=== PATIENT | female | born 1990 | race Caucasian/White ===

== ENCOUNTER → 2019-11-28 11:40 | Outpatient (CLI) | payer OTHER, SELFPAY | PROVIDERS: Visit Provider Obstetrics & Gynecology | DX: Z34.83 Encounter for supervision of other normal pregnancy, third trimester (principal); Z12.4 Encounter for screening for malignant neoplasm of cervix; Z11.3 Encounter for screening for infections with a predominantly sexual mode of transmission ==

== ENCOUNTER → 2019-12-11 13:11 | Outpatient (CLI) | payer OTHER, SELFPAY ==
[2019-12-11 14:05] LABS: Absolute Lymphocyte Count 1.49 X10^3/uL (0.83-4.51); Basophil# 0.02 X10^3/uL; Basophil% 0.3 % (0-1); Eosinophil# 0.03 X10^3/uL; Eosinophils% 0.5 % (0-5); Hematocrit 39.7 % (37-47); Lymphocyte # 1.49 X10^3/ul (4.0); Mean Corp Hgb Conc 32.7 g/dL (32-36); Mean Corpuscular Hgb 29.9 pg (27.0-32.0); Mean Corpuscular Volume 91.3 fL (81-99); Mean Platelet Vol. 10.2 fl (6.2-12.0); Monocyte# 0.41 X10^3/uL; Monocyte% 6.9 % (0-10); NRBC Flagged by Analyzer 0 % (0-5); Platelet Count 277 K/mm3 (150-450); RBC Distribution Width SD 43.6 fl (35.1-43.9); Red Blood Count 4.35 M/mm3 (4.2-5.4)
[2019-12-11 14:06] LABS: Color, Urine Yellow (Yellow); Glucose, Dipstick Normal (Normal); Ketone-Dipstick Negative (Negative); Leukocyte Esterase-Dipstick Negative /ul (Negative); Nitrite-Dipstick Negative (Negative); Occult Blood-Urine Negative /ul (Negative); Protein-Dipstick Negative (Negative); Specific Gravity, Urine 1.015 (1.002-1.030); Urine Bilirubin Dipstick Negative (Negative); Urine Clarity Sl. Cloudy (Clear); Urine Urobilinogen Normal (Normal)
[2019-12-11 14:24] LABS: Amphetamine Urine VISTA NEGATIVE (<1000 ng/mL); Barbiturate Urine VISTA NEGATIVE (< 200 ng/mL); Benzodiazepine Urine VISTA NEGATIVE (< 200 ng/mL); Cocaine Urine VISTA NEGATIVE (< 300 ng/mL); Ecstacy Urine VISTA NEGATIVE (< 500 ng/mL); Methadone Urine VISTA NEGATIVE (< 300 ng/mL); PCP Urine VISTA NEGATIVE (< 25 ng/mL); THC Urine VISTA NEGATIVE (< 50 ng/mL); Vista UDS pH Range 8
[2019-12-11 14:38] LABS: Ferritin 105 ng/mL (8-252); Iron 99 ug/dL (50-170); Iron Binding Capacity,Total 279 ug/dL (250-450); PERCENT IRON SATURATION 35.5 % (15.0-55.0); Thyroid Stim Hormone (TSH) 0.86 uIU/mL (0.358-3.74)
[2019-12-11 15:08] LABS: HIV - WCH Non-Reactive (Nonreactive); Hepatitis B Surface Antigen Non-Reactive (Nonreactive); Hepatitis C Antibody Non-Reactive (Nonreactive); Rubella IgG 73.4 IU/mL; Vitamin B12 370 pg/mL (211-911)
[2019-12-13 00:55] LABS: Prenatal RPR NONREACTIVE (NONREACTIVE)
== END ==
PROVIDERS: Visit Provider Obstetrics & Gynecology
DX: O99.841 Bariatric surgery status complicating pregnancy, first trimester (principal); Z3A.00 Weeks of gestation of pregnancy not specified
CPT/HCPCS: 36415; 80307; 81002; 82607; 82728; 83540; 83550; 83921; 84443; 85025; 86703; 86762; 86803; 87340

== ENCOUNTER → 2020-03-18 15:20 | Outpatient (CLI) | payer OTHER, SELFPAY ==
[2020-03-18 15:30] LABS: Mucous, Urine 0 SEEN /hpf (<or=2+); Red Blood Cells-Urine 0 SEEN /hpf (0-5)
[2020-03-18 16:12] LABS: Color, Urine Yellow (Yellow); Glucose, Dipstick Normal (Normal); Ketone-Dipstick Negative (Negative); Leukocyte Esterase-Dipstick 500 /ul (Negative); Nitrite-Dipstick Negative (Negative); Occult Blood-Urine Negative /ul (Negative); Protein-Dipstick Negative (Negative); Urine Bilirubin Dipstick Negative (Negative); Urine Clarity Sl. Cloudy (Clear); Urine Urobilinogen Normal (Normal)
[2020-03-18 16:55] LABS: Bacteria 1+ /hpf (None Seen); Squamous Epithelial Cells - UA 0-5 SEEN /hpf (5-10); White Blood Cells 10-25 SEEN /hpf (0-5)
== END ==
PROVIDERS: Visit Provider Obstetrics & Gynecology
DX: O23.41 Unspecified infection of urinary tract in pregnancy, first trimester (principal); Z3A.00 Weeks of gestation of pregnancy not specified
CPT/HCPCS: 81001; 87077; 87086; 87088; 87186

== ENCOUNTER → 2020-04-15 14:22 | Outpatient (CLI) | payer OTHER, SELFPAY ==
[2020-04-15 15:56] LABS: Hematocrit 37.4 % (37-47); Mean Corp Hgb Conc 32.1 g/dL (32-36); Mean Corpuscular Hgb 30.5 pg (27.0-32.0); Mean Corpuscular Volume 94.9 fL (81-99); Platelet Count 271 K/mm3 (150-450); RBC Distribution Width CV 12.7 % (11.6-14.6); RBC Distribution Width SD 44.4 fl (35.1-43.9); Red Blood Count 3.94 M/mm3 (4.2-5.4); White Blood Count 8.8 K/mm3 (4.4-11.0)
== END ==
PROVIDERS: Visit Provider Obstetrics & Gynecology
DX: Z34.83 Encounter for supervision of other normal pregnancy, third trimester (principal); Z87.440 Personal history of urinary (tract) infections
CPT/HCPCS: 36415; 85027; 87086; 87088

== ENCOUNTER → 2020-06-18 11:47 | Outpatient (CLI) | payer OTHER, SELFPAY | PROVIDERS: Visit Provider Obstetrics & Gynecology | DX: Z36.85 Encounter for antenatal screening for Streptococcus B (principal) | CPT/HCPCS: 87081 ==

== ENCOUNTER 2020-07-14 18:55 | Inpatient (IN) | payer OTHER, SELFPAY ==
[2020-07-14 19:46] VITALS: BP 116/63; PULSE 100; PULSE 85; TEMP 37.1; O2SAT 97
[2020-07-14] MEDS: Lactated Ringers 1,000 ML 50 ML IV (20:00)
[2020-07-14 20:15] VITALS: BMI 47.5
[2020-07-14 20:23] LABS: Absolute Neutrophil Count 6.3 X10^3/uL (2.0-7.7); Basophil# 0.02 X10^3/uL; Basophil% 0.2 % (0-1); Eosinophil# 0.09 X10^3/uL; Hematocrit 35.8 % (37-47); Hemoglobin 11.8 g/dL (12.0-15.0); Lymphocyte % 22.7 % (19-41); Mean Corpuscular Hgb 28.6 pg (27.0-32.0); Mean Corpuscular Volume 86.9 fL (81-99); Mean Platelet Vol. 10.3 fl (6.2-12.0); Monocyte# 0.72 X10^3/uL; Monocyte% 7.8 % (0-10); NRBC Flagged by Analyzer 0 % (0-5); Platelet Count 320 K/mm3 (150-450); RBC Distribution Width CV 12.6 % (11.6-14.6); RBC Distribution Width SD 39.6 fl (35.1-43.9); Red Blood Count 4.12 M/mm3 (4.2-5.4); White Blood Count 9.3 K/mm3 (4.4-11.0)
[2020-07-14] MEDS: miSOPROStol 25 MCG TABLET PO (20:46)
[2020-07-14 23:16] VITALS: BP 107/56; PULSE 71
[2020-07-15] VITALS (10 sets, daily range): BP systolic 94–131; BP diastolic 55–80; PULSE 67–87; TEMP 36.2–37; O2SAT 96–99
[2020-07-15] MEDS: miSOPROStol 50 MCG TABLET PO ×4 (00:40→18:23)
--- NOTE | 2020-07-15 08:29 | PCM.HPOB.BLA ---
History and Physical Date of Admission: 07/14/20 H&P HPI: 29 yo at 40/1w, BECCA 07/14/20 by 11w US, admitted for induction of labor at term. Denies contractions, VB, LOF. Denies Walker, vision changes, chest pain, dyspnea, nausea/emesis. 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 Medications PNV, vitamin D Past Surgical History Gastric sleepve, hip surgery 1995 Social History Tobacco use: denies Alcohol use: denies Illicit drug use: denies Labs Blood type: B+ Rubella: immune Hep B/C: neg/neg HIV: neg RPR: nonreactive GBS: neg 06/18 Allergies cefdinir Review of Systems General: alert and oriented HEENT: _denies change of vision Heart/lungs: _denies CP, SOB GI: _denies nausea, vomiting, dysuria, diarrhea MSK: _denies calf pain, tenderness Physical Exam Vital Signs Temp Pulse BP Pulse Ox 07/15/20 07:19 97.9 F 82 131/80 H 07/15/20 06:07 97.8 F 67 113/63 99 07/15/20 02:09 78 104/55 L 07/15/20 02:08 97.4 F L 98 07/15/20 02:07 87 96 07/15/20 00:36 97.7 F L 98 07/14/20 23:16 71 107/56 L General: a&o x3, NAD HEENT: normocephalic, atraumatic Cardio: no JVD Resp: no increased work in breathing Abdomen: soft, gravid, nontender Extremities: _minimal-moderate edema CE: cl/th/high per RN FHT: 125/mod robyn/+accel/no decel Socastee: not tracing Labs Laboratory Results - last 24 hr 07/14/20 07/14/20 20:00 20:00 WBC 9.3 RBC 4.12 L Hgb 11.8 L Hct 35.8 L MCV 86.9 MCH 28.6 MCHC 33.0 RDW Std Deviation 39.6 RDW Coeff of Robyn 12.6 Plt Count 320 MPV 10.3 Immature Gran % (Auto) 0.300 Neut % (Auto) 68.0 Lymph % (Auto) 22.7 Blackford % (Auto) 7.8 Eos % (Auto) 1.0 Baso % (Auto) 0.2 Absolute Neuts (auto) 6.3 Absolute Lymphs (auto) 2.10 Nucleated RBC % 0 Blood Type B POSITIVE Antibody Screen NEGATIVE COVID neg Assessment & Plan 29 yo at 40/1w, BECCA 07/14/20 by 11w US, admitted for induction of labor at term. 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
[2020-07-15] MEDS: 0.9% Saline Lock 10 ML Syringe IV ×3 (15:20→23:13)
[2020-07-15 18:49] LABS: ROM Internal Control Test YES-OK TO RESULT pt. (Internal QC)
[2020-07-15 18:50] LABS: ROM Patient Test POSITIVE (Negative)
--- NOTE | 2020-07-15 19:16 | PN_ITS ---
Progress Note LABOR PROGRESS NOTE Reports contractions are intensifying. Will plan for epidural later, but does not desire any pain medication at this time. AVSS GEN - NAD< AAO x 3 FHR 135, moderate variability, + accelerations, no decelerations TOCO 2/10 min SVE deferred Laboratory Tests 07/15/20 07/14/20 07/14/20 Range/Units 18:07 20:00 20:00 WBC 9.3 (4.4-11.0) K/mm3 RBC 4.12 L (4.2-5.4) M/mm3 Hgb 11.8 L (12.0-15.0) g/dL Hct 35.8 L (37-47) % MCV 86.9 (81-99) fL MCH 28.6 (27.0-32.0) pg MCHC 33.0 (32-36) g/dL RDW Std Deviation 39.6 (35.1-43.9) fl RDW Coeff of Robyn 12.6 (11.6-14.6) % Plt Count 320 (150-450) K/mm3 MPV 10.3 (6.2-12.0) fl Immature Gran % (Auto) 0.300 (0.0-0.9) % Neut % (Auto) 68.0 (47-70) % Lymph % (Auto) 22.7 (19-41) % Morrill % (Auto) 7.8 (0-10) % Eos % (Auto) 1.0 (0-5) % Baso % (Auto) 0.2 (0-1) % Absolute Neuts (auto) 6.3 (2.0-7.7) X10^3/uL Absolute Lymphs (auto) 2.10 (0.83-4.51) X10^3/uL Nucleated RBC % 0 (0-5) % Vag Amniotic Fld Detect POSITIVE H (Negative) Blood Type B POSITIVE Antibody Screen NEGATIVE A/P: 29yo G1 @ 40 1/7wga, hx gastric sleeve, BMI >40 with SROM, Cat I FHR -misoprostol dose # 4 administered -Reviewed ROM -Will reassess at 6 hours post 50mcg cytotec STROKE Vital Signs/Narrative: Vital Signs Temp Pulse BP 07/15/20 15:22 97.9 F 67 103/62
[2020-07-15] MEDS: Acetaminophen 500 MG Tablet PO (20:12)
[2020-07-15] MEDS: fentaNYL 100 MCG/2 ML Ampul IV (23:13)
[2020-07-16] VITALS (62 sets, daily range): BP systolic 88–123; BP diastolic 48–84; PULSE 63–104; RESP 16–18; TEMP 36.4–37.5; O2SAT 91–100
[2020-07-16] MEDS: Lactated Ringers 500 ML 999 ML IV ×4 (00:59→07:19)
--- NOTE | 2020-07-16 02:06 | PCM.PN.BLA ---
Progress Note LABOR PROGRESS NOTE Reports contractions intensifying. She would like an epidural. AVSS GEN - NAD< AAO x 3 FHR 130, moderate variability, + accelerations, no decelerations TOCO 2-3/10 min SVE 0/60/-3 per RN exam A/P: 29yo G1 @ 40 2/7wga, IOL s/p cytotec with ROM, CAt I FHR -Pt inquired about proceeding with section and safety at this time. Reviewed with patient related risks, benefits, however benefits of vaginal delivery far outweight benefits of section at this time and I advised proceeding in labor. Following discussion, pt agreeable to proceed in labor. -Will plan for pitocin following epidural placement, consider attempt at espinoza bulb placement when comfortable. STROKE Vital Signs/Narrative: Vital Signs Temp Pulse BP Pulse Ox 07/16/20 02:03 84 98 07/16/20 00:53 68 118/70 07/15/20 23:04 98.6 F 85 94/55 L 97
[2020-07-16] MEDS: fentaNYL-bupivacaine (epidural) 100 ML BAG EPIDURAL ×4 (02:20→16:59)
[2020-07-16] MEDS: Oxytocin 30 units/NS 500 ml 30 UNITS/500 ML IV.SOLN IV (03:01)
[2020-07-16] MEDS: Mag Hydrox/Al Hydrox/Simeth 30 ML UDC PO (03:14)
--- NOTE | 2020-07-16 04:07 | PCM.PN.BLA ---
Progress Note LABOR PROGRESS NOTE Comfortable with epidural. No complaints. AVSS GEN - NAD, AAO x 3 FHR 120, moderatev variability, + acceleration, + variable deceleration TOCO 3-4 /10 min, irregular SVE / 75/-3, bulging bag, soft and posterior A/P: 29yo G1 @ 40 2/7wga, IOL, Cat II FHR -Maternal and statuses reassuring -Transcervical espinoza catheter placed, 30cc NS -Continue pitocin as tolerated by mother and fetus STROKE Vital Signs/Narrative: Vital Signs Temp Pulse BP Pulse Ox 07/16/20 03:59 71 104/69 07/16/20 03:43 71 89/55 L 07/16/20 03:14 73 99 07/16/20 03:11 74 100/60 07/16/20 03:09 70 98 07/16/20 03:08 68 96/55 L 07/16/20 03:04 65 99 07/16/20 03:01 66 88/52 L 07/16/20 02:59 70 99 07/16/20 02:57 68 90/50 L 07/16/20 02:56 68 89/51 L 07/16/20 02:54 72 98 07/16/20 02:52 68 95/48 L 07/16/20 02:49 71 100 07/16/20 02:46 63 96/53 L 07/16/20 02:44 69 97 07/16/20 02:41 76 105/58 L 07/16/20 02:39 72 99 07/16/20 02:38 77 109/65 07/16/20 02:34 80 98 07/16/20 02:32 90 92/63 07/16/20 02:29 97.9 F 86 98 07/16/20 02:27 80 102/58 L 07/16/20 02:24 77 98 07/16/20 02:22 84 104/57 L 07/16/20 02:19 72 99 07/16/20 02:17 92 112/73 07/16/20 02:13 95 97 07/16/20 02:11 104 H 123/84 H 07/16/20 02:08 86 98 07/16/20 02:06 90 114/79 07/16/20 02:03 84 98 07/16/20 00:53 68 118/70
[2020-07-16] MEDS: 0.9% Normal Saline Single 100 ML IV.SOLN. INTRA-UTER (04:13)
[2020-07-16] MEDS: Lactated Ringers 1,000 ML 200 ML IV ×3 (04:18→16:08)
[2020-07-16] MEDS: Ondansetron 4 MG/2 ML Vial IV (10:49)
[2020-07-16] MEDS: 0.9% Saline Lock 10 ML Syringe IV (15:26)
--- NOTE | 2020-07-16 18:32 | PN.OBGYN_ITS ---
Subjective: Patient has progressed to approximately 5 cm 70% effaced but high station. She has now been ruptured more than 30 hours and has been at 5 cm for about 4 hours after being 4 cm for about 8 hours. Multiple labor positions have been tried but despite this and adequate contractions noted by an intrauterine pressure catheter the head has failed to descend past a high station. Further, effacement has remained at 70% since about 6 AM this morning. Patient is not on any antibiotics and has not had a fever to this point. heart tones have remained reactive. We have discussed the lack of descent of the head and lack of labor progress with the patient and her who desire that we proceed with section. We have discussed the risks, benefits, and alternatives and all questions were answered. - Physical Exam Vitals/I&O's: Vital Signs Temp Pulse BP Pulse Ox 98.2 F 75 104/55 L 98 07/16/20 17:38 07/16/20 17:38 07/16/20 17:38 07/16/20 17:38 Weight: 268 lb Body Mass Index (BMI) 47.5 Intake and Output for Last 24 Hours 07/14/20 07/15/20 07/16/20 23:59 23:59 23:59 Intake Total 51.67 / 51.67 0 / 0 6210.77 / 6210.77 Output Total 2100 / 2100 Balance 51.67 / 51.67 0 / 0 4110.77 / 4110.77 Microbiology Past 72 Hours 07/14/20 21:50 Mucosa - Nose SARS-CoV-2 Antigen (Rapid) - Final Laboratory Results 07/15/20 18:07: Vag Amniotic Fld Detect POSITIVE H Current Medications Acetaminophen (Acetaminophen 500 Mg Tablet) 500 - 1,000 mg PO Q6H PRN PRN PRN Reason: Pain Score 1-3 Last Admin: 07/15/20 20:12 Dose: 1,000 mg Documented by: Al Hydroxide/Mg Hydroxide (Mag Hydrox/Al Hydrox/Simeth 30 Ml Udc) 15 - 30 ml PO Q4H PRN PRN PRN Reason: INDIGESTION Last Admin: 07/16/20 03:14 Dose: 30 ml Documented by: Citric Acid/Sodium Citrate (Sodium Citrate/Citric Acid 30 Ml Udc) 30 ml PO X1 PRN PRN Reason: Section Ephedrine Sulfate (Ephedrine Sulfate 50 Mg/Ml Ampul) 10 mg IV Q10M PRN PRN Reason: hypotension Ephedrine Sulfate (Ephedrine Sulfate 50 Mg/Ml Ampul) 10 mg IM Q30M PRN PRN Reason: hypotension Fentanyl Citrate (Fentanyl 100 Mcg/2 Ml Ampul) 25 - 50 mcg IV Q2H PRN PRN PRN Reason: Pain Score 4-10 Last Admin: 07/15/20 23:13 Dose: 50 mcg Documented by: Fentanyl/Bupivacaine/Sodium Chlor (Fentanyl-Bupivacaine (Epidural) 100 Ml Bag) 0 ml EPIDURAL UD [facility]; Protocol Last Admin: 07/16/20 16:59 Dose: 100 ml Documented by: Lactated Ringer's () 500 mls @ 999 mls/hr IV .Q31M PRN PRN Reason: Epidural Last Infusion: 07/16/20 02:24 Dose: Infused Documented by: Lactated Ringer's () 500 mls @ 999 mls/hr IV .Q31M PRN PRN Reason: Corrective Measures Last Infusion: 07/16/20 07:50 Dose: Infused Documented by: Lactated Ringer's () 1,000 mls @ 50 mls/hr IV .Q20H [facility] Last Admin: 07/16/20 16:08 Dose: 200 mls/hr Documented by: Oxytocin/Sodium Chloride () 30 units in 500 mls @ 2 mls/hr IV .Q250H [facility] Last Infusion: 07/16/20 16:11 Dose: 16 mls/hr Documented by: Nalbuphine HCl (Nalbuphine 10 Mg/Ml Ampul) 5 mg IV Q3H PRN PRN PRN Reason: ITCHING Naloxone HCl (Naloxone 0.4 Mg/Ml Syringe) 0.02 mg IV Q1M PRN PRN Reason: RR <10 and pt unresponsive Ondansetron HCl (Ondansetron 4 Mg/2 Ml Vial) 4 mg IV Q4H PRN PRN PRN Reason: NAUSEA Last Admin: 07/16/20 10:49 Dose: 4 mg Documented by: Prochlorperazine Edisylate (Prochlorperazine 10 Mg/2 Ml Vial) 10 mg IV Q6H PRN PRN PRN Reason: NAUSEA Sodium Chloride (0.9% Saline Lock 10 Ml Syringe) 10 - 40 ml IV X1 PRN PRN Reason: SALINE FLUSH Last Admin: 07/16/20 15:26 Dose: 20 ml Documented by: Medical Necessity - Tobacco Use Smoking Status: Never smoker
[2020-07-16] MEDS: Sodium Citrate/Citric Acid 30 ML UDC PO (18:47)
--- NOTE | 2020-07-16 18:55 | OP.PCM_ITS ---
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 Indication: This is a 29-year-old who presents for her first at 40+ weeks gestation for arrest of descent. Patient initially presented the day before yesterday and has been ruptured for 30+ hours. She has remained at 5 cm for greater than 4 hours and at greater than 4 cm for more than 12 hours. station remains high. care has otherwise been uneventful except for gastric sleeve surgery in the past. Her BMI is approximately 48. The patient has been counseled regarding the risk and indications of this procedure including the possibility of bleeding infection and injury to surrounding structures such as bowel bladder. All questions were answered. Procedure: Patient was taken to the operating room where after spinal anesthesia was placed, the patient was prepped and draped in usual sterile fashion and a Valenzuela catheter was placed. The abdomen was entered through a Pfannenstiel incision and peritoneum was entered bluntly. After developing a bladder flap on the lower uterine segment a low transverse incision was made on the uterus and head was easily delivered onto the operative field the nose mouth and oropharynx were bulb suctioned. Subsequently a viable male infant was born with Apgars of 9/9. The infant was noted to cry move all extremities vigorously on the operative field. The umbilical cord was doubly clamped and ligated and handed to the nursery personnel who were present for the delivery. Placenta was delivered and noted to be 3 vessels and normal. Uterus was exteriorized and remaining placental tissue was removed. The uterus was then closed in 2 layers first with running locked 0 Vicryl suture followed by a second imbricating layer with 0 Vicryl suture. 0 Vicryl suture was then used in a horizontal mattress interrupted fashion to affect final hemostasis of the uterine incision line. Normal fallopian tubes and ovaries were visualized and the uterus was returned to the pelvis. Hemostasis was noted and rectus abdominis muscles were reapproximated in the midline with interrupted Number 0 Vicryl suture in a horizontal mattress fashion. Fascia was closed with running Number 1 PDS Strata fix suture. Subcutaneous tissue was irrigated with copious amounts of saline solution and then closed with running 3-0 Vicryl suture. Skin was closed with 4-0 monocryl suture in a running subcuticular fashion. Steri strips and a Mepilex dressing were placed across the incision. The patient tolerated the procedure well and was taken to the recovery room in satisfactory condition. Sponge, needle, and instrument counts were all reportedly correct. EBL was 500 cc. Ancef 2 gms IV was given prior to the procedure. Spicemen to Pathology: None Complications: None Amniotic Fluid Description: Clear Placenta Disposition: [facility] Specimen(s) sent to pathology: None Fluids Replaced: Crystalloid Cord Entanglement: None Cord Vessel Description: 3 Vessels Esitmated Blood Loss (ml): 500 cc Infant Gender: Male (1 minute): 9 (5 minute): 9 Antibiotic Given: Ancef 2 grams IV x1 Pt instructed on risks of surgery: Bleeding, Infection, Injury to surrounding structure(s) including bowel and bladder Complications: None - Admit VTE Documentation VTE Present on Admission: Yes VTE Mechan Device Prophylaxis: SCD's VTE Pharm Prophylaxis ordered?: Yes
--- NOTE | 2020-07-16 19:00 | DCINST_ITS ---
<Matt Gaytan - Last Filed: 07/16/20 19:00> Discharge Diet: No Restrictions Discharge Activity: May not drive while taking narcotic pain medications., May Shower, May Take a Tub Bath May resume sexual activity in: 4-6 weeks Lifting Restrictions: 20 pounds Additional Activity Instructions:: Nothing in the vagina for 4-6 weeks. You may return to work/school in 6 weeks. Call your doctor if your incision/area has: Continuous Slow Oozing, Sudden Increased Bleeding, Increased Pain/ Swelling, Increased Redness, Foul Smelling Discharge Call your doctor if you observe: Fever of 101 or Higher, Inability to urinate, Inability to have a bowel movement, Using more than one pad per hour Additional Instructions: If you experience any of the following, contact your healthcare provider. * Bleeding that soaks a pad every hour for 2 hours * Fever 100.4 or higher * Unrelieved incision or abdominal pain * Swelling, redness, discharge or bleeding from your incision or episiotomy site * Your incision begins to separate * Problems urinating (including inability to urinate or burning while urinating). * Visual changes * Severe headache * Flu-like symptoms * Pain or redness in one of both of your breasts * Pain, warmth, tenderness or swelling in your legs, especially the calf area * Frequent nausea and vomiting * Symptoms of depression or anxiety If you experience any of the following, call 911 or go to the nearest Emergency Room. * Chest pain * Problems breathing * Seizure activity * Partial or complete paralysis of a body part, slurred speech, weakness or drooping of the face, or a sudden inability to walk or hold your balance Allergies/Adverse Reactions: Allergies cefdinir Allergy (Verified 07/14/20 19:49) Hives Medications to take at Discharge Calcium Carbonate/Vitamin D3 [Calcium 250+D Tablet] 1 ea PO 07/14/20 Docosahexanoic Acid [ Dha] 200 mg PO 07/14/20 Omeprazole [Prilosec] 20 mg PO BID 07/14/20 Docusate Sodium [Colace] 100 mg PO BID PRN PRN #60 cap 07/16/20 Oxycodone [Oxyir] 5 mg PO Q6H PRN PRN 7 Days #20 tab 07/16/20 The following prescriptions were given: Docusate Sodium [Colace] 100 mg PO BID PRN PRN #60 cap PRN Reason: Constipation Transmission Status: Received by [id number] Oxycodone [Oxyir] 5 mg PO Q6H PRN PRN 7 Days #20 tab PRN Reason: Pain Score 6-10 Transmission Status: Received by [facility] Follow-Up: Call to make an appointment with your doctor for an incision check in 1-2 weeks. You will also need a 6 week post- follow up appointment. Test results from this visit will be discussed in further detail at your follow- up appointment, if applicable. Please Follow Up With: Matt Gaytan MD - [phone] When: Call to make an appointment for an incision check in 2 weeks. Primary Care Physician: Yann Dexter MD [Primary Care Provider] - <Jose Velásquez - Last Filed: 07/18/20 07:33> Additional Instructions: If you experience any of the following, contact your healthcare provider. * Bleeding that soaks a pad every hour for 2 hours * Fever 100.4 or higher * Unrelieved incision or abdominal pain * Swelling, redness, discharge or bleeding from your incision or episiotomy site * Your incision begins to separate * Problems urinating (including inability to urinate or burning while urinating). * Visual changes * Severe headache * Flu-like symptoms * Pain or redness in one of both of your breasts * Pain, warmth, tenderness or swelling in your legs, especially the calf area * Frequent nausea and vomiting * Symptoms of depression or anxiety If you experience any of the following, call 911 or go to the nearest Emergency Room. * Chest pain * Problems breathing * Seizure activity * Partial or complete paralysis of a body part, slurred speech, weakness or drooping of the face, or a sudden inability to walk or hold your balance Follow-Up: Call to make an appointment with your doctor for an incision check in 1-2 weeks. You will also need a 6 week post- follow up appointment. Test results from this visit will be discussed in further detail at your follow- up appointment, if applicable.
[2020-07-16] MEDS: Cefazolin 2 GM in 0.9% Normal Saline 100 ML IV (19:06)
[2020-07-16] MEDS: Oxytocin 30 units/NS 500 ml 30 UNITS/500 ML IV.SOLN 167 UNITS IV (20:43)
[2020-07-16] MEDS: Acetaminophen 500 MG Tablet 1000 MG PO (21:48)
[2020-07-16] MEDS: Pantoprazole Sodium 20 MG Tablet PO (21:48)
[2020-07-17] VITALS (19 sets, daily range): BP systolic 89–113; BP diastolic 46–67; PULSE 77–95; RESP 12–18; TEMP 35.6–36.9; O2SAT 94–99
[2020-07-17] MEDS: Lactated Ringers 1,000 ML 100 ML IV (00:10)
[2020-07-17] MEDS: Cefazolin 1 GM/50 ML BAG IV ×2 (02:42→11:17)
[2020-07-17] MEDS: Acetaminophen 500 MG Tablet 1000 MG PO ×4 (03:32→22:00)
[2020-07-17] MEDS: Ketorolac 30 MG/ML Syringe IV ×3 (05:39→17:45)
[2020-07-17 05:41] LABS: Hematocrit 33.1 % (37-47); Hemoglobin 10.5 g/dL (12.0-15.0); Mean Corp Hgb Conc 31.7 g/dL (32-36); Mean Corpuscular Hgb 28.5 pg (27.0-32.0); Mean Corpuscular Volume 89.7 fL (81-99); Mean Platelet Vol. 10.2 fl (6.2-12.0); Platelet Count 243 K/mm3 (150-450); RBC Distribution Width CV 12.5 % (11.6-14.6); RBC Distribution Width SD 40.6 fl (35.1-43.9); Red Blood Count 3.69 M/mm3 (4.2-5.4); White Blood Count 20.1 K/mm3 (4.4-11.0)
--- NOTE | 2020-07-17 08:25 | PCM.PN.OB ---
Subjective: No issues overnight. No flatus yet. Had emesis x 1 in OR, but none since then and denies nausea. Tolerates clears PO. Stood up and denies dizziness, but not yet to chair. Is changing pad every 2-3 hours. Objective: AVSS - Physical Exam Vitals/I&O's: Vital Signs Temp Pulse Resp BP Pulse Ox 97.8 F 82 12 102/54 L 96 07/17/20 05:07 07/17/20 07:15 07/17/20 07:15 07/17/20 05:07 07/17/20 07:15 Oxygen Delivery Method Room Air Weight: 121.563 kg Body Mass Index (BMI) 47.5 Intake and Output for Last 24 Hours 07/15/20 07/16/20 07/17/20 23:59 23:59 23:59 Intake Total 0 / 0 8145.43 / 8145.43 2550 / 2550 Output Total 2700 / 2700 325 / 325 Balance 0 / 0 5445.43 / 5445.43 2225 / 2225 General: Alert, Oriented x3, Cooperative, No apparent distress HEENT: Atraumatic, Normocephalic Lungs: Clear to auscultation, Normal air movement Cardiovascular: Regular rate, Regular Rhythm, Normal S1, Normal S2 Abdomen: Soft, Non Tender, Non-Distended, Hypoactive Bowel Sounds, - - Fundus firm and nontender at 2 fw below umbilicus, lochia moderate Neurological: Neuro grossly intact Psych/Mental Status: Normal Affect, Appropriate, Alert and oriented to time, place, person, mood and affect Microbiology Past 72 Hours 07/14/20 21:50 Mucosa - Nose SARS-CoV-2 Antigen (Rapid) - Final Laboratory Results 07/17/20 05:30: WBC 20.1 H, RBC 3.69 L, Hgb 10.5 L, Hct 33.1 L, MCV 89.7, MCH 28.5, MCHC 31.7 L, RDW Std Deviation 40.6, RDW Coeff of Robyn 12.5, Plt Count 243, MPV 10.2 Current Medications Acetaminophen (Acetaminophen 500 Mg Tablet) 1,000 mg PO Q6H [facility] Last Admin: 07/17/20 03:32 Dose: 1,000 mg Documented by: Bisacodyl (Bisacodyl 10 Mg Suppository) 10 mg RECTAL UD PRN PRN Reason: If no BM Diphenhydramine HCl (Diphenhydramine 25 Mg Capsule) 25 mg PO Q6H PRN PRN PRN Reason: ITCHING Stop: 07/17/20 21:14 Enoxaparin Sodium (Enoxaparin 40 Mg/0.4 Ml Syringe) 40 mg SC DAILY [facility] Hydrocortisone (Hydrocortisone 2.5% Crm) 1 applic TOPICAL TID PRN PRN; Protocol PRN Reason: Discomfort Lactated Ringer's () 1,000 mls @ 100 mls/hr IV .Q10H [facility] Last Admin: 07/17/20 00:10 Dose: 100 mls/hr Documented by: Cefazolin Sodium () 1 gm in 50 mls @ 150 mls/hr IV Q8H [facility] Stop: 07/17/20 11:19 Last Infusion: 07/17/20 03:27 Dose: Infused Documented by: Ibuprofen (Ibuprofen 600 Mg Tablet) 600 mg PO Q6H [facility] Ketorolac Tromethamine (Ketorolac 30 Mg/Ml Syringe) 30 mg IV Q6H [facility] Stop: 07/17/20 19:31 Last Admin: 07/17/20 05:39 Dose: 30 mg Documented by: Measles/Mumps/Rubella Vaccine Live (Measles,Mumps&Rubella Vaccine 0.5 Ml Vial) 0.5 ml SC .ONCE ONE Stop: 07/17/20 10:01 Methylergonovine Maleate (Methylergonovine 0.2 Mg/Ml Ampul) 0.2 mg IM X1 PRN PRN Reason: Uterine Atony Nalbuphine HCl (Nalbuphine 10 Mg/Ml Ampul) 5 mg IV Q3H PRN PRN PRN Reason: ITCHING Stop: 07/17/20 21:14 Naloxone HCl (Naloxone 0.4 Mg/Ml Syringe) 0.02 mg IV Q1M PRN PRN Reason: RR <10 and pt unresponsive Ondansetron HCl (Ondansetron 4 Mg/2 Ml Vial) 4 mg IV Q4H PRN PRN PRN Reason: Nausea Oxycodone HCl (Oxycodone 5 Mg Tablet) 5 - 10 mg PO Q4H PRN PRN PRN Reason: Pain Score 4-10 Pantoprazole Sodium (Pantoprazole Sodium 20 Mg Tablet) 20 mg PO BID [facility] Last Admin: 07/16/20 21:48 Dose: 20 mg Documented by: Prochlorperazine Edisylate (Prochlorperazine 10 Mg/2 Ml Vial) 10 mg IV Q6H PRN PRN PRN Reason: NAUSEA Senna/Docusate Sodium (Senna/Docusate Sodium 1 Tablet) 1 - 2 tablet PO DAILY [facility] Simethicone (Simethicone 80 Mg Tablet) 80 mg PO [facility] PRN PRN Reason: Indigestion/stomach pain Sodium Chloride (0.9% Saline Lock 10 Ml Syringe) 5 - 15 ml IV UD PRN PRN Reason: SALINE FLUSH Medical Necessity - Tobacco Use Smoking Status: Never smoker Assessment/Plan 29yo POD#1 s/p PLTCS doing well. -Rh positive -Routine postop care
[2020-07-17] MEDS: Enoxaparin 40 MG/0.4 ML Syringe SC (08:30)
[2020-07-17] MEDS: 0.9% Saline Lock 10 ML Syringe IV ×2 (11:17→17:45)
[2020-07-17] MEDS: Senna/Docusate Sodium 1 Tablet PO (11:18)
[2020-07-17] MEDS: Pantoprazole Sodium 20 MG Tablet PO ×2 (11:18→22:00)
--- NOTE | 2020-07-17 19:35 | NURSING ---
Pt up for first void, 100ml output. Urine output low with espinoza catheter in per previous RN, espinoza removed on previous shift. Will continue to monitor urine output. Pt states she feels that bladder is empty after void.
[2020-07-17] MEDS: Ibuprofen 600 MG Tablet PO (23:42)
[2020-07-18] MEDS: oxyCODONE 5 MG Tablet PO (01:37)
[2020-07-18 02:30] VITALS: BP 109/62; PULSE 82; RESP 18; TEMP 36.1; O2SAT 97
[2020-07-18] MEDS: Acetaminophen 500 MG Tablet 1000 MG PO (04:06)
[2020-07-18] MEDS: Ibuprofen 600 MG Tablet PO (05:47)
--- NOTE | 2020-07-18 07:33 | PN.OBGYN_ITS ---
Subjective: no Overnight complaints pain well controlled. - Physical Exam Vitals/I&O's: Vital Signs Temp Pulse Resp BP Pulse Ox 96.9 F L 82 18 109/62 97 07/18/20 02:30 07/18/20 02:30 07/18/20 02:30 07/18/20 02:30 07/18/20 02:30 Oxygen Delivery Method Room Air Weight: 268 lb Body Mass Index (BMI) 47.5 Intake and Output for Last 24 Hours 07/16/20 07/17/20 07/18/20 23:59 23:59 23:59 Intake Total 8145.43 / 8145.43 4338.33 / 4338.33 Output Total 2700 / 2700 750 / 750 800 / 800 Balance 5445.43 / 5445.43 3588.33 / 3588.33 -800 / -800 General: Alert, Oriented x3, Cooperative HEENT: Atraumatic, PERRLA, Normocephalic Oral: Moist Mucosa Neck: Supple, No JVD Abdomen: Soft, Non Tender Extremities: No clubbing, No cyanosis, No edema Neurological: Neuro grossly intact Psych/Mental Status: Normal Affect, Appropriate, Alert and oriented to time, place, person, mood and affect Current Medications Acetaminophen (Acetaminophen 500 Mg Tablet) 1,000 mg PO Q6H [facility] Last Admin: 07/18/20 04:06 Dose: 1,000 mg Documented by: Bisacodyl (Bisacodyl 10 Mg Suppository) 10 mg RECTAL UD PRN PRN Reason: If no BM Enoxaparin Sodium (Enoxaparin 40 Mg/0.4 Ml Syringe) 40 mg SC DAILY [facility] Last Admin: 07/17/20 08:30 Dose: 40 mg Documented by: Hydrocortisone (Hydrocortisone 2.5% Crm) 1 applic TOPICAL TID PRN PRN; Protocol PRN Reason: Discomfort Ibuprofen (Ibuprofen 600 Mg Tablet) 600 mg PO Q6H [facility] Last Admin: 07/18/20 05:47 Dose: 600 mg Documented by: Methylergonovine Maleate (Methylergonovine 0.2 Mg/Ml Ampul) 0.2 mg IM X1 PRN PRN Reason: Uterine Atony Naloxone HCl (Naloxone 0.4 Mg/Ml Syringe) 0.02 mg IV Q1M PRN PRN Reason: RR <10 and pt unresponsive Ondansetron HCl (Ondansetron 4 Mg/2 Ml Vial) 4 mg IV Q4H PRN PRN PRN Reason: Nausea Oxycodone HCl (Oxycodone 5 Mg Tablet) 5 - 10 mg PO Q4H PRN PRN PRN Reason: Pain Score 4-10 Last Admin: 07/18/20 01:37 Dose: 5 mg Documented by: Pantoprazole Sodium (Pantoprazole Sodium 20 Mg Tablet) 20 mg PO BID [facility] Last Admin: 07/17/20 22:00 Dose: 20 mg Documented by: Prochlorperazine Edisylate (Prochlorperazine 10 Mg/2 Ml Vial) 10 mg IV Q6H PRN PRN PRN Reason: NAUSEA Senna/Docusate Sodium (Senna/Docusate Sodium 1 Tablet) 1 - 2 tablet PO DAILY [facility] Last Admin: 07/17/20 11:18 Dose: 2 tablet Documented by: Simethicone (Simethicone 80 Mg Tablet) 80 mg PO HS PRN PRN Reason: Indigestion/stomach pain Sodium Chloride (0.9% Saline Lock 10 Ml Syringe) 5 - 15 ml IV UD PRN PRN Reason: SALINE FLUSH Last Admin: 07/17/20 17:45 Dose: 10 ml Documented by: Medical Necessity - Tobacco Use Smoking Status: Never smoker Assessment/Plan Postop day 2. Pain well controlled. Okay to discharge home.
[2020-07-18 09:00] VITALS: BP 104/76; PULSE 88; RESP 15; TEMP 36.1
[2020-07-18] MEDS: Pantoprazole Sodium 20 MG Tablet PO (09:38)
[2020-07-18] MEDS: Senna/Docusate Sodium 1 Tablet PO (09:38)
[2020-07-18] MEDS: Enoxaparin 40 MG/0.4 ML Syringe SC (09:38)
--- NOTE | 2020-07-18 10:18 | NURSING ---
huddle completed with mother, nursery and ped notified
--- NOTE | 2020-07-25 08:51 | PCM.DC.SUM ---
Discharge Date and Diagnosis Date of Admission: 07/14/20 Date of Discharge: 07/18/20 Hospital Course and Treatment Imaging Results: none none Operations: - - section Procedures: None Summary of Care Provided: The patient is a 29 year old F arrives for induction of labor at term. Failure to progress, primary c/s. [] - Physical Exam Vitals/I&O's: Vital Signs Temp Pulse Resp BP Pulse Ox 97.0 F L 88 15 104/76 97 07/18/20 09:00 07/18/20 09:00 07/18/20 09:00 07/18/20 09:00 07/18/20 02:30 Oxygen Delivery Method Room Air Weight: 268 lb Body Mass Index (BMI) 47.5 General: Alert, Oriented x3, Cooperative, No apparent distress HEENT: Atraumatic, PERRLA Oral: Moist Mucosa Neck: Supple Abdomen: Soft, Non Tender, Non-Distended, - - bandage clean dry and intact Neurological: Neuro grossly intact Psych/Mental Status: Normal Affect, Appropriate, Alert and oriented to time, place, person, mood and affect Discharge Diet: No Restrictions Discharge Activity: May not drive while taking narcotic pain medications., May Shower, May Take a Tub Bath May resume sexual activity in: 4-6 weeks Additional Activity Instructions:: Nothing in the vagina for 4-6 weeks. You may return to work/school in 6 weeks. Call your doctor if your incision/area has: Continuous Slow Oozing, Sudden Increased Bleeding, Increased Pain/ Swelling, Increased Redness, Foul Smelling Discharge Call your doctor if you observe: Fever of 101 or Higher, Inability to urinate, Inability to have a bowel movement, Using more than one pad per hour Home Medications: Medications to take at Discharge Calcium Carbonate/Vitamin D3 [Calcium 250+D Tablet] 1 ea PO 07/14/20 Docosahexanoic Acid [ Dha] 200 mg PO 07/14/20 Omeprazole [Prilosec] 20 mg PO BID 07/14/20 Docusate Sodium [Colace] 100 mg PO BID PRN PRN #60 cap 07/16/20 Following Prescriptions Were Given to Patient: Docusate Sodium [Colace] 100 mg PO BID PRN PRN #60 cap PRN Reason: Constipation Transmission Status: Received by MARIA ELENA GUERRA Primary Care Physician: Yann Dexter MD [Primary Care Provider] - Please Follow Up With: Matt Gaytan MD - [phone] When: Call to make an appointment for an incision check in 2 weeks. Medical Necessity - Tobacco Use Smoking Status: Never smoker Meaningful Use Info Meaningful Use Diagnoses (Choose all that apply): None applicable
== END 2020-07-18 10:05 | disposition home or self-care (01) | DRG 788 ==
PROVIDERS: Obstetrics & Gynecology; Admitting Provider Obstetrics & Gynecology; PCP Family Medicine; Visit Provider Obstetrics & Gynecology
DX: O62.1 Secondary uterine inertia (principal); O76 Abnormality in fetal heart rate and rhythm complicating labor and delivery; O32.4XX0 Maternal care for high head at term, not applicable or unspecified; O99.214 Obesity complicating childbirth; O99.844 Bariatric surgery status complicating childbirth; E66.01 Morbid (severe) obesity due to excess calories; Z3A.40 40 weeks gestation of pregnancy; Z37.0 Single live birth
CPT/HCPCS: 59025; 59050; 84112; 85025; 85027; 86850; 86900; 86901; 87426; 99218; J7120; A4216; G0378; J2405

== ENCOUNTER → 2020-08-06 16:34 | Outpatient (CLI) | payer OTHER, SELFPAY ==
[2020-07-14 20:15] VITALS: BMI 47.5
== END ==
PROVIDERS: PCP Family Medicine; Visit Provider Obstetrics & Gynecology
DX: O90.0 Disruption of cesarean delivery wound (principal); O86.02 Infection of obstetric surgical wound, deep incisional site
CPT/HCPCS: 87070; 87077; 87186; 87205

== ENCOUNTER → 2020-08-07 13:11 | Outpatient (CLI) | payer OTHER, SELFPAY ==
[2020-07-14 20:15] VITALS: BMI 47.5
--- NOTE | 2020-08-07 13:13 | CT_ITS ---
STUDY: CT ABDOMEN AND PELVIS WITHOUT CONTRAST REASON FOR EXAM: Female, 30 years old. LUMP ON RIGHT LOWER ABDOMEN. FLUID DRAINED YESTERDAY, GASTRIC SLEEVE ONE YR AGO, 3 WKS AGO RADIATION DOSAGE (If Supplied By Facility): CTDIvol = ( 22.31 ) mGy, DLP = ( 1397.30 ) mGycm TECHNIQUE: Transaxial images were obtained from the dome of the diaphragm to the symphysis pubis without oral contrast, and without intravenous contrast. Sagittal and coronal images were reconstructed. Individualized dose optimization techniques were used for this CT. COMPARISON: None. FINDINGS: The visualized lung bases are unremarkable. The visualized portions of the heart are within normal limits. Normal liver. Findings suggestive of sludge in the gallbladder lumen. Normal spleen. Normal pancreas. Normal bilateral adrenal glands. Normal right kidney. Normal left kidney. There is a small hiatal hernia. Status post partial subtotal gastrectomy. Normal small intestine. Normal colon. The appendix is visualized and appears normal. Normal abdominal aorta. Normal inferior vena cava. Normal retroperitoneum. Normal urinary bladder. Increased markings with areas of confluence are seen in the deep subcutaneous tissue overlying the lower right anterior abdominal wall. This may represent postoperative changes following a recent section. Normal osseous structures. CT/Abdomen/Pelvis without Cont IMPRESSION: Increased markings with areas of confluence in the right anterior lower abdominal pelvic wall suggestive of a postoperative changes. Electronically Signed: Jonnathan Blair MD at 14:10 EST , Service support ,
== END ==
PROVIDERS: PCP Family Medicine; Visit Provider Obstetrics & Gynecology
DX: O86.02 Infection of obstetric surgical wound, deep incisional site (principal)
CPT/HCPCS: 74176

== ENCOUNTER → 2021-12-16 | Outpatient (CLI) | payer BC, SELFPAY ==
[2021-12-16 16:33] LABS: hCG Titer Quant., Serum 54697 mIU/mL (1-3)
[2021-12-21 11:26] LABS: Chlamydia By Nucleic Acid AMP Negative (Negative)
[2021-12-21 19:29] LABS: Gonococcus By Nucleic Acid AMP Negative (Negative)
== END | disposition home or self-care (01) ==
PROVIDERS: PCP Family Medicine; Referring Provider Obstetrics & Gynecology; Visit Provider Obstetrics & Gynecology
DX: O09.90 Supervision of high risk pregnancy, unspecified, unspecified trimester (principal)
CPT/HCPCS: 36415; 84702; 87491; 87591

== ENCOUNTER → 2021-12-17 | Outpatient (CLI) | payer BC, SELFPAY ==
--- NOTE | 2021-12-17 12:38 | US_ITS ---
STUDY: FIRST TRIMESTER OBSTETRICAL ULTRASOUND REASON FOR EXAM: Female, 31 years old missed -- STAT read LMP: Unknown. TECHNIQUE: Transabdominal and Transvaginal TECHNICAL QUALITY: Adequate. PRIOR ULTRASOUND: None. FINDINGS: There is visualization of a single gestational sac in a normal intrauterine position. The mean sac diameter (MSD) measures 4.3 cm, indicating an estimated gestational age (EGA) of 9 weeks, 6 days. The gestational sac shape is within normal limits. There is no demonstrated yolk sac. The placenta is non-visualized. There is visualization of a live embryo. The crown-rump length (CRL) measures 3.2 cm, indicating an estimated gestational age (EGA) of weeks, 5 days. There is demonstrated cardiac activity with a heart rate of 167 bpm. The estimated gestation age (EGA) by LMP is 9 weeks, 4 days. The estimated date of delivery (BECCA) by LMP is 07/18/2022. The estimated gestation age (EGA) by US is 9 weeks, 3 days. The estimated date of delivery (BECCA) by US is 2022. The uterus measures 11 cm x 9.3 cm x 7.3 centimeters. There is no demonstrated uterine fibroid. The cervix is closed. The ovaries were not visualized. There is no fluid in the cul de sac. US/Transvaginal w/Preg US IMPRESSION: Single live intrauterine gestation with a mean gestational age of 9 weeks and 3 days. Electronically Signed: Jonnathan Blair MD at 13:38 EDT ,
== END | disposition home or self-care (01) ==
LOC: OPUS 12:25
PROVIDERS: PCP Family Medicine; Referring Provider Obstetrics & Gynecology; Visit Provider Obstetrics & Gynecology
DX: O20.0 Threatened abortion (principal)
CPT/HCPCS: 76817

== ENCOUNTER → 2022-01-07 | Outpatient (CLI) | payer BC, SELFPAY ==
[2022-01-07 10:58] LABS: Hemoglobin A1c 5.5 % (3.8-5.6)
[2022-01-07 11:30] LABS: NATERA MAILED SPECIMEN
== END | disposition home or self-care (01) ==
LOC: PAVLAB 10:24
PROVIDERS: PCP Family Medicine; Referring Provider Obstetrics & Gynecology; Visit Provider Obstetrics & Gynecology
DX: O99.210 Obesity complicating pregnancy, unspecified trimester (principal)
CPT/HCPCS: 36415; 83036

== ENCOUNTER → 2022-02-02 | Outpatient (CLI) | payer BC, SELFPAY ==
[2022-02-02 10:45] LABS: Vitamin B12 294 pg/mL (211-911); Vitamin D,25 Hydroxy 32.8 ng/mL
[2022-02-02 11:07] LABS: Calcium,Total 8.8 mg/dL (8.5-10.1); Ferritin 7 ng/mL (8-252); Iron 79 ug/dL (50-170); Iron Binding Capacity,Total 434 ug/dL (250-450)
== END | disposition home or self-care (01) ==
LOC: PAVLAB 09:33
PROVIDERS: PCP Family Medicine; Referring Provider Nurse Practitioner Women's Health; Visit Provider Nurse Practitioner Women's Health
DX: Z34.90 Encounter for supervision of normal pregnancy, unspecified, unspecified trimester (principal); Z98.84 Bariatric surgery status
CPT/HCPCS: 36415; 82306; 82310; 82607; 82728; 82746; 83540; 83550; 84425

== ENCOUNTER → 2022-03-02 | Outpatient (CLI) | payer BC, SELFPAY ==
[2022-03-02 09:43] LABS: Basophil# 0.02 X10^3/uL; Basophil% 0.3 % (0-1); Eosinophil# 0.07 X10^3/uL; Hematocrit 32.6 % (37-47); Hemoglobin 10.5 g/dL (12.0-15.0); Lymphocyte % 22.4 % (19-41); Mean Corp Hgb Conc 32.2 g/dL (32-36); Mean Corpuscular Hgb 27.6 pg (27.0-32.0); Mean Corpuscular Volume 85.6 fL (81-99); Mean Platelet Vol. 9.6 fl (6.2-12.0); Monocyte# 0.44 X10^3/uL; Monocyte% 6.2 % (0-10); NRBC Flagged by Analyzer 0 % (0-5); Neutrophil # 4.98 X10^3/uL (2.7-7.7); Neutrophil % 69.8 % (47-70); Platelet Count 265 K/mm3 (150-450); RBC Distribution Width CV 13.8 % (11.6-14.6); RBC Distribution Width SD 43.3 fl (35.1-43.9); Red Blood Count 3.81 M/mm3 (4.2-5.4); White Blood Count 7.1 K/mm3 (4.4-11.0)
[2022-03-02 10:06] LABS: Hemoglobin A1c 5.3 % (3.8-5.6)
[2022-03-02 10:36] LABS: HIV - WCH Non-Reactive (Nonreactive); Hepatitis B Surface Antigen Non-Reactive (Nonreactive); Hepatitis C Antibody Non-Reactive (Nonreactive); Rubella IgG Reactive (Nonreactive); Syphilis Antibodies Non-reactive
== END | disposition home or self-care (01) ==
LOC: PAVLAB 09:23
PROVIDERS: PCP Family Medicine; Referring Provider Obstetrics & Gynecology; Visit Provider Obstetrics & Gynecology
DX: Z34.90 Encounter for supervision of normal pregnancy, unspecified, unspecified trimester (principal)
CPT/HCPCS: 36415; 83036; 85025; 86703; 86762; 86780; 86803; 86850; 86900; 86901; 87340

== ENCOUNTER 2022-04-27 09:32 | Outpatient (CLI) | payer BC, SELFPAY ==
[2022-04-27 10:12] LABS: Absolute Lymphocyte Count 1.87 X10^3/uL (0.83-4.51); Absolute Neutrophil Count 5.9 X10^3/uL (2.0-7.7); Basophil# 0.02 X10^3/uL; Basophil% 0.2 % (0-1); Eosinophil# 0.05 X10^3/uL; Eosinophils% 0.6 % (0-5); Hematocrit 30.1 % (37-47); Hemoglobin 9.8 g/dL (12.0-15.0); Lymphocyte # 1.87 X10^3/ul (0.83-4.51); Lymphocyte % 22.6 % (19-41); Mean Corp Hgb Conc 32.6 g/dL (32-36); Mean Corpuscular Hgb 26.5 pg (27.0-32.0); Mean Corpuscular Volume 81.4 fL (81-99); Monocyte% 4.8 % (0-10); NRBC Flagged by Analyzer 0 % (0-5); Neutrophil # 5.91 X10^3/uL (2.7-7.7); Neutrophil % 71.4 % (47-70); Platelet Count 327 K/mm3 (150-450); RBC Distribution Width CV 13.7 % (11.6-14.6); RBC Distribution Width SD 40.9 fl (35.1-43.9); White Blood Count 8.3 K/mm3 (4.4-11.0)
[2022-04-27 10:50] LABS: Vitamin B12 209 pg/mL (211-911)
[2022-04-27 11:12] LABS: Iron 28 ug/dL (50-170); Iron Binding Capacity,Total 533 ug/dL (250-450)
[2022-04-28 09:06] LABS: Transferrin 439 mg/dL (192-364)
== END 2022-04-27 23:59 | disposition home or self-care (01) ==
LOC: PAVLAB 09:33
PROVIDERS: PCP Family Medicine; Referring Provider Obstetrics & Gynecology; Visit Provider Obstetrics & Gynecology
DX: Z98.84 Bariatric surgery status (principal)
CPT/HCPCS: 36415; 82607; 82746; 83540; 83550; 84466; 85025

== ENCOUNTER → 2022-05-24 | Outpatient (CLI) | payer BC, MEDICAID, SELFPAY ==
--- NOTE | 2022-05-24 07:41 | US_ITS ---
STUDY: SECOND AND THIRD TRIMESTER OBSTETRICAL ULTRASOUND - LIMITED REASON FOR EXAM: Female, 31 years old growth -- 32 weeks LMP: 10/11/2021. PRIOR ULTRASOUND: Comparison is made with prior study dated 12/17/2021. TECHNIQUE: Transabdominal TECHNICAL QUALITY: Adequate. FINDINGS: There is a single intrauterine fetus. The fetus is in a cephalic presentation. There is demonstrated cardiac activity with a heart rate of 145 bpm. There is a normal amniotic fluid volume. The largest amniotic fluid pocket measures 4.87 cm. The amniotic fluid index (ELISA) is 15.8 cm. The placenta is posterior in location and is not low lying. There are Grade 1 placental changes. The cervix measures 4 cm in length. BIOMETRY: BPD: 8.03 cm: 32 weeks, 2 days HC: 30.13 cm: 33 weeks, 3 days AC: 29.26 on the: 33 weeks, 2 days FL: 6.07 cm: 31 weeks, 4 days Age by LMP: 32 weeks, 1 days. BECCA by LMP: 07/18/2022. age by current US: 32 weeks, 4 days. BECCA by current US: 07/15/2022. Estimated weight: 8 grams, +/- 304 grams, 57 percentile. US/OB Limited With Biometrics IMPRESSION: Single live uterine gestation with mean gestational age of 32 weeks and 4 days. Electronically Signed: Jonnathan Blair MD at 13:07 EST ,
[2022-05-24 09:54] LABS: Absolute Lymphocyte Count 1.68 X10^3/uL (0.83-4.51); Absolute Neutrophil Count 4.6 X10^3/uL (2.0-7.7); Basophil# 0.01 X10^3/uL; Basophil% 0.1 % (0-1); Eosinophil# 0.06 X10^3/uL; Eosinophils% 0.9 % (0-5); Hematocrit 29.5 % (37-47); Hemoglobin 8.9 g/dL (12.0-15.0); Lymphocyte # 1.68 X10^3/ul (0.83-4.51); Lymphocyte % 24.8 % (19-41); Mean Corp Hgb Conc 30.2 g/dL (32-36); Mean Corpuscular Hgb 23.7 pg (27.0-32.0); Mean Corpuscular Volume 78.5 fL (81-99); Mean Platelet Vol. 10.1 fl (6.2-12.0); Monocyte# 0.35 X10^3/uL; Monocyte% 5.2 % (0-10); NRBC Flagged by Analyzer 0 % (0-5); Neutrophil # 4.64 X10^3/uL (2.7-7.7); Neutrophil % 68.6 % (47-70); Platelet Count 349 K/mm3 (150-450); RBC Distribution Width CV 14.9 % (11.6-14.6); RBC Distribution Width SD 42.5 fl (35.1-43.9); Red Blood Count 3.76 M/mm3 (4.2-5.4); White Blood Count 6.8 K/mm3 (4.4-11.0)
[2022-05-24 10:19] LABS: ALB/GLOB Ratio 0.6 RATIO (0.9-2.4); AST(SGOT) 32 U/L (15-37); Alanine Aminotransfer ALT/SGPT 36 U/L (13-56); Albumin, Serum 2.2 g/dL (3.2-5.0); Alkaline Phosphatase 106 U/L (45-117); Anion Gap 10 (5-15); BUN 6 mg/dL (7-18); BUN/Creat Ratio 13.7 RATIO (10-20); Calcium,Total 8.3 mg/dL (8.5-10.1); Chloride 109 mmol/L (98-107); Creatinine, Serum 0.44 mg/dL (0.55-1.02); EST Glomerular Filtration Rate 176 mL/min (>60); Est Glom Filt Rate - Afr Amer 213 mL/min (>60); Glucose 87 mg/dL (74-106); Potassium 3.9 mmol/L (3.5-5.1); Protein, Total 6.2 g/dL (6.4-8.2); Sodium Level 140 mmol/L (136-145)
== END | disposition home or self-care (01) ==
PROVIDERS: PCP Family Medicine; Referring Provider Obstetrics & Gynecology; Visit Provider Obstetrics & Gynecology
DX: O99.210 Obesity complicating pregnancy, unspecified trimester (principal); Z3A.32 32 weeks gestation of pregnancy
CPT/HCPCS: 36415; 76816; 80053; 85025

== ENCOUNTER → 2022-06-07 | Outpatient (CLI) | payer BC, MEDICAID, SELFPAY ==
--- NOTE | 2022-06-07 08:10 | US_ITS ---
STUDY: OBSTETRICAL ULTRASOUND - BIOPHYSICAL PROFILE REASON FOR EXAM: Female, 31 years old well being -- 34 weeks LMP: 10/11/2021. PRIOR ULTRASOUND: Comparison is made with prior study dated 05/24/2022. TECHNIQUE: Transabdominal TECHNICAL QUALITY: Adequate. FINDINGS: There is a single intrauterine fetus. The fetus is in a cephalic presentation. There is demonstrated cardiac activity with a heart rate of 131 bpm. There is a normal amniotic fluid volume. The largest amniotic fluid pocket measures 6.8 cm x 4.3 cm. The amniotic fluid index (ELISA) is 19.1 cm. The placenta is posterior in location and is not low lying. There are Grade 1 placental changes. Age by LMP: 34 weeks, 1 days. BECCA by LMP: 07/18/2022. age by prior US: 34 weeks, 4 days. BECCA by prior US: 07/15/2022. BIOPHYSICAL PROFILE: Breathing Movements (FBM): 2 Gross Body Movements (GBM): 2 Tone (FT): 2 Amniotic Fluid Volume (AFV): 2 TOTAL SCORE: 8 / 8 US/Biophysical Prof W/O Non Stres IMPRESSION: Normal biophysical profile of 8. Electronically Signed: Jonnathan Blair MD at 15:17 EST ,
== END | disposition home or self-care (01) ==
LOC: OPUS 08:04
PROVIDERS: PCP Family Medicine; Visit Provider Obstetrics & Gynecology
DX: O99.210 Obesity complicating pregnancy, unspecified trimester (principal); Z3A.34 34 weeks gestation of pregnancy
CPT/HCPCS: 76819

== ENCOUNTER → 2022-06-14 | Outpatient (CLI) | payer BC, MEDICAID, SELFPAY ==
--- NOTE | 2022-06-14 08:05 | US_ITS ---
EXAM: US BIOPHYSICAL PROFILE WITHOUT NON-STRESS TESTING CLINICAL INDICATION: well being -- 35 weeks TECHNIQUE: Real-time ultrasound of the maternal pelvis for biophysical profile evaluation with image documentation. This report was created using [employer] report generation technology. COMPARISON: None. FINDINGS: BREATHING MOVEMENTS: Present. Score 2/2. GROSS BODY MOVEMENTS: Present. Score 2/2. TONE: Present. Score 2/2. QUALITATIVE AMNIOTIC FLUID VOLUME: ELISA is 21 cm. HEART RATE: heart rate is 127 bpm. PRESENTATION: There is a single intrauterine fetus in a cephalic position. PLACENTA: Placenta is posterior. OTHER FINDINGS: Biophysical profile score is 8/8. US/Biophysical Prof W/O Non Stres IMPRESSION: Intrauterine gestation with heart rate of 127 bpm biophysical profile score of 8/8. ELISA is 21 cm. Electronically Signed: Curtis France MD at 23:16 EST ,
== END | disposition home or self-care (01) ==
LOC: OPUS 08:02
PROVIDERS: PCP Family Medicine; Visit Provider Obstetrics & Gynecology
DX: O99.210 Obesity complicating pregnancy, unspecified trimester (principal); Z3A.00 Weeks of gestation of pregnancy not specified
CPT/HCPCS: 76819

== ENCOUNTER → 2022-06-15 | Outpatient (CLI) | payer BC, MEDICAID, SELFPAY ==
[2022-06-15 09:17] VITALS: BP 110/67; PULSE 100; TEMP 36.3; O2SAT 97
[2022-06-15] MEDS: 0.9% NaCl IVPB Med Flush (250 mL) 15 ML IV (09:26)
[2022-06-15] MEDS: 0.9% NaCl Peripheral Flush Adult/Peds IV (09:27)
[2022-06-15 09:57] LABS: Ferritin 6 ng/mL (8-252); Iron 24 ug/dL (50-170); Iron Binding Capacity,Total 626 ug/dL (250-450); PERCENT IRON SATURATION 3.8 % (15.0-55.0)
[2022-06-15 09:58] LABS: Vitamin B12 294 pg/mL (211-911)
[2022-06-15 11:14] VITALS: BP 102/63; PULSE 99; RESP 12; TEMP 36.4; O2SAT 100
== END | disposition home or self-care (01) ==
LOC: MEDOUTP 08:57
PROVIDERS: Nurse Practitioner Women's Health; PCP Family Medicine; Referring Provider Obstetrics & Gynecology; Visit Provider Obstetrics & Gynecology
DX: O99.019 Anemia complicating pregnancy, unspecified trimester (principal)
CPT/HCPCS: 96365; 96366; 82607; 82728; 83540; 83550; J1756; J7050; A4216

== ENCOUNTER → 2022-06-21 | Outpatient (CLI) | payer BC, MEDICAID, SELFPAY ==
--- NOTE | 2022-06-21 08:21 | US_ITS ---
STUDY: OBSTETRICAL ULTRASOUND - BIOPHYSICAL PROFILE REASON FOR EXAM: Female, 31 years old wellbeing -- week 36 LMP: 10/11/2021. PRIOR ULTRASOUND: Comparison is made with prior study dated 06/14/2022. TECHNIQUE: Transabdominal TECHNICAL QUALITY: Adequate. FINDINGS: There is a single intrauterine fetus. The fetus is in a cephalic presentation. There is demonstrated cardiac activity with a heart rate of 136 bpm. There is a normal amniotic fluid volume. The largest amniotic fluid pocket measures 5.9 cm. The amniotic fluid index (ELISA) is 22 cm. The placenta is posterior in location and is not low lying. There are Grade 1 placental changes. Age by LMP: 36 weeks, 1 days. BECCA by LMP: 07/18/2022. age by prior US: 36 weeks, 4 days. BECCA by prior US: 07/15/2022.. BIOPHYSICAL PROFILE: Breathing Movements (FBM): 2 Gross Body Movements (GBM): 2 Tone (FT): 2 Amniotic Fluid Volume (AFV): 2 TOTAL SCORE: 8 / 8 US/Biophysical Prof W/O Non Stres IMPRESSION: Normal biophysical profile of 8/8. Electronically Signed: Jonnathan Blair MD at 15:37 EST ,
== END | disposition home or self-care (01) ==
LOC: US 08:00
PROVIDERS: PCP Family Medicine; Referring Provider Obstetrics & Gynecology; Visit Provider Obstetrics & Gynecology
DX: O99.213 Obesity complicating pregnancy, third trimester (principal); Z3A.36 36 weeks gestation of pregnancy
CPT/HCPCS: 76819

== ENCOUNTER → 2022-06-22 | Outpatient (CLI) | payer BC, MEDICAID, SELFPAY ==
[2022-06-22 10:10] VITALS: BP 128/65; PULSE 116
[2022-06-22] MEDS: 0.9% NaCl IVPB Med Flush (250 mL) 15 ML IV (10:32)
[2022-06-22 12:16] VITALS: BP 119/64; PULSE 95; RESP 16; O2SAT 99
== END | disposition home or self-care (01) ==
LOC: MEDOUTP 09:56
PROVIDERS: PCP Family Medicine; Referring Provider Obstetrics & Gynecology; Visit Provider Obstetrics & Gynecology
DX: O99.013 Anemia complicating pregnancy, third trimester (principal); Z3A.00 Weeks of gestation of pregnancy not specified
CPT/HCPCS: 96365; 96366; J1756; J7050

== ENCOUNTER → 2022-06-22 | Outpatient (CLI) | payer BC, MEDICAID, SELFPAY ==
--- NOTE | 2022-06-22 12:39 | US_ITS ---
EXAM: US , LIMITED CLINICAL INDICATION: growth -- 36 week TECHNIQUE: Real-time limited ultrasound of the maternal uterus with image documentation. This report was created using [employer] report generation technology. COMPARISON: None. FINDINGS: Single live intrauterine fetus, cephalic. heart rate 127 bpm. Cervix: Not visualized. Placenta: Grade 1, fundal. Biometrics: BPD 9.3 cm, 37 weeks 6 days. HC 34.3 cm, 38 weeks 2 days. AC 35.2 cm, 39 weeks 1 day. FL 7.0 cm, 36 weeks 0 days. Sonographic age: 38 weeks 1 day. Sonographic BECCA: July 05, 2022. Estimated weight: 3439 g, 93rd percentile. US/OB Limited With Biometrics IMPRESSION: Single live intrauterine fetus, cephalic. Please see measurements. Electronically Signed: Amy Naranjo MD at 4:28 EST ,
== END | disposition home or self-care (01) ==
LOC: US 12:36
PROVIDERS: PCP Family Medicine; Visit Provider Obstetrics & Gynecology
DX: O99.210 Obesity complicating pregnancy, unspecified trimester (principal); Z3A.38 38 weeks gestation of pregnancy
CPT/HCPCS: 76816

== ENCOUNTER → 2022-06-25 | Outpatient (CLI) | payer BC, SELFPAY | END | disposition home or self-care (01) | PROVIDERS: PCP Family Medicine; Visit Provider Obstetrics & Gynecology | DX: Z3A.36 36 weeks gestation of pregnancy (principal) | CPT/HCPCS: 87081 ==

== ENCOUNTER → 2022-06-28 | Outpatient (CLI) | payer BC, MEDICAID, SELFPAY ==
--- NOTE | 2022-06-28 08:01 | US_ITS ---
STUDY: OBSTETRICAL ULTRASOUND - BIOPHYSICAL PROFILE REASON FOR EXAM: Female, 31 years old well being LMP: 10/11/2021. PRIOR ULTRASOUND: Comparison is made with prior study dated 06/22/2022. TECHNIQUE: Transabdominal TECHNICAL QUALITY: Adequate. FINDINGS: There is a single intrauterine fetus. The fetus is in a cephalic presentation. There is demonstrated cardiac activity with a heart rate of 137 bpm. There is a normal amniotic fluid volume. The largest amniotic fluid pocket measures 6.5 cm. The amniotic fluid index (ELISA) is 22 cm. The placenta is fundal and posterior in location. There are Grade 1 placental changes. Age by LMP: 37 weeks, 1 days. BECCA by LMP: 07/18/2022. BIOPHYSICAL PROFILE: Breathing Movements (FBM): 2 Gross Body Movements (GBM): 2 Tone (FT): 2 Amniotic Fluid Volume (AFV): 2 TOTAL SCORE: 8 / 8 US/Biophysical Prof W/O Non Stres IMPRESSION: Normal biophysical profile of 02/15. Electronically Signed: Jonnathan Blair MD at 9:50 EST ,
== END | disposition home or self-care (01) ==
LOC: OPUS 07:59
PROVIDERS: PCP Family Medicine; Referring Provider Obstetrics & Gynecology; Visit Provider Obstetrics & Gynecology
DX: O99.210 Obesity complicating pregnancy, unspecified trimester (principal); Z3A.00 Weeks of gestation of pregnancy not specified
CPT/HCPCS: 76819

== ENCOUNTER → 2022-06-29 | Outpatient (CLI) | payer BC, MEDICAID, SELFPAY ==
[2022-06-29 10:02] VITALS: BP 119/68; PULSE 114; RESP 16; TEMP 36.4; O2SAT 99; BMI 50.3
[2022-06-29] MEDS: 0.9% NaCl Peripheral Flush Adult/Peds IV ×2 (10:13→10:15)
[2022-06-29 12:19] VITALS: BP 105/59; PULSE 94; RESP 16
== END | disposition home or self-care (01) ==
LOC: MEDOUTP 09:54
PROVIDERS: PCP Family Medicine; Referring Provider Obstetrics & Gynecology; Visit Provider Obstetrics & Gynecology
DX: O99.013 Anemia complicating pregnancy, third trimester (principal); Z3A.00 Weeks of gestation of pregnancy not specified
CPT/HCPCS: 96365; 96366; J1756; J7050; A4216

== ENCOUNTER → 2022-07-06 | Outpatient (CLI) | payer BC, MEDICAID, SELFPAY ==
--- NOTE | 2022-07-06 08:04 | US_ITS ---
EXAM: US Biophysical Profile W/O Nonst 07/06/2022 8:07 AM INDICATION: Assessment for well-being. PROCEDURE: Ultrasound Biophysical Profile W/ Non-Stress Biophysical profile was performed by the computer engineering technologist. breathing movement 2 tone 2 Amniotic fluid volume 2 Gross body movement 2 Total 8 out of 8. Single live intrauterine is identified. Amniotic fluid index is 19.85cm, largest pocket is 6.1 cm. Placenta is posterior, not low-lying. Grade 1 heart rate is 127 beats per minute. Cervix was not measured. The cervix is closed. There is no placenta previa. US/Biophysical Prof W/O Non Stres IMPRESSION: 8 out of 8 biophysical profile, no suspicious sonographic findings Electronically Signed: Dallin Pompa MD at 9:54 EST ,
== END | disposition home or self-care (01) ==
LOC: OPUS 07:59
PROVIDERS: PCP Family Medicine; Referring Provider Obstetrics & Gynecology; Visit Provider Obstetrics & Gynecology
DX: O99.210 Obesity complicating pregnancy, unspecified trimester (principal); Z3A.00 Weeks of gestation of pregnancy not specified
CPT/HCPCS: 76819

== ENCOUNTER 2022-07-12 21:59 | Inpatient (IN) | payer BC, MEDICAID, SELFPAY ==
[2022-07-12 21:07] VITALS: BP 113/57; PULSE 103
[2022-07-12 21:08] VITALS: PULSE 103; TEMP 37.1; O2SAT 97
[2022-07-12 21:09] VITALS: PULSE 96; O2SAT 97
[2022-07-12] MEDS: Lactated Ringers 1,000 ML 999 ML IV (21:25)
[2022-07-12 21:36] VITALS: BMI 53.8
[2022-07-12 21:44] VITALS: BP 113/57; PULSE 103; RESP 16; TEMP 37.1; O2SAT 97
[2022-07-12 21:47] LABS: Absolute Lymphocyte Count 2.42 X10^3/uL (0.83-4.51); Basophil# 0.03 X10^3/uL; Basophil% 0.4 % (0-1); Eosinophil# 0.06 X10^3/uL; Eosinophils% 0.7 % (0-5); Hematocrit 33.5 % (37-47); Hemoglobin 10.4 g/dL (12.0-15.0); Lymphocyte # 2.42 X10^3/ul (0.83-4.51); Lymphocyte % 29.8 % (19-41); Mean Corpuscular Hgb 24.7 pg (27.0-32.0); Mean Corpuscular Volume 79.6 fL (81-99); Mean Platelet Vol. 9.8 fl (6.2-12.0); Monocyte# 0.59 X10^3/uL; Monocyte% 7.3 % (0-10); NRBC Flagged by Analyzer 0 % (0-5); Neutrophil % 61.4 % (47-70); POSITIVE MORPHOLOGY YES; Platelet Count 388 K/mm3 (150-450); RBC Distribution Width CV 23.9 % (11.6-14.6); RBC Distribution Width SD 68.4 fl (35.1-43.9); Red Blood Count 4.21 M/mm3 (4.2-5.4); White Blood Count 8.1 K/mm3 (4.4-11.0)
[2022-07-12 21:50] LABS: Differential Indicated SCAN CRITERIA MET
[2022-07-12 21:51] LABS: ROM Internal Control Test YES-OK TO RESULT pt. (Internal QC)
[2022-07-12 21:52] LABS: ROM Patient Test POSITIVE (Negative)
--- NOTE | 2022-07-12 22:16 | HP.PCM.OB_ITS ---
HPI - General General Date of Admission: 07/12/22 HPI Narrative TALIB MG, is a 31 F who presents IAL with SROM and regualr ctx no vb admits good fm declines tolac Maternal Data Information BECCA Calculator Estimated Delivery Date Method Current WG Current Estimate 07/18/22 LMP (Uncertain) 39w 1d PFSH PFSH Medical History Anemia Gastric polyp GERD (gastroesophageal reflux disease) Home Medications omeprazole 20 mg capsule,delayed release 20 mg PO BID Check with primary doctor 07/14/20 [History Last Taken 07/12/22] prenat.vits,mirian,ksh-bujm-lbhiz 1 tab PO DAILY Check with primary doctor 12/08/21 [History Last Taken 07/12/22] mecobalamin (vitamin B12) 1,000 mcg chewable tablet 1,000 mcg PO DAILY Check with primary doctor 06/22/22 [History Last Taken 07/12/22] Allergy/AdvReac Type Severity Reaction Status Date / Time amoxicillin [From Amoxil] Allergy Intermediate hives Verified 07/12/22 22:04 cefdinir Allergy Hives Verified 07/12/22 22:04 Family History Father Hypertension Cancer prostate Aortic aneurysm DVT (deep venous thrombosis) Mother Hypertension Grandmother Cancer cervical Surgical History S/P gastric surgery Status post hip surgery Social History adopted: No household members: significant other number of children: 1 current occupational status: employed current occupation: [employer] pets and animals: No Smoking Status: Never smoker alcohol intake: never substance use type: does not use caffeine: No do you feel safe at home: Yes additional social history: Shweta Sethi History 2 Elective abortions Hx Para 1 Spontaneous abortions Hx # Term Pregnancies Ectopic pregnancies Hx # Pregnancies Multiple births # of living children 1 Past Pregnancies Del. Date Name GA/Weeks Outcome Route Bth Weight Gen Labor Lgth Anesthesia Del Locatn Provider FOB Unknown 07/16/20 Vigil 40 live - full term 7# 5oz Male 48 hr epidural Jey Lucila Mcclendon Delivery Date: Last Updated by: Mulu Olmos SIGNAL SYSTEM TESTING MAINTAINER, SIGNAL SYSTEM TESTING MAINTAINERFlacoC IOL, FTP 4cm. Visit Details Expected Delivery Route/Plan RLTCS with SM 1/3 Plans Covid status: no vaccines. Flu vaccine: declines Tdap vaccine: given Rhogam: NA LARC form signed: yes Problem list reviewed and updated with the most current plan of care details and appropriate orders placed. Relevant counseling for the gestational age provided. Continue routine care and follow up unless otherwise noted in visit notes/problem list details OB Flowsheet Initial Weight: Not Recorded Date -?-?-?-?-?-?-?-?-?-?-?-?- EGA Weight BP Urine Prot -?-?-?-?-?-?-?-?-?-?-?-?- Glucose FHR FuHt Pres Dilation -?-?-?-?-?-?-?-?-?-?-?-?- Effaced St Visit Note 01/07/22 -?-?-?-?-?-?-?-?-?-?-?-?- 12w 4d 126.552 kg 114/82 -?-?-?-?-?-?-?-?-?-?-?-?- 170 -?-?-?-?-?-?-?-?-?-?-?-?- SM- no vb crampi ng 02/02/22 -?-?-?-?-?-?-?-?-?-?-?-?- 16w 2d 128.026 kg 110/68 Negat emmett -?-?-?-?-?-?-?-?-?-?-?-?- Negative 145 -?-?-?-?-?-?-?-?-?-?-?-?- MH-no VB, crampi ng. Nausea resolved. Will get labs today due to hx gastric bypass 03/02/22 -?-?-?-?-?-?-?-?-?-?-?-?- 20w 2d 130.351 kg 118/68 Negat emmett -?-?-?-?-?-?-?-?-?-?-?-?- Negative 150 -?-?-?-?-?-?-?-?-?-?-?-?- SM- no vb kayla huertas needs rest of new ob labs 04/06/22 -?-?-?-?-?-?-?-?-?-?-?-?- 25w 2d 134.717 kg 115/73 -?-?-?-?-?-?-?-?-?-?-?-?- 130 -?-?-?-?-?-?-?-?-?-?-?-?- SM- no vb lof ronny limon discussed diabetes screening 04/27/22 -?-?-?-?-?-?-?-?-?-?-?-?- 28w 2d 134.263 kg 130/76 Trace -?-?-?-?-?-?-?-?-?-?-?-?- Negative 132 -?-?-?-?-?-?-?-?-?-?-?-?- MH-No vB, LOF. G ood FM. Larc, tdap, CBC. Will check glucose X 1 week at 34 wk. Will do one day now. 05/11/22 -?-?-?-?-?-?-?-?-?-?-?-?- 30w 2d 134.887 kg 118/70 Negat emmett -?-?-?-?-?-?-?-?-?-?-?-?- Negative 138 -?-?-?-?-?-?-?-?-?-?-?-?- MH-No VB, LOF. G ood FM. Had episode of feeling lightheaded, resolved quickly. Reviewed small meals, high protein, force fluids. Start new Fe daily and B12. 05/24/22 -?-?-?-?-?-?-?-?-?-?-?-?- 32w 1d 135.624 kg 112/70 -?-?-?-?-?-?-?-?-?-?-?-?- 140 34 -?-?-?-?-?-?-?-?-?-?-?-?- SM- no vb lof go od fm no regualr ctx co itching on hands and feet ordered cbc cmp bile acids reviewed movement precautions 06/11/22 -?-?-?-?-?-?-?-?-?-?-?-?- 34w 5d 134.49 kg 130/82 Negati ve -?-?-?-?-?-?-?-?-?-?-?-?- Negative 145 -?-?-?-?-?--?-?-?-?-?-?-?- JV- still has so me itching. bile acids normal. Vistaril ordered. no other complaints. urine very dark. encouraged to push fluids. 06/25/22 -?-?-?-?-?-?-?-?-?-?-?-?- 36w 5d 133.356 kg 122/68 -?-?-?-?-?-?-?-?-?-?-?-?- 140 -?-?-?-?-?-?-?-?-?-?-?-?- SM- no vb lof go od fm no rgular ctx gbs done 06/30/22 -?-?-?-?-?-?-?-?-?-?-?-?- 37w 3d 136.078 kg 124/81 Negat emmett -?-?-?-?-?-?-?-?-?-?-?-?- Negative 140 42 0 -?-?-?-?-?-?-?-?-?-?-?-?- JV- no lof, vagi nal bleeding, or dec fm. rpt section set for 07/1307/08/22 -?-?-?-?-?-?-?-?-?-?-?-?- 38w 4d 137.609 kg 131/85 Negat emmett -?-?-?-?-?-?-?-?-?-?-?-?- Negative 120 42 -?-?-?-?-?-?-?-?-?-?-?-?- SM- preop done lorrie crockett for cs 07/12/22 -?-?-?-?-?-?-?-?-?-?-?-?- 39w 1d 137.801 kg 113/57 113/57 -?-?-?-?-?-?-?-?-?-?-?-?- -?-?-?-?-?-?-?-?-?-?-?-?- NST FHR Rate Baby A Baseline: 130 Variability:: Moderate Accelerations:: 15 x 15 Decelerations:: None NST Reactive:: Yes FHR Category:: Category I Uterine Activity:: q3-5 ROS Constitutional Constitutional: Reports systems reviewed and no addt'l complaints, except as documented ENT HEENT: Reports systems reviewed and no addt'l complaints, except as documented Cardiovascular Cardiovascular: Reports systems reviewed and no addt'l complaints, except as documented Respiratory/Chest Respiratory/Chest: Reports systems reviewed and no addt'l complaints, except as documented Gastrointestinal Gastrointestinal: Reports systems reviewed and no addt'l complaints, except as documented and nausea; Denies abdominal pain Genitourinary Genitourinary: Reports systems reviewed and no addt'l complaints, except as documented, contractions Details: present and frequency (regular ) and movement Details: present Musculoskeletal Musculoskeletal: Reports systems reviewed and no addt'l complaints, except as documented Integumentary Integumentary: Reports as per HPI Neurologic Neurologic: Reports systems reviewed and no addt'l complaints, except as documented Endocrine Endocrinology: Reports systems reviewed and no addt'l complaints, except as documented Vital Signs Vital Signs Vital Signs: 07/12/22 21:07 07/12/22 21:07 07/12/22 21:09 Temperature Temperature Source Pulse Rate 103 H 96 Respiratory Rate Blood Pressure 113/57 L Blood Pressure Mean BP Systolic 113 BP Diastolic 57 Blood Pressure Source Blood Pressure Position Blood Pressure Location Pulse Ox Oxygen Delivery Method 07/12/22 21:09 07/12/22 21:08 07/12/22 21:08 Temperature Temperature Source Temporal Pulse Rate 103 H Respiratory Rate Blood Pressure Blood Pressure Mean BP Systolic BP Diastolic Blood Pressure Source Blood Pressure Position Blood Pressure Location Pulse Ox 97 Oxygen Delivery Method 07/12/22 21:08 07/12/22 21:08 07/12/22 21:44 Temperature 98.7 F 98.7 F Temperature Source Temporal Pulse Rate 103 H Respiratory Rate 16 Blood Pressure 113/57 L Blood Pressure Mean 75 BP Systolic BP Diastolic Blood Pressure Source Monitor Blood Pressure Position Semi-Fowlers Blood Pressure Location Left Arm Pulse Ox 97 97 Oxygen Delivery Method Room Air Weight Weight: 137.801 kg Body Mass Index (BMI) 53.8 Physical Exam Const alert, oriented x3 and healthy appearing Constitutional Narrative: uncomfortable with contractions HEENT normocephalic and moist oral mucous membranes Head and Scalp: atraumatic Neck full ROM, no lymphadenopathy, supple and thyroid normal General: trachea midline Thyroid: thyroid normal Lymph Lymphatic: no lymphadenopathy noted Chest inspection of chest normal Resp normal respiratory effort Cardio regular rate GI normal to inspection, nondistended, normoactive bowel sounds, soft to palpation and non-tender Inspection: gravid external exam normal Bimanual Exam - Vag & Uterus: uterus non-tender Manual OB Exam: estimated gestational size appropriate, presentation cephalic, dilated, effaced and station Extremity normal to inspection General Extremity: Negative for edema Skin no rashes or lesions noted Neuro deep tendon reflexes 2+ bilaterally Motor Exam: strength 5/5 throughout and clonus absent Psych mental status grossly normal Labs Labs Labs: Blood Type B POSITIVE Antibody Screen NEGATIVE Hct 33.5 % (37-47) L Hgb 10.4 g/dL (12.0-15.0) L Obstetrics US Syphilis Total Ab Non-reactive Rubella IgG Antibody Reactive (Nonreactive) Hep Bs Antigen Non-Reactive (Nonreactive) Chlamydia DNA (KASANDRA) Negative (Negative) Neisseria gonorrhoeae DNA (KASANDRA) Negative (Negative) HIV 1&2 Antibody Non-Reactive (Nonreactive) Rhogam given: No Miscellaneous Test Assessment & Plan (1) SROM (spontaneous rupture of membranes): (2) Anemia affecting : COMMENT: iron and B12- failed oral iron plan IV therapy. Repeat labs at 1st infusion. (3) History of gastric bypass: COMMENT: recommend one week of glucose 4x daily. Will do this week. (4) Obesity affecting : COMMENT: BMI 52 plan weekly BPP after 34 and growth US at 32 and 36 growth US. 32 wk nl growth EFW 2028gms +/- 304gms, 57%, 06/28 BPP nl (5) Supervision of high risk , antepartum: COMMENT: PRR BECCA 07/18/22 [place] PC:[facility]. Fiance:Hakan (6) : QUALIFIERS: Weeks of gestation: 38 weeks Qualified Code(s): Z3A.38 - 38 weeks gestation of COMMENT: GBs neg, NIPT low risk. Anatomy US normal (7) History of : COMMENT: IOL and failed to progress past 4cm. RLTCS scheduled 07/13 @ 7:30am with , anesthesia consult 06/22 (8) Sterilization: COMMENT: bs planned at cs PLAN: Plan procees with RLTCS and BS
[2022-07-12 22:18] LABS: Anisocytosis 2+; Differential Comment SCANNED
--- NOTE | 2022-07-12 22:18 | EX.PCM.OBRPT ---
Assessment & Plan (1) delivery delivered: COMMENT: SROM 38 SM LTCS BS [place] (2) SROM (spontaneous rupture of membranes): (3) Sterilization: COMMENT: bs planned at cs (4) History of : COMMENT: IOL and failed to progress past 4cm. RLTCS scheduled 07/13 @ 7:30am with SM, anesthesia consult 06/22 (5) : QUALIFIERS: Weeks of gestation: 38 weeks Qualified Code(s): Z3A.38 - 38 weeks gestation of COMMENT: GBs neg, NIPT low risk. Anatomy US normal (6) Supervision of high risk , antepartum: COMMENT: PRR BECCA 07/18/22 [place] PC:[facility]. Fiance:Hakan (7) Obesity affecting : COMMENT: BMI 52 plan weekly BPP after 34 and growth US at 32 and 36 growth US. 32 wk nl growth EFW 2028gms +/- 304gms, 57%, 06/28 BPP nl (8) History of gastric bypass: COMMENT: recommend one week of glucose 4x daily. Will do this week. (9) Anemia affecting : COMMENT: iron and B12- failed oral iron plan IV therapy. Repeat labs at 1st infusion. Maternal Data Information BECCA Calculator Estimated Delivery Date Method Current WG Current Estimate 07/18/22 LMP (Uncertain) 39w 2d Final BECCA Source: LMP Gestational age: 39 Details Operative Information Date of Procedure: 07/12/22 Pre-Operative Diagnosis: srom declined tolac desired sterilization Post-Operative Diagnosis: same Classification: LUIS ENRIQUE Procedure Type: low transverse (and bs) brakes inspector #2: Letitia Byrne Type of Anesthesia: Epidural Special Medications: none Drain: Valenzuela to straight drain Fluids Replaced: crystalloid Findings Description of Procedure: The patient was placed in the dorsal supine position with leftward tilt. Patient was prepped and draped in the normal sterile fashion. Pfannenstiel skin incision was made with the scalpel and carried through to the underlying layer of fascia with the scalpel. Fascia was nicked in the midline and the incision extended laterally. The rectus bellies were dissected off superiorly and inferiorly with out complication both sharply and bluntly. The peritoneum was entered digitally. The incision was stretched and scar tissue encountered, taken down with the ligasure device, and then a low transverse uterine incision was made with the scalpel. The 's head was delivered atraumatically followed by the anterior and posterior shoulders without complication the rest of the infant delivered. The cord was clamped and cut and the was handed off to awaiting nurse. The placenta was delivered spontaneously immediately following and was noted to be intact and have a three-vessel cord. The uterus was exteriorized cleared of all clots and debris, and the incision was closed in a single layer closure using #1 Monocryl. The ovaries and fallopian tubes were noted to be within normal limits. Patient had desired sterilization and was counseled preoperatively regarding irreversibility and permanency. Therefore bilateral fallopian tubes were elevated and transected across using a LigaSure device starting proximally to distally without complication the entire fallopian tubes were removed. jd was used for hemostasis over the incision. The uterus was returned to the maternal abdomen and gutters were cleared of all clots and debris. The peritoneum was closed with 3-0 Monocryl in a running fashion. Gloves were changed prior to fascial closure. Fascia was closed with 0 PDS in a running fashion. Subcutaneous tissue was copiously irrigated and the skin was closed with 3-0 Monocryl in a subcuticular fashion. Mepilex dressing was applied without complication. Patient was taken to recovery in stable condition. Amniotic Membrane Rupture Type: Spontaneous Amniotic Fluid Description: Clear Placental Delivery Description: Spontaneous Placenta Disposition: [facility] Cord Vessel Description: 3 Vessels Cord Entanglement: None Delayed Cord Clamping: Yes Complications Risks of Surgery Discussed w/Patient: Bleeding, Infection, Need for Future C-Sections and Injury to surrounding structure(s) including bowel and bladder Complications: none Admit VTE Documentation VTE Present on Admission: No VTE Mechan Device Prophylaxis: SCD's Procedures Urinary/Genital [id number]: [id number] Delivery [facility]
[2022-07-12] MEDS: Sodium Citrate/Citric Acid 30 ML UDC PO (22:19)
[2022-07-12] MEDS: Acetaminophen 500 MG Tablet 1000 MG PO (22:19)
--- NOTE | 2022-07-12 22:20 | DCINST_ITS ---
Discharge Instructions Diet Discharge Diet: No restrictions Activity Discharge Activity: Return to Normal Activity, May Drive (when pain free and off narcotic pain meds), May Shower and May Take a Tub Bath (in 4 weeks) May resume sexual activity in: 6 weeks Weight Bearing Status: Full weight bearing Lifting Restrictions: under 30 lbs for 6 weeks Dressing / Incision Call your doctor if your incision/area has: Continuous Slow Oozing, Sudden Increased Bleeding, Increased Pain/ Swelling, Increased Redness, Foul Smelling Discharge and - Call your doctor if you observe: Fever of 101 or Higher, Using more than 1 pad per hour, Shortness of breath, Chest pain and Uncontrolled pain Suture Line Care: Avoid Pulling/Pushing and Avoid Pinching/Bending Change Dressing in: 1 week (leave open to air after removed) Remove Dressing in: 1 week (if present) Cleanse incision/area with: Soap & Water and Keep Dressing Clean & Dry Follow Up Care Please Follow Up With: Lise Grimes MD When: Call to make an appointment with your doctor for a postop visit in 2 and 6 weeks. Test Results: Test results from this visit will be discussed in further detail at your follow- up appointment, if applicable. Discharge Plan Admission Admit Date/Time: 07/12/22 21:59 Attending Provider: Lise Grimes Primary Care Provider: Yann Dexter Discharge Orders/Prescriptions Prescriptions: New oxycodone-acetaminophen [Percocet] 5-325 mg tablet 1 tab PO Q6H PRN (Reason: pain) 7 Days Qty: 20 0RF naproxen [naproxen] 500 mg tablet 500 mg PO BID PRN PRN (Reason: Pain) Qty: 30 1RF Continued prenat.vits,mirian,[id number] Tablet 1 tab PO DAILY omeprazole 20 MG capsule 20 mg PO BID mecobalamin (vitamin B12) 1,000 mcg tablet,chewable 1,000 mcg PO DAILY Referrals / Follow Up: Yann Dexter MD [Primary Care Provider] - Disposition Disposition (needs filled in before D/C Order can be placed): Home, Self Care
[2022-07-12] MEDS: Clindamycin 900 MG/50 ML BAG 75 MG IV (23:00)
--- NOTE | 2022-07-12 23:05 | FALS_PTH ---
PATIENT: TALIB MG LOC: [facility] U#:[id number] AGE/SX: 31/F ROOM: WP004 RE07/12/[address]: Dr. Lise Grimes MD : 1990 BED: 1 DIS: 07/14/2022 SPEC #: [id number] RECD: 07/13/22 09:34 STATUS: BRANDAN ZURITA #: [id number] SURENDRA: 07/12/22 23:[address]: Lise Grimes DEPT: SURGICAL PATHOLOGY RECD BY: Dorothea Garsia ENTERED: 07/13/22 09:34 SP TYPE: FALL TUBES OTHR DR: Dr. Yann Dexter MD Tissues: Fallopian tube Procedures: Surgery Specimen Level II HEADER OPERATION: Tubal ligation PRE-OP DIAGNOSIS: Sterilization TISSUE SUBMITTED: Fallopian tubes, suture in right tube MICROSCOPIC DIAGNOSIS Bilateral fallopian tubes, salpingectomy: Bilateral fallopian tubes, no pathologic diagnosis. SJ:jurgen 07/14/2022 MICROSCOPIC DESCRIPTION Slides are reviewed. GROSS DESCRIPTION Received in fixative is one container labeled with the patient's name and designated fallopian tubes, right with suture. The specimen consists of two fallopian tubes with an average length of 8 cm and has an average diameter of 0.5 cm. Both fallopian tubes have normal fimbriated ends. No mass lesions are identified. Station Operator sections are submitted in two cassettes as follows: 1 - right fallopian tube, 2??left fallopian tube. / AM:jurgen 07/13/2022 TC:4 CPT: 71083 x2
[2022-07-13] VITALS (16 sets, daily range): BP systolic 95–132; BP diastolic 53–77; PULSE 73–97; RESP 13–22; TEMP 35.7–36.6; O2SAT 92–99
[2022-07-13] MEDS: Oxytocin 15 Units/NS 250ml 15 UNITS/250 ML IV.SOLN 83 UNITS IV
[2022-07-13] MEDS: Methylergonovine 0.2 MG/ML Ampul IM (00:47)
[2022-07-13] MEDS: 0.9% Saline Lock 10 ML Syringe IV ×5 (00:48→19:02)
[2022-07-13] MEDS: Ketorolac 30 MG/ML Syringe IV ×4 (00:48→19:02)
[2022-07-13] MEDS: BENZOCAINE/MENTHOL 1 LOZENGE MUCOUS MEM ×6 (00:49→22:34)
[2022-07-13] MEDS: Lactated Ringers 1,000 ML 100 ML IV (00:52)
[2022-07-13] MEDS: HYDROmorphone 1 MG/ML Syringe IV ×2 (01:00→04:27)
[2022-07-13 02:47] LABS: Pathology Specimen OB SEE PATHOLOGY REPORT
[2022-07-13] MEDS: Acetaminophen 500 MG Tablet 1000 MG PO ×4 (04:09→23:01)
[2022-07-13] MEDS: guaiFENesin Dm 10 ML UDC PO ×3 (04:09→23:01)
[2022-07-13 05:55] LABS: Hematocrit 34.7 % (37-47); Hemoglobin 10.4 g/dL (12.0-15.0); Mean Corpuscular Volume 80.1 fL (81-99); Mean Platelet Vol. 9.6 fl (6.2-12.0); POSITIVE MORPHOLOGY YES; Platelet Count 326 K/mm3 (150-450); RBC Distribution Width CV 23.7 % (11.6-14.6); RBC Distribution Width SD 67.7 fl (35.1-43.9); Red Blood Count 4.33 M/mm3 (4.2-5.4); White Blood Count 11.4 K/mm3 (4.4-11.0)
[2022-07-13 05:56] LABS: Scan Indicated on CBC? Y/N YES- FLAGS NOTED
[2022-07-13 07:04] LABS: Differential Comment SCANNED
--- NOTE | 2022-07-13 08:29 | PCM.PN.OB ---
Subjective Subjective Patient doing well without complaints. Tolerating PO. Ambulating and voiding without difficulty. feeding well. Denies chest pain, shortness of breath, calf pain/swelling, fevers, chills, lightheadedness. Objective Data Objective Data Vital Signs: Vital Signs Temp Pulse Resp BP Pulse Ox O2 Del Method 96.3 F L 78 16 102/67 95 Room Air 07/13/22 07:55 07/13/22 07:55 07/13/22 07:55 07/13/22 07:55 07/13/22 07:55 07/13/22 07:55 Oxygen Delivery Method Room Air Weight: 137.801 kg Body Mass Index (BMI) 53.8 Intake & Output: Intake and Output for Last 24 Hours 07/11/22 07/12/22 07/13/22 23:59 23:59 23:59 Intake Total 1661.5 / 1661.5 Output Total 475 / 475 Balance 1186.5 / 1186.5 Lab / Micro Data Result Diagrams: 07/13/22 05:40 Labs: Laboratory Results - last 24 hr 07/12/22 21:15: Vag Amniotic Fld Detect POSITIVE H 07/12/22 21:23: WBC 8.1, RBC 4.21, Hgb 10.4 L, Hct 33.5 L, MCV 79.6 L, MCH 24.7 L, MCHC 31.0 L, RDW Std Deviation 68.4 H, RDW Coeff of Robyn 23.9 H, Plt Count 388, MPV 9.8, Immature Gran % (Auto) 0.400, Neut % (Auto) 61.4, Lymph % (Auto) 29.8, [place] % (Auto) 7.3, Eos % (Auto) 0.7, Baso % (Auto) 0.4, Absolute Neuts (auto) 5.0, Absolute Lymphs (auto) 2.42, Nucleated RBC % 0, Differential Comment SCANNED, Anisocytosis 2+ 07/12/22 21:23: Blood Type B POSITIVE, Antibody Screen NEGATIVE 07/13/22 05:40: WBC 11.4 H, RBC 4.33, Hgb 10.4 L, Hct 34.7 L, MCV 80.1 L, MCH 24.0 L, MCHC 30.0 L, RDW Std Deviation 67.7 H, RDW Coeff of Robyn 23.7 H, Plt Count 326, MPV 9.6, Differential Comment SCANNED ROS Constitutional Constitutional: Reports systems reviewed and no addt'l complaints, except as documented Cardiovascular Cardiovascular: Reports systems reviewed and no addt'l complaints, except as documented Respiratory/Chest Respiratory/Chest: Reports systems reviewed and no addt'l complaints, except as documented Gastrointestinal Gastrointestinal: Reports systems reviewed and no addt'l complaints, except as documented Physical Exam Const alert, oriented x3 and no apparent distress HEENT Head and Scalp: atraumatic Resp normal respiratory effort GI soft to palpation and non-tender Inspection: incision intact, healing well and drainage (none) Bimanual Exam - Vag & Uterus: uterus non-tender Uterus Palpation: uterus fundus firm (below Umbilicus) Assessment & Plan (1) delivery delivered: COMMENT: SROM 38 SM LTCS BS [place] PLAN: Plan s/p LTCS PPD # 1 1. routine post care 2. bottle feeding- support given 3. rh positive 4. rubella immune
[2022-07-13] MEDS: Enoxaparin 40 MG/0.4 ML Syringe SC ×2 (10:36→21:31)
[2022-07-13] MEDS: Benzonatate 100 MG Capsule PO ×2 (10:37→21:36)
[2022-07-13] MEDS: Senna/Docusate Sodium 1 Tablet PO (10:37)
[2022-07-13] MEDS: Pantoprazole Sodium 20 MG Tablet PO ×2 (10:37→21:33)
[2022-07-13] MEDS: oxyCODONE 5 MG Tablet PO (22:33)
[2022-07-14 00:05] VITALS: BP 102/53; PULSE 89; RESP 16; TEMP 35.9; O2SAT 97
[2022-07-14] MEDS: Ketorolac 30 MG/ML Syringe IV ×3 (01:59→14:07)
[2022-07-14] MEDS: 0.9% Saline Lock 10 ML Syringe IV ×3 (01:59→14:07)
[2022-07-14] MEDS: guaiFENesin Dm 10 ML UDC PO ×2 (04:13→08:14)
[2022-07-14 04:14] VITALS: BP 114/65; PULSE 85; RESP 16; TEMP 36.1; O2SAT 97
[2022-07-14] MEDS: Acetaminophen 500 MG Tablet 1000 MG PO ×2 (05:33→11:34)
[2022-07-14 08:06] VITALS: BP 113/72; PULSE 88; RESP 18; TEMP 36.2; O2SAT 97
--- NOTE | 2022-07-14 08:29 | PCM.PN.OB ---
Subjective Subjective Patient doing well without complaints. Tolerating PO. Ambulating and voiding without difficulty. Feeding well. Denies chest pain, shortness of breath, calf pain/swelling, fevers, chills, lightheadedness. Objective Data Objective Data Vital Signs: Vital Signs Temp Pulse Resp BP Pulse Ox O2 Del Method 97.1 F L 88 18 113/72 97 Room Air 07/14/22 08:06 07/14/22 08:06 07/14/22 08:06 07/14/22 08:06 07/14/22 08:06 07/14/22 08:06 Oxygen Delivery Method Room Air Weight: 303 lb 12.8 oz Body Mass Index (BMI) 53.8 Intake & Output: Intake and Output for Last 24 Hours 07/12/22 07/13/22 07/14/22 23:59 23:59 23:59 Intake Total 2661.5 / 2661.5 Output Total 1725 / 1725 Balance 936.5 / 936.5 Lab / Micro Data Result Diagrams: 07/13/22 05:40 Physical Exam Const alert, oriented x3 and no apparent distress Resp normal respiratory effort, normal air movement and no retractions Resp Narrative: +cough GI soft to palpation GI Narrative: fundus firm 1 below U Extremity normal to inspection and full ROM Skin Skin Narrative: dressing clean dry and intact Assessment & Plan (1) delivery delivered: COMMENT: SROM 38 SM LTCS BS [place] (2) History of gastric bypass: COMMENT: recommend one week of glucose 4x daily. Will do this week. PLAN: motrin/nsaids contraindicated PLAN: Plan s/p LTCS PPD # 2 1. routine post care 2. bottle- support given 3. rh positive 4. rubella immune 5. d/c home today
[2022-07-14] MEDS: Pantoprazole Sodium 20 MG Tablet PO (09:52)
[2022-07-14] MEDS: Senna/Docusate Sodium 1 Tablet PO (09:52)
[2022-07-14] MEDS: Enoxaparin 40 MG/0.4 ML Syringe SC (09:52)
[2022-07-14 13:18] VITALS: BP 94/57; PULSE 91; RESP 17; TEMP 36.3
--- NOTE | 2022-07-14 15:08 | PCM.CONS.B ---
Consult Date of Consult: 07/14/22 Reason for Consult incision check. redness around adhesion of dressing. dressing taken down, no redness, draining or warmth to incision steristrips placed on incision for reinforcement Assessment & Plan Assessment/Plan (1) delivery delivered: PLAN: Plan stable for d/c home incision check in 1-2 weeks in office
--- NOTE | 2022-07-14 15:37 | NURSING ---
after second assessment of reddened skin around mepilex dressing this RN requested second RN, Tony, to assess. second assessment appears to be unchanged from prior assessment noted by this RN. discussed with pt concern for redness and wanting to consult LCollinsCNM to assess area of skin above dressing prior to discharge. @ 1954 [facility] office called and message left for TaylorM to come to unit for evaluation of reddened skin above mepilex dressing prior to pt being discharged to home; pt denies itching, or feeling irritation around area.
== END 2022-07-14 15:10 | disposition home or self-care (01) | DRG 785 ==
LOC: WPOUT 22:00 → WP 22:00
PROVIDERS: Admitting Provider Obstetrics & Gynecology; PCP Family Medicine; Visit Provider Obstetrics & Gynecology
DX: O34.219 Maternal care for unspecified type scar from previous cesarean delivery (principal); O99.02 Anemia complicating childbirth; Z37.0 Single live birth; Z30.2 Encounter for sterilization; Z3A.39 39 weeks gestation of pregnancy; Z98.84 Bariatric surgery status; O99.214 Obesity complicating childbirth
CPT/HCPCS: 59025; 59050; 84112; 85025; 85027; 86850; 86900; 86901; 88302; 99221; 99252; J7120; A4216; G0378; G0463; J2405

== ENCOUNTER → 2022-07-27 | Outpatient (CLI) | payer BC, MEDICAID, SELFPAY ==
[2022-07-27 14:46] LABS: Hemoglobin 10.9 g/dL (12.0-15.0); Mean Corp Hgb Conc 30.3 g/dL (32-36); Mean Corpuscular Hgb 23.7 pg (27.0-32.0); Mean Corpuscular Volume 78.3 fL (81-99); Mean Platelet Vol. 10.1 fl (6.2-12.0); POSITIVE MORPHOLOGY YES; Platelet Count 460 K/mm3 (150-450); RBC Distribution Width CV 23.7 % (11.6-14.6); RBC Distribution Width SD 66.4 fl (35.1-43.9)
[2022-07-27 15:09] LABS: Differential Indicated MANUAL DIFF
[2022-07-27 15:16] LABS: Neutrophil-Band 18 % (0-5); Neutrophil-Segmented 59 % (47-70); Total Cells Counted 100 (MANUAL DIFF)
[2022-07-27 15:18] LABS: Anisocytosis 1+; Basophil 1 % (0-1); Lymphocyte 10 % (19-41); Metamyelocyte 3 % (0-1); Monocyte 1 % (0-10); Myelocyte 3 % (0-0); Other WBC Type 5 %
[2022-07-27 15:19] LABS: Toxic Granulation 1+
[2022-07-27 15:20] LABS: Absolute Neutrophil Count 8.3 X10^3/uL (2.0-7.7)
[2022-07-27 15:21] LABS: Absolute Lymphocyte Count 0.99 X10^3/uL (0.83-4.51); Lymphocyte # 0.99 X10^3/ul (0.83-4.51)
[2022-07-27 15:22] LABS: Platelet Estimate ADEQUATE (ADEQ); Red Cell Morphology N CHROM NORMAL (NORM C&C)
[2022-07-28 10:05] LABS: Pathologist Review Reviewed
== END | disposition home or self-care (01) ==
LOC: PAVLAB 14:28
PROVIDERS: PCP Family Medicine; Referring Provider Obstetrics & Gynecology; Visit Provider Obstetrics & Gynecology
DX: R42 Dizziness and giddiness (principal)
CPT/HCPCS: 36415; 85025

== ENCOUNTER 2022-07-28 20:29 | Inpatient (IN) | payer BC, MEDICAID, SELFPAY ==
--- NOTE | 2022-07-28 20:09 | HP.PCM.OB_ITS ---
HPI - General General Date of Admission: 07/28/22 HPI Narrative TALIB MG, is a 32 Fy/o who presents to [facility] from [facility] due to acute renal failure and possible wound infection. She is status post section with BTL on 07/13/[address] Grimes. Yesterday she presented to the office with abdominal pain and was found to be afebrile and without signs of infection. This am she woke up with redness and bruising around her umbilicus. She presented to [facility] ER and was found to have an elevated Cr level and in acute renal failure. CT was ordered and shows some subcutaneous air. She did not have a white count or fever but there was a suspicion for wound infection based on the patient's history of night sweats per the provider at [facility]. The patient is currently admitted to PCU and laying in bed complaining of pain. She ate only a bag of crackers today but does not have an appetite. She denies current fever, chills, nausea, vomiting or diarrhea and reports that she was given 1 dose of vancomycin and one dose of another antibiotic around 12:30 today. She complains of pain on her left side being the worse and radiating to her lower abdomen. She denies flank pain., PFSH PFS Medical History Anemia Gastric polyp GERD (gastroesophageal reflux disease) Home Medications prenat.vits,mirian,kbp-[id number] 1 tab PO DAILY Check with primary doctor 12/08/21 [History Last Taken 07/12/22] Allergy/AdvReac Type Severity Reaction Status Date / Time amoxicillin [From Amoxil] Allergy Intermediate hives Verified 07/27/22 14:06 cefdinir Allergy Hives Verified 07/27/22 14:06 adhesive tape AdvReac Mild Rash Verified 07/27/22 14:06 Family History Father Hypertension Cancer prostate Aortic aneurysm DVT (deep venous thrombosis) Mother Hypertension Grandmother Cancer cervical Surgical History S/P gastric surgery Status post hip surgery Social History (Updated 07/27/22 @ 14:13 by Harriet Hobbs) adopted: No household members: significant other number of children: 2 current occupational status: employed current occupation: [employer] pets and animals: No Smoking Status: Never smoker alcohol intake: never substance use type: does not use caffeine: No do you feel safe at home: Yes additional social history: Shweta Sethi History 2 2 Elective abortions Hx Para 2 Spontaneous abortions Hx # Term Pregnancies Ectopic pregnancies Hx # Pregnancies Multiple births # of living children 2 Past Pregnancies Del. Date Name GA/Weeks Outcome Route Bth Weight Infant Gen Labor Lgth Anesthesia Del Locatn Provider FOB Unknown 07/16/20 Vigil 40 live - full term 7# 5oz Male 48 hr epidural Jey Weeman [place] 07/12/22 Candelario 38 live - full term 9lbs 2oz Male spinal [facility] [place] Delivery Date: Last Updated by: Mulu Olmos SCHOOL VOCATIONAL EDUCATOR, SCHOOL VOCATIONAL EDUCATOR-C IOL, FTP 4cm. Delivery Date: 07/12/22 Last Updated by: Harriet Hobbs RLTCS ROS Constitutional Constitutional: Reports as per HPI, night sweats and poor appetite; Denies body ache(s), change in weight or chills ENT HEENT: Denies dizziness Cardiovascular Cardiovascular: Denies chest pain, dizziness, edema, lightheadedness or nausea Respiratory/Chest Respiratory/Chest: Denies change in mental status, chest tightness or cough Gastrointestinal Gastrointestinal: Reports constipation; Denies cramping, diarrhea or vomiting Genitourinary Genitourinary: Denies dysuria, flank pain or genital pain Musculoskeletal Musculoskeletal: Denies muscle weakness Psychiatric Psychiatric: Denies confusion, depression, hopelessness, irritability or memory loss Physical Exam Const alert, oriented x3 and no apparent distress General Appearance: cooperative and comfortable Orientation / Consciousness: awake, oriented to person, oriented to place and oriented to time HEENT normocephalic Face and Sinus: normal facial exam Lymph Lymphatic: no lymphadenopathy noted Resp normal respiratory effort and normal air movement Effort and Inspection: symmetric chest movement Cardio regular rate and regular rhythm GI GI Narrative: pannus with ecchymosis and large area or erythema extending from her right/mid abdomen and extending to her left side. marker used to outline the area. There is a 5 mm opening in the incision that is draining a foul smelling purulent brown material. This area was cultured Extremity normal to inspection Skin Skin Narrative: see GI narrative Neuro oriented x3 and CN's II-XII intact bilaterally Psych Appearance: grossly normal and appropriate Activity / Motor Behavior: appropriate eye contact Labs Labs Labs: Blood Type B POSITIVE Antibody Screen NEGATIVE Hct 36.0 % (37-47) L Hgb 10.9 g/dL (12.0-15.0) L Obstetrics US Syphilis Total Ab Non-reactive Rubella IgG Antibody Reactive (Nonreactive) Hep Bs Antigen Non-Reactive (Nonreactive) Chlamydia DNA (KASANDRA) Negative (Negative) Neisseria gonorrhoeae DNA (KASANDRA) Negative (Negative) HIV 1&2 Antibody Non-Reactive (Nonreactive) Rhogam given: No Miscellaneous Test Assessment & Plan (1) Wound infection following section, : (2) Cellulitis of skin: (3) Acute renal failure: PLAN: Plan admit to PCU with consult to Medicine for acute renal failure IV fluids vanc + meropenem for possible mrsa culture sent normal diet activity as tolerated rpt cbc and bmp in am tele monitor per Medicine team. pain medications ordered heparin for DVT prophylaxis. Charges/Coding Addendum Addendum: time to admit was 60 min Visit Charges Inpatient E&M: 96631 Init Hosp L3
--- NOTE | 2022-07-28 20:10 | EX.EMERGENCY ---
EMERGENCY DOCUMENTATION INITIATED: Date: 07/07/22 Time: 0900 emergency documentation in effect
[2022-07-28 20:19] VITALS: BP 101/72; PULSE 101; RESP 18; TEMP 36.3; O2SAT 99
[2022-07-28] MEDS: Morphine 2 MG/ML Syringe IV ×2 (20:25→22:46)
--- NOTE | 2022-07-28 20:49 | PN.HOSP_ITS ---
Subjective Subjective Patient was seen and examined today at the request of RADIATION THERAPY TECHNOLOGIST-she was a direct admission from [place], [place] emergency room by Dr. Camp due to abdominal wall cellulitis where a have been performed approximately 2 weeks ago (07/13/2022) and also due to acute kidney injury with elevated creatinine noted on the patient's labs today in the emergency room in [place]. Patient had an area of redness and tenderness over the area where her incision is located over her left lower abdomen, on examination today by Dr. Camp after her admission, she was able to express purulent drainage from the area and cultures were obtained as well as a PCR. Patient had been given meropenem and vancomycin at the outside emergency room in [place], a CT of the abdomen was obtained due to elevated creatinine and there was no evidence of obstruction noted on the CAT scan but there was subcutaneous air noted in the wall of the abdomen on the CAT scan. Patient's white blood cell count at the emergency room was 7.8, she had a bandemia with 18% bands, patient's creatinine was 3.09, and BUN was 65. Patient was given 2 L of fluid in the emergency room in addition to having antibiotics administered. I was contacted and agreed to accept the patient but Dr. Camp was kind enough to admit the patient to her service after verifying that she indeed had a wound infection. I discussed the case with her and I went over additional orders, the hospitalist service will follow with Dr. Camp while the patient is in the hospital. Objective Data Objective Data Vital Signs: Vital Signs Temp Pulse Resp BP Pulse Ox O2 Del Method 97.4 F L 101 H 18 101/72 99 Room Air 07/28/22 20:19 07/28/22 20:19 07/28/22 20:19 07/28/22 20:19 07/28/22 20:19 07/28/22 20:19 Oxygen Delivery Method Room Air Physical Exam Const alert, oriented x3 and no apparent distress Constitutional Narrative: Patient appears her stated age, she is morbidly obese, patient appears nontoxic General Appearance: cooperative, well kempt and well developed Orientation / Consciousness: awake, oriented to person, oriented to place and oriented to time HEENT normocephalic, head/scalp atraumatic and moist oral mucous membranes Eyes PERRL, EOMs intact bilaterally and conjunctivae normal Neck supple and no JVD General: trachea midline Resp normal respiratory effort, no retractions, no use of accessory muscles and clear to auscultation bilaterally Auscultation: Negative for rales, rhonchi or wheezes Cardio regular rate, regular rhythm, S1 normal heart sound, S2 normal heart sound, no murmurs, no rub and no gallops GI GI Narrative: Patient had redness and edema over her lower abdominal wall area, she also had tenderness in this area especially over the left lower abdominal wall area. This examiner did not try to express any purulent discharge from the area as cultures were already obtained by the attending physician. Bowel sounds were present Extremity no clubbing, cyanosis or edema Skin no rashes or lesions noted General Skin Exam: no breakdown Neuro oriented x3, CN's II-XII intact bilaterally, moves all extremities, no focal m otor deficits and no sensory deficits noted Sensorium / Orientation: awake, alert, oriented to person, oriented to place and oriented to time Speech: speech normal Psych affect normal Assessment & Plan Assessment/Plan (1) Acute renal failure: PLAN: Plan 1. Acute kidney injury-again patient was admitted under the the RADIATION THERAPY TECHNOLOGIST service, she will be given IV normal saline at 150 cc an hour, labs will be repeated tomorrow and followed while she is in the hospital. #2 lower abdominal wall surgical incisional cellulitis-cultures were obtained by RADIATION THERAPY TECHNOLOGIST today, PCR was also obtained, patient will be maintained on vancomycin and meropenem Further note: Patient is not nursing her Total clinical time spent by myself addressing the patient's medical problems, reviewing the data, and collaborating with patient's care team: 35 minutes Charges/Coding Visit Charges Inpatient E&M: 76096 Subs Hosp L2
[2022-07-28] MEDS: 0.9% Normal Saline 1,000 ML 150 ML IV (20:53)
[2022-07-28 22:00] LABS: M R Staph aureus DNA By PCR Negative (Negative); Probe Check PASS; Specimen Processing Control PASS; Staph aureus DNA By PCR NEGATIVE (Negative)
[2022-07-28 22:44] VITALS: BP 92/62; PULSE 106; RESP 18; TEMP 36.6; O2SAT 99
[2022-07-28 23:20] LABS: Anion Gap 13 (5-15); BUN 71 mg/dL (7-18); BUN/Creat Ratio 30.1 RATIO (10-20); Calcium,Total 8.5 mg/dL (8.5-10.1); Chloride 107 mmol/L (98-107); Creatinine, Serum 2.36 mg/dL (0.55-1.02); EST Glomerular Filtration Rate 25 mL/min (>60); Est Glom Filt Rate - Afr Amer 31 mL/min (>60); Glucose 113 mg/dL (74-106); Potassium 3.3 mmol/L (3.5-5.1); Sodium Level 135 mmol/L (136-145)
[2022-07-28 23:40] VITALS: BMI 46.9
[2022-07-29] VITALS (9 sets, daily range): BP systolic 80–103; BP diastolic 51–73; PULSE 98–118; RESP 18; TEMP 36.6–37.1; O2SAT 98–100
--- NOTE | 2022-07-29 00:12 | PCM.RX.CS ---
Consult Pharmacy has been consulted to manage selected antiobiotic: Vancomycin Type of Consult: New start Suspected Infection: Skin/Soft tissue Prior Doses of Antibiotics Received/Current Regimen: Medications Vancomycin HCl 1,500 mg/ (Sodium Chloride) 530 mls @ 250 mls/hr IV Q24H [facility] Labs: Sodium 135 mmol/L (136-145) L 07/28/22 22:39 Potassium 3.3 mmol/L (3.5-5.1) L 07/28/22 22:39 Chloride 107 mmol/L (98-107) 07/28/22 22:39 Carbon Dioxide 15.0 mmol/L (21.0-32.0) L 07/28/22 22:39 Anion Gap 13 (5-15) 07/28/22 22:39 BUN 71 mg/dL (7-18) H 07/28/22 22:39 Creatinine 2.36 mg/dL (0.55-1.02) H 07/28/22 22:39 Est GFR (MDRD) Af Amer 31 mL/min (>60) L 07/28/22 22:39 Est GFR (MDRD) Non-Af 25 mL/min (>60) L 07/28/22 22:39 BUN/Creatinine Ratio 30.1 RATIO (10-20) H 07/28/22 22:39 Glucose 113 mg/dL (74-106) H 07/28/22 22:39 Weight used for dosin.2 kg Estimated Creatinine Clearance: 42.5 Goal Trough: 10-15 mcg/mL Pharmacy Plan for Drug Dosing: Initial vancomycin dose of 2g was given 07/28/22 @1549 at other facility. Dosing will continue at 1500mg q24h, and a trough level will be drawn prior to 3rd total dose. Pharmacy Service will continue to monitor and adjust dosing as required. Follow-Up Labs: Trough Vancomycin Labs to be done on [date and time ordered]: 07/30/22 @1530
[2022-07-29] MEDS: 0.9% Normal Saline 1,000 ML 150 ML IV ×3 (03:05→16:28)
[2022-07-29] MEDS: Morphine 2 MG/ML Syringe IV (03:18)
[2022-07-29 04:44] LABS: Absolute Lymphocyte Count 0.61 X10^3/uL (0.83-4.51); Basophil# 0.03 X10^3/uL; Basophil% 0.4 % (0-1); Eosinophil# 0.23 X10^3/uL; Eosinophils% 3.2 % (0-5); Hemoglobin 9.5 g/dL (12.0-15.0); Lymphocyte # 0.61 X10^3/ul (0.83-4.51); Lymphocyte % 8.4 % (19-41); Mean Corp Hgb Conc 29.7 g/dL (32-36); Mean Corpuscular Hgb 23.2 pg (27.0-32.0); Monocyte# 0.27 X10^3/uL; Monocyte% 3.7 % (0-10); NRBC Flagged by Analyzer 0 % (0-5); Neutrophil # 5.97 X10^3/uL (2.7-7.7); Neutrophil % 82.2 % (47-70); POSITIVE MORPHOLOGY YES; Platelet Count 404 K/mm3 (150-450); RBC Distribution Width CV 23.9 % (11.6-14.6); RBC Distribution Width SD 67.7 fl (35.1-43.9); White Blood Count 7.3 K/mm3 (4.4-11.0)
[2022-07-29 04:48] LABS: Differential Indicated SCAN CRITERIA MET
[2022-07-29 05:03] LABS: Differential Comment SCANNED; Toxic Granulation RARE
[2022-07-29 05:04] LABS: Anion Gap 14 (5-15); BUN 72 mg/dL (7-18); BUN/Creat Ratio 34.8 RATIO (10-20); Burr Cells 1+; Calcium,Total 8.3 mg/dL (8.5-10.1); Chloride 108 mmol/L (98-107); Creatinine, Serum 2.07 mg/dL (0.55-1.02); EST Glomerular Filtration Rate 29 mL/min (>60); Est Glom Filt Rate - Afr Amer 36 mL/min (>60); Estimated Creatinine Clearance 31.98 ml/min; Glucose 82 mg/dL (74-106); Potassium 3.4 mmol/L (3.5-5.1); Sodium Level 138 mmol/L (136-145); Vacuolated Cells RARE
[2022-07-29 05:05] LABS: Anisocytosis 1+
[2022-07-29] MEDS: Heparin Injection (Vial) 5,000 UNIT/ML VIAL 5000 UNIT SC ×3 (05:11→22:09)
--- NOTE | 2022-07-29 07:38 | PCM.PN.OB ---
Subjective Subjective patient afebrile no chest pain or SOB at rest, pain not well controlled- will give additional IV morphine now. erythema stable with wound draining still. Objective Data Objective Data Vital Signs: Vital Signs Temp Pulse Resp BP Pulse Ox O2 Del Method 98.0 F 104 H 18 100/64 98 Room Air 07/29/22 06:45 07/29/22 06:45 07/29/22 06:45 07/29/22 06:45 07/29/22 06:45 07/29/22 06:45 Oxygen Delivery Method Room Air Weight: 120.202 kg Body Mass Index (BMI) 46.9 Intake & Output: Intake and Output for Last 24 Hours 07/27/22 07/28/22 07/29/22 23:59 23:59 23:59 Intake Total 1050 / 1050 Balance 1050 / 1050 Lab / Micro Data Result Diagrams: 07/29/22 04:02 07/29/22 04:02 Labs: Laboratory Results - last 24 hr 07/28/22 19:52: S.aureus Protein A PCR NEGATIVE, MRSA (PCR) Negative 07/28/22 22:39: Sodium 135 L, Potassium 3.3 L, Chloride 107, Carbon Dioxide 15.0 L, Anion Gap 13, BUN 71 H, Creatinine 2.36 H, Est GFR (MDRD) Af Amer 31 L, Est GFR (MDRD) Non-Af 25 L, BUN/Creatinine Ratio 30.1 H, Glucose 113 H, Calcium 8.5 07/29/22 04:02: WBC 7.3, RBC 4.10 L, Hgb 9.5 L, Hct 32.0 L, MCV 78.0 L, MCH 23.2 L, MCHC 29.7 L, RDW Std Deviation 67.7 H, RDW Coeff of Robyn 23.9 H, Plt Count 404, MPV 11.0, Immature Gran % (Auto) 2.100 H, Neut % (Auto) 82.2 H, Lymph % (Auto) 8.4 L, [place] % (Auto) 3.7, Eos % (Auto) 3.2, Baso % (Auto) 0.4, Absolute Neuts (auto) 6.0, Absolute Lymphs (auto) 0.61 L, Nucleated RBC % 0, Differential Comment SCANNED, Toxic Granulation RARE, Toxic Vacuolation RARE, Anisocytosis 1+, [place] Cells 1+ 01/19/23 04:02: Sodium 138, Potassium 3.4 L, Chloride 108 H, Carbon Dioxide 16.0 L, Anion Gap 14, BUN 72 H, Creatinine 2.07 H, Estim Creat Clear Calc 31.98, Est GFR (MDRD) Af Amer 36 L, Est GFR (MDRD) Non-Af 29 L, BUN/Creatinine Ratio 34.8 H, Glucose 82, Calcium 8.3 L ROS Constitutional Constitutional: Reports as per HPI, night sweats and poor appetite; Denies body ache(s), change in weight or chills ENT HEENT: Denies dizziness Respiratory/Chest Respiratory/Chest: Denies chest tightness or cough Genitourinary Genitourinary: Denies dysuria, flank pain or genital pain Musculoskeletal Musculoskeletal: Denies muscle weakness Physical Exam Const alert and no apparent distress Resp normal respiratory effort and normal air movement GI GI Narrative: pannus with ecchymosis and large area or erythema extending from her right/mid abdomen and extending to her left side. marker used to outline the area. There is a 5 mm opening in the incision that is draining a foul smelling purulent brown material. This area was cultured Extremity normal to inspection Skin Skin Narrative: see GI narrative Psych Appearance: grossly normal and appropriate Assessment & Plan (1) Cellulitis of skin: COMMENT: IV Vanc and meropenum. medicine consulted and following. right incisional drainage, wound center consulted. await culture results. s/p ct scan. (2) Acute renal failure: COMMENT: appreciate medicine following for comanagement. suspect due to dehydration and infection. continue IVFs. (3) Wound infection following section, : COMMENT: see cellulitis a/p. (4) History of gastric bypass: COMMENT: recommend one week of glucose 4x daily. Will do this week. PLAN: Plan patient is 2 weeks post with wound infection and cellulitis, accompanying acute renal failure - appreciate medicine consultation for comanagement - heparain for dvt prophylaxis - h/o gastric sleeve surgery - wound center consult- await evaluation today and recommendations. wound draining and no abscess collection requiring surgical drainage seen on CT - IV ABx- await final cultures and clinical response to guide oral antibiotic choice see a/p comments for additional plan information
[2022-07-29] MEDS: Docusate Sodium 100 MG Capsule PO (07:58)
[2022-07-29] MEDS: Polyethylene Glycol 3350 17 GM PACKET PO (07:58)
[2022-07-29] MEDS: Morphine 2 MG/ML Syringe 4 MG IV (07:59)
--- NOTE | 2022-07-29 11:18 | WOUNDNOTE ---
skin photo: left lower abdomen
--- NOTE | 2022-07-29 11:19 | WOUNDNOTE ---
wound photo: right lower abdomen
--- NOTE | 2022-07-29 11:42 | PCM.PN.HOSP ---
Subjective Subjective Feels little bit better today, no issues overnight. She does have an area draining from her Objective Data Objective Data Vital Signs: Vital Signs Temp Pulse Resp BP Pulse Ox O2 Del Method 97.9 F 99 18 89/60 L 98 Room Air 07/29/22 07:53 07/29/22 07:53 07/29/22 07:53 07/29/22 07:53 07/29/22 07:53 07/29/22 07:53 Oxygen Delivery Method Room Air Weight: 265 lb Body Mass Index (BMI) 46.9 Intake & Output: Intake and Output for Last 24 Hours 07/28/22 07/29/22 07/30/22 03:59 03:59 03:59 Intake Total 930 / 930 1120 / 1120 Balance 930 / 930 1120 / 1120 Lab / Micro Data Result Diagrams: 07/29/22 04:02 07/29/22 04:02 Labs: Laboratory Results - last 24 hr 07/28/22 19:52: S.aureus Protein A PCR NEGATIVE, MRSA (PCR) Negative 07/28/22 22:39: Sodium 135 L, Potassium 3.3 L, Chloride 107, Carbon Dioxide 15.0 L, Anion Gap 13, BUN 71 H, Creatinine 2.36 H, Est GFR (MDRD) Af Amer 31 L, Est GFR (MDRD) Non-Af 25 L, BUN/Creatinine Ratio 30.1 H, Glucose 113 H, Calcium 8.5 07/29/22 04:02: WBC 7.3, RBC 4.10 L, Hgb 9.5 L, Hct 32.0 L, MCV 78.0 L, MCH 23.2 L, MCHC 29.7 L, RDW Std Deviation 67.7 H, RDW Coeff of Robyn 23.9 H, Plt Count 404, MPV 11.0, Immature Gran % (Auto) 2.100 H, Neut % (Auto) 82.2 H, Lymph % (Auto) 8.4 L, [place] % (Auto) 3.7, Eos % (Auto) 3.2, Baso % (Auto) 0.4, Absolute Neuts (auto) 6.0, Absolute Lymphs (auto) 0.61 L, Nucleated RBC % 0, Differential Comment SCANNED, Toxic Granulation RARE, Toxic Vacuolation RARE, Anisocytosis 1+, [place] Cells 1+ 07/29/22 04:02: Sodium 138, Potassium 3.4 L, Chloride 108 H, Carbon Dioxide 16.0 L, Anion Gap 14, BUN 72 H, Creatinine 2.07 H, Estim Creat Clear Calc 31.98, Est GFR (MDRD) Af Amer 36 L, Est GFR (MDRD) Non-Af 29 L, BUN/Creatinine Ratio 34.8 H, Glucose 82, Calcium 8.3 L Micro: Microbiology 07/28/22 19:52 Wound - Abdominal Wound Culture - Preliminary GNR 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 Dressing in place Musculoskeletal: No Tenderness to Palpation of Joints or Extremities Neurological: Cranial nerves II-XII grossly intact, Motor Exam 5/5 strength throughout, Sensory exam intact to light touch and pain Psych/Mental Status: Normal Affect, Appropriate Assessment & Plan Assessment/Plan (1) Acute renal failure: PLAN: Plan 1. Postoperative wound infection from a on 07/12/2022/ANGEL ? She states that she has been drinking well but that her urine has been concentrated for the last several weeks. ? She had been struggling with constipation so had stopped her narcotics however when the pain became difficult to manage she did take around 1200 mg of ibuprofen prior to admission ? Her renal function is improving nicely, would recommend continuing with IV fluids ? Wound cultures are pending, preliminarily gram-negative jerald we will continue with broad-spectrum antibiotics until speciation and sensitivities are obtained, MRSA PCR is negative ? CT scan from OSH was negative for any large abscess or extension into the abdominal cavity DVT: Heparin Charges/Coding Visit Charges Inpatient E&M: 39078 Subs Hosp L2
--- NOTE | 2022-07-29 12:27 | CASEMGMT ---
RN?CM?GERONTOLOGY AIDE?CM?spoke w /patient for initial transition planning/care coordination?assessment.?RN?CM?introduced self and role at [facility].? Pt voices understanding and consents to?assessment?at this time.? Pt is A/O at this time and answers all questions appropriately.?? Care providers, pharmacy, and demographics verified/updated at this time.? PCP:?Dr Dexter Specialists:?Dr Murray-BUSINESS DEVELOPMENT PROFESSIONAL. Bariatric Surgical team @ [facility]/[place] [facility] Prescription Benefit:??Yes Living Will/HPOA:??Pt does not currently have LW/HCPOA LNOK:?Mother. [place] Living Arrangements:?Lives w/mely and 2 sons. Independent. Works full-time Transportation:?Pt states drives self and states no transportation concerns at this time.?? DME: ? Denies using any DME HHC/SNF:?No hx of either. No needs identified, Pt wishes to return home and states has no concerns with going home at time of discharge.???CM?to follow for any discharge planning/needs.? Pt voices no concerns/needs at this time.? PLAN:??Home Екатерина BSN?RN?CM
[2022-07-29] MEDS: oxyCODONE 5 MG Tablet 10 MG PO ×2 (16:28→22:10)
[2022-07-29] MEDS: Temazepam 15 MG Capsule PO (22:09)
[2022-07-30] VITALS (16 sets, daily range): BP systolic 93–114; BP diastolic 56–74; PULSE 92–108; RESP 14–20; TEMP 36.3–37.1; O2SAT 96–100; BMI 46.9
[2022-07-30] MEDS: 0.9% Normal Saline 1,000 ML 150 ML IV ×2 (01:06→06:33)
[2022-07-30] MEDS: Morphine 2 MG/ML Syringe 4 MG IV (03:55)
[2022-07-30 04:39] LABS: Hematocrit 32.6 % (37-47); Hemoglobin 9.4 g/dL (12.0-15.0); Mean Corp Hgb Conc 28.8 g/dL (32-36); Mean Corpuscular Hgb 22.8 pg (27.0-32.0); Mean Corpuscular Volume 79.1 fL (81-99); Mean Platelet Vol. 10.6 fl (6.2-12.0); POSITIVE COUNT YES; POSITIVE MORPHOLOGY YES; Platelet Count 401 K/mm3 (150-450); RBC Distribution Width CV 24.2 % (11.6-14.6); RBC Distribution Width SD 69.6 fl (35.1-43.9); Red Blood Count 4.12 M/mm3 (4.2-5.4); White Blood Count 7.5 K/mm3 (4.4-11.0)
[2022-07-30 04:45] LABS: Differential Indicated MANUAL DIFF
[2022-07-30 05:04] LABS: Anion Gap 9 (5-15); BUN 51 mg/dL (7-18); BUN/Creat Ratio 44.3 RATIO (10-20); Calcium,Total 8.1 mg/dL (8.5-10.1); Chloride 114 mmol/L (98-107); Creatinine, Serum 1.15 mg/dL (0.55-1.02); EST Glomerular Filtration Rate 58 mL/min (>60); Est Glom Filt Rate - Afr Amer 70 mL/min (>60); Estimated Creatinine Clearance 57.56 ml/min; Glucose 98 mg/dL (74-106); Potassium 3.4 mmol/L (3.5-5.1); Sodium Level 139 mmol/L (136-145)
[2022-07-30 05:31] LABS: Lymphocyte 6 % (19-41); Metamyelocyte 2 % (0-1); Monocyte 3 % (0-10); Myelocyte 3 % (0-0); Neutrophil-Band 10 % (0-5); Neutrophil-Segmented 76 % (47-70); Total Cells Counted 100 (MANUAL DIFF)
[2022-07-30 05:32] LABS: Platelet Estimate ADEQUATE (ADEQ)
[2022-07-30 05:33] LABS: Absolute Lymphocyte Count 0.45 X10^3/uL (0.83-4.51); Absolute Neutrophil Count 6.5 X10^3/uL (2.0-7.7); Anisocytosis 1+; Lymphocyte # 0.45 X10^3/ul (0.83-4.51); Microcytosis 1+; Neutrophil # 6.48 X10^3/uL (2.7-7.7)
[2022-07-30] MEDS: Heparin Injection (Vial) 5,000 UNIT/ML VIAL 5000 UNIT SC (06:33)
--- NOTE | 2022-07-30 06:56 | PCM.PN.OB ---
Subjective Subjective still having drainage from right side of incision, no further enlargement to opening, and left flank increasing erythema with blistering, tenderness and edema. patient states she feels better and feels she is improving, no CP SOB Objective Data Objective Data Vital Signs: Vital Signs Temp Pulse Resp BP Pulse Ox O2 Del Method 98.8 F 105 H 18 108/64 97 Room Air 07/30/22 03:52 07/30/22 03:52 07/30/22 03:52 07/30/22 03:52 07/30/22 03:52 07/30/22 04:15 Oxygen Delivery Method Room Air Weight: 120.202 kg Body Mass Index (BMI) 46.9 Intake & Output: Intake and Output for Last 24 Hours 07/28/22 07/29/22 07/30/22 23:59 23:59 23:59 Intake Total 4547.5 / 4547.5 1855.0 / 1855.0 Balance 4547.5 / 4547.5 1855.0 / 1855.0 Lab / Micro Data Result Diagrams: 07/30/22 03:51 07/30/22 03:51 Labs: Laboratory Results - last 24 hr 07/30/22 03:51: WBC 7.5, RBC 4.12 L, Hgb 9.4 L, Hct 32.6 L, MCV 79.1 L, MCH 22.8 L, MCHC 28.8 L, RDW Std Deviation 69.6 H, RDW Coeff of Robyn 24.2 H, Plt Count 401, MPV 10.6, Neut % (Auto) Not Reportable, Absolute Neuts (auto) 6.5, Absolute Lymphs (auto) 0.45 L, Total Counted 100, Neutrophils % (Manual) 76 H, Band Neutrophils % 10 H, Lymphocytes % (Manual) 6 L, Monocytes % (Manual) 3, Metamyelocytes % 2 H, Myelocytes % 3 H, Diff Path Review May , Platelet Estimate ADEQUATE, Anisocytosis 1+, Microcytosis 1+ 07/30/22 03:51: Sodium 139, Potassium 3.4 L, Chloride 114 H, Carbon Dioxide 16.0 L, Anion Gap 9, BUN 51 H, Creatinine 1.15 H, Estim Creat Clear Calc 57.56, Est GFR (MDRD) Af Amer 70, Est GFR (MDRD) Non-Af 58 L, BUN/Creatinine Ratio 44.3 H, Glucose 98, Calcium 8.1 L Micro: Microbiology 07/28/22 19:52 Wound - Abdominal Gram Stain - Final 07/28/22 19:52 Wound - Abdominal Wound Culture - Preliminary GNR non green chain off bearer ROS Constitutional Constitutional: Reports as per HPI; Denies body ache(s), change in weight or chills ENT HEENT: Denies dizziness Respiratory/Chest Respiratory/Chest: Denies chest tightness or cough Genitourinary Genitourinary: Denies dysuria, flank pain or genital pain Musculoskeletal Musculoskeletal: Denies muscle weakness Physical Exam Const alert and no apparent distress Resp normal respiratory effort and normal air movement GI GI Narrative: pannus with ecchymosis and large area or erythema extending from her right/mid abdomen and extending to her left side. There is a stable sized 5 mm opening in the incision that is still draining a foul smelling purulent brown material. increasing erythema over left flank with blistering in the area, more edema. Extremity normal to inspection Skin Skin Narrative: see GI narrative Psych Appearance: grossly normal and appropriate Assessment & Plan (1) Acute renal failure: COMMENT: improving, Cr down to 1 today. appreciate medicine following for comanagement. suspect due to dehydration and infection. continue IVFs. (2) Cellulitis of skin: COMMENT: IV Vanc and meropenum. medicine consulted and following. right incisional drainage, wound center consulted. await continuing culture results, but will get repeat ct scan with IR consultation due to increasing edema and erythema on left flank (3) delivery delivered: COMMENT: SROM 38 SM LTCS [place] (4) Wound infection following section, : COMMENT: see cellulitis a/p. (5) History of gastric bypass: COMMENT: recommend one week of glucose 4x daily. Will do this week. PLAN: Plan patient is 2 weeks post with wound infection and cellulitis, accompanying acute renal failure - appreciate medicine consultation for comanagement - heparain for dvt prophylaxis- held due to IR consultation, scds on now. - h/o gastric sleeve surgery - wound center nursing following, get IR consultation with repeat ct today to determine if any drains needed. - IV ABx- await final cultures and clinical response to guide oral antibiotic choice see a/p comments for additional plan information Charges/Coding Visit Charges Inpatient E&M: 97171 Subs Hosp L3
[2022-07-30] MEDS: oxyCODONE 5 MG Tablet 10 MG PO (09:45)
--- NOTE | 2022-07-30 10:54 | PN.HOSP_ITS ---
Subjective Subjective Feels better now that her renal function is normalized Objective Data Objective Data Vital Signs: Vital Signs Temp Pulse Resp BP Pulse Ox O2 Del Method 98.0 F 98 18 110/56 L 97 Room Air 07/30/22 09:50 07/30/22 09:50 07/30/22 09:50 07/30/22 09:50 07/30/22 09:50 07/30/22 09:50 Oxygen Delivery Method Room Air Weight: 265 lb Body Mass Index (BMI) 46.9 Intake & Output: Intake and Output for Last 24 Hours 07/29/22 07/30/22 07/31/22 03:59 03:59 03:59 Intake Total 930 / 930 4655.0 / 4655.0 817.5 / 817.5 Balance 930 / 930 4655.0 / 4655.0 817.5 / 817.5 Lab / Micro Data Result Diagrams: 07/30/22 03:51 07/30/22 03:51 Labs: Laboratory Results - last 24 hr 07/30/22 03:51: WBC 7.5, RBC 4.12 L, Hgb 9.4 L, Hct 32.6 L, MCV 79.1 L, MCH 22.8 L, MCHC 28.8 L, RDW Std Deviation 69.6 H, RDW Coeff of Robyn 24.2 H, Plt Count 401, MPV 10.6, Neut % (Auto) Not Reportable, Absolute Neuts (auto) 6.5, Absolute Lymphs (auto) 0.45 L, Total Counted 100, Neutrophils % (Manual) 76 H, Band Neutr ophils % 10 H, Lymphocytes % (Manual) 6 L, Monocytes % (Manual) 3, Metamyelocytes % 2 H, Myelocytes % 3 H, Diff Path Review May , Platelet Estimate ADEQUATE, Anisocytosis 1+, Microcytosis 1+ 07/30/22 03:51: Sodium 139, Potassium 3.4 L, Chloride 114 H, Carbon Dioxide 16.0 L, Anion Gap 9, BUN 51 H, Creatinine 1.15 H, Estim Creat Clear Calc 57.56, Est GFR (MDRD) Af Amer 70, Est GFR (MDRD) Non-Af 58 L, BUN/Creatinine Ratio 44.3 H, Glucose 98, Calcium 8.1 L Micro: Microbiology 07/28/22 19:52 Wound - Abdominal Gram Stain - Final 07/28/22 19:52 Wound - Abdominal Wound Culture - Preliminary Pseudomonas aeroginosa GPC Poss Enterococcus sp 07/28/22 19:52 Wound - Abdominal Anaerobic Culture - Preliminary Checking for anaerobes, further studies to follow. Physical Exam Narrative General: Alert, Oriented x3, Cooperative, No apparent distress HEENT: Atraumatic, PERRLA, EOMI, Normocephalic Oral: Moist Mucosa Neck: Supple, No JVD Lungs: Clear to auscultation, Normal air movement, No rhonchi, No wheeze, No rales Cardiovascular: Regular rate, Regular Rhythm, Normal S1, Normal S2, No murmurs Abdomen: Soft, Non Tender, Non-Distended, No Hepato-splenomegaly Extremities: No edema, Capillary Refill Less than 3 Seconds Skin: Area of redness over her lower abdomen spreading from her scar. Dressing in place, erythema has progressed to the left of her pannus could be worsening infection could be dependent edema, there is some blistering Musculoskeletal: No Tenderness to Palpation of Joints or Extremities Neurological: Cranial nerves II-XII grossly intact, Motor Exam 5/5 strength throughout, Sensory exam intact to light touch and pain Psych/Mental Status: Normal Affect, Appropriate Assessment & Plan Assessment/Plan (1) Acute renal failure: PLAN: Plan 1. Postoperative wound infection from a on 07/12/2022/ANGEL ? She states that she has been drinking well but that her urine has been concentrated for the last several weeks. ? She had been struggling with constipation so had stopped her narcotics however when the pain became difficult to manage she did take around 1200 mg of ibuprofen prior to admission ? Continue with IV fluids, her renal function has resolved ? Wound cultures with a pansensitive Pseudomonas as well as a possible Enterococcus, she has had hives with penicillin as well as cefdinir so we will continue with her meropenem and her vancomycin ? Primary ordered CT scan to evaluate spreading erythema will await results ? CT scan from OSH was negative for any large abscess or extension into the abdominal cavity Will sign off, call with questions DVT: Heparin Charges/Coding Visit Charges Inpatient E&M: 60912 Subs Hosp L2
--- NOTE | 2022-07-30 11:14 | WOUNDNOTE ---
skin photo: left lower abdomen
--- NOTE | 2022-07-30 11:15 | WOUNDNOTE ---
skin photo: left lower abdomen
--- NOTE | 2022-07-30 11:28 | CT_ITS ---
STUDY: CT ABDOMEN AND PELVIS WITH CONTRAST REASON FOR EXAM: Female, 32 years old. Cellulitis/wound drainage. History of prior gastric bypass surgery. Recent section. RADIATION DOSAGE (If Supplied By Facility): CTDIvol = ( 17.55 ) mGy, DLP = ( 3050.57 ) mGycm TECHNIQUE: Transaxial images were obtained from the dome of the diaphragm to the symphysis pubis without oral contrast. IV 100mL Isovue-300 was administered. Sagittal and coronal images were reconstructed. Individualized dose optimization techniques were used for this CT. COMPARISON: Comparison is made with prior study dated 08/07/2020. FINDINGS: The visualized lung bases are unremarkable. The visualized portions of the heart are within normal limits. Normal liver. Normal gallbladder and extrahepatic biliary system. Normal spleen. Normal pancreas. Normal bilateral adrenal glands. Normal right kidney. Normal left kidney. The patient is status post subtotal gastrectomy for bariatric surgery. Normal small intestine. Normal colon. The appendix is visualized and appears normal. Normal abdominal aorta. Normal inferior vena cava. Normal retroperitoneum. Normal urinary bladder. Large area of the edematous change with evidence of air in the deep subcutaneous tissues overlying the left flank extending down into the lower pelvic region. No drainable abscess or fluid is seen at this time. Necrotizing fasciitis should be ruled out. Normal osseous structures. CT/Abdomen/Pelvis WITH Contrast IMPRESSION: Larger epididymis change with evidence of air in the deep subcutaneous tissues overlying the left flank extending down into the lower left pelvic and central regions as described. Necrotizing fasciitis should be ruled out. No evidence of abscess or fluid collection for drainage. N.B. : The above Results were Read Back by Jonnathan Blair MD to Jose Manuel Munoz [id number], and understanding confirmed on 07/30/2022 12:40:30 (ET). Electronically Signed: Jonnathan Blair MD at 12:24 EST ,
--- NOTE | 2022-07-30 13:25 | HP.PCM.SX_ITS ---
HPI - General General Date of Admission: 07/28/22 HPI Narrative TALIB MG, is a 32 F who presents due to left abdominal cellulitis. Patient was admitted on 07/28/2022 and was given IV antibiotics currently on meropenem and vancomycin, cultures have been pending. Patient CT abdomen pelvis consistent with necrotizing cellulitis with subcutaneous air in the left abdominal wall today. Patient has bands of 10% with a normal white blood cell count. Patient initially had her on 07/13/2022. Patient did also have acute kidney injury which her creatinine is 1.15 [facility] Medical History Anemia Gastric polyp GERD (gastroesophageal reflux disease) Home Medications prenat.vits,mirian,kgr-jyhl-ofvwy 1 tab PO DAILY Check with primary doctor 12/08/21 [History Last Taken 07/12/22] omeprazole 40 mg capsule,delayed release 20 mg PO BID heart burn 07/29/22 [History Last Taken 07/28/22 09:00] Allergy/AdvReac Type Severity Reaction Status Date / Time amoxicillin [From Amoxil] Allergy Intermediate hives Verified 07/27/22 14:06 cefdinir Allergy Hives Verified 07/27/22 14:06 adhesive tape AdvReac Mild Rash Verified 07/27/22 14:06 Family History Father Hypertension Cancer prostate Aortic aneurysm DVT (deep venous thrombosis) Mother Hypertension Grandmother Cancer cervical Surgical History S/P gastric surgery Status post hip surgery Social History (Updated 07/27/22 @ 14:13 by Harriet Hobbs) adopted: No household members: significant other number of children: 2 current occupational status: employed current occupation: [employer] pets and animals: No Smoking Status: Never smoker alcohol intake: never substance use type: does not use caffeine: No do you feel safe at home: Yes additional social history: Shweta Sethi Vital Signs Vital Signs Vital Signs: 07/29/22 14:29 07/29/22 14:31 07/29/22 16:20 Temperature 97.9 F 98.4 F Temperature Source Oral Oral Pulse Rate 99 98 Pulse Strength Respiratory Rate 18 18 Respiratory Effort Normal Non-Labored Respiratory Depth Normal Respiratory Pattern Normal Blood Pressure 89/60 L 80/51 L Blood Pressure Mean 69 60 Blood Pressure Source Monitor Blood Pressure Position Semi-Fowlers Blood Pressure Location Left Arm Pulse Ox 98 100 Oxygen Delivery Method Room Air Room Air Room Air 07/29/22 18:20 07/29/22 20:00 07/29/22 22:04 Temperature 98.0 F 98.8 F Temperature Source Oral Oral Pulse Rate 118 H 105 H Pulse Strength Normal (2+) Respiratory Rate 18 18 Respiratory Effort Respiratory Depth Respiratory Pattern Blood Pressure 103/67 102/67 Blood Pressure Mean 79 78 Blood Pressure Source Monitor Blood Pressure Position Semi-Fowlers Blood Pressure Location Left Arm Pulse Ox 99 99 Oxygen Delivery Method Room Air Room Air 07/29/22 22:04 07/29/22 22:32 07/30/22 03:52 Temperature 98.8 F 98.8 F Temperature Source Oral Oral Pulse Rate 105 H 105 H Pulse Strength Respiratory Rate 18 18 Respiratory Effort Normal Non-Labored Respiratory Depth Normal Respiratory Pattern Normal Blood Pressure 102/67 108/64 Blood Pressure Mean 78 78 Blood Pressure Source Blood Pressure Position Blood Pressure Location Pulse Ox 99 97 Oxygen Delivery Method Room Air Room Air Room Air 07/30/22 03:52 07/30/22 04:15 07/30/22 09:30 Temperature 98.8 F Temperature Source Oral Pulse Rate 105 H Pulse Strength Respiratory Rate 18 Respiratory Effort Normal Non-Labored Normal Non-Labored Respiratory Depth Normal Normal Respiratory Pattern Normal Normal Blood Pressure 108/64 Blood Pressure Mean 78 Blood Pressure Source Blood Pressure Position Blood Pressure Location Pulse Ox 97 Oxygen Delivery Method Room Air Room Air Room Air 07/30/22 09:50 07/30/22 10:00 07/30/22 09:50 Temperature 98.0 F 98.0 F Temperature Source Oral Oral Pulse Rate 98 98 Pulse Strength Normal (2+) Respiratory Rate 18 18 Respiratory Effort Respiratory Depth Respiratory Pattern Blood Pressure 110/56 L 110/56 L Blood Pressure Mean 74 74 Blood Pressure Source Monitor Blood Pressure Position Semi-Fowlers Blood Pressure Location Right Arm Pulse Ox 97 97 Oxygen Delivery Method Room Air Room Air Weight Weight: 264 lb 15.93 oz Body Mass Index (BMI) 46.9 Physical Exam Const oriented x3 Resp normal respiratory effort Cardio regular rate GI GI Narrative: Erythema to the left flank/left lower abdomen, to the right lower abdomen, small incision draining grayish-tannish foul-smelling fluid in the right lower quadrant. Tender to palpation in the lower abdomen. Extremity full ROM Results Lab / Micro Data Result Diagrams: 07/30/22 03:51 07/30/22 03:51 Labs: Laboratory Results - last 24 hr 07/30/22 03:51: WBC 7.5, RBC 4.12 L, Hgb 9.4 L, Hct 32.6 L, MCV 79.1 L, MCH 22.8 L, MCHC 28.8 L, RDW Std Deviation 69.6 H, RDW Coeff of Robyn 24.2 H, Plt Count 401, MPV 10.6, Neut % (Auto) Not Reportable, Absolute Neuts (auto) 6.5, Absolute Lymphs (auto) 0.45 L, Total Counted 100, Neutrophils % (Manual) 76 H, Band Neutrophils % 10 H, Lymphocytes % (Manual) 6 L, Monocytes % (Manual) 3, Metamyelocytes % 2 H, Myelocytes % 3 H, Diff Path Review November, Platelet Estimate ADEQUATE, Anisocytosis 1+, Microcytosis 1+ 07/30/22 03:51: Sodium 139, Potassium 3.4 L, Chloride 114 H, Carbon Dioxide 16.0 L, Anion Gap 9, BUN 51 H, Creatinine 1.15 H, Estim Creat Clear Calc 57.56, Est GFR (MDRD) Af Amer 70, Est GFR (MDRD) Non-Af 58 L, BUN/Creatinine Ratio 44.3 H, Glucose 98, Calcium 8.1 L Micro: Microbiology 07/28/22 19:52 Wound - Abdominal Gram Stain - Final 07/28/22 19:52 Wound - Abdominal Wound Culture - Preliminary Pseudomonas aeroginosa GPC Poss Enterococcus sp 07/28/22 19:52 Wound - Abdominal Anaerobic Culture - Preliminary Checking for anaerobes, further studies to follow. Radiology Impression Abdomen/Pelvis CT 07/30/22 11:28 IMPRESSION: Larger epididymis change with evidence of air in the deep subcutaneous tissues overlying the left flank extending down into the lower left pelvic and central regions as described. Necrotizing fasciitis should be ruled out. No evidence of abscess or fluid collection for drainage. Electronically Signed: Jonnathan Blair MD at 12:24 EST , ADDENDUM: 07/30/22 1240 IMPRESSION: Large edematous change with evidence of air in the deep subcutaneous tissues overlying the left flank extending down into the left lower pelvis and central region as described. Necrotizing fasciitis should be ruled out. No evidence of abscess or fluid collection for drainage at this time. Electronically Signed: Jonnathan Blair MD at 12:34 EST , ADDENDUM: 07/30/22 1247 IMPRESSION: Large edematous change with evidence of air in the deep subcutaneous tissues overlying the left flank extending down into the left lower pelvis and central region as described. Necrotizing fasciitis should be ruled out. No evidence of abscess or fluid collection for drainage at this time. Electronically Signed: Jonnathan Blair MD at 12:34 EST , N.B. : The above Results were Read Back by Jonnathan Blair MD to Jose Manuel Munoz [id number], and understanding confirmed on 07/30/2022 12:40:30 (ET). Assessment & Plan Assessment/Plan (1) Necrotizing cellulitis: PLAN: Plan We will plan for emergent OR for debridement of left abdominal wall, possible panniculectomy. Discussed risk including but not limited to bleeding, infection, need for further surgery, and anesthesia. Patient has no questions this time. Personally reviewed CT abdomen pelvis patient does have a large amount of subcutaneous air near the fascia mostly on the left but does have some air bubbles on the right as well. Ameena Brody M.D. Pager: [phone] [facility] [address] [place] [address], [facility], [address] [place] [address] Office: [phone]
--- NOTE | 2022-07-30 13:37 | PCM.PN.BLA ---
Progress Note necrotizing fasciitis diangosed on CT scan- patient consented for general surgery to take back to OR for debridement and possible panniculecotmy, called and spoke to . clindamycin added.
--- NOTE | 2022-07-30 13:41 | WOUNDNOTE ---
CT scan showing possible necrotizing fasciitis. patient taken down to the OR for surgery per Dr Grimes. will continue to follow.
[2022-07-30] MEDS: Clindamycin 900 MG/50 ML BAG 75 MG IV (14:14)
--- NOTE | 2022-07-30 15:30 | ABS_PTH ---
PATIENT: TALIB MG LOC: MS3 U#:[id number] AGE/SX: 32/F ROOM: [facility] RE07/28/[address]: Dr. Renata Camp DO : 1990 BED: 1 DIS: 08/04/2022 SPEC #: [id number] RECD: 07/30/22 16:23 STATUS: BRANDAN REAngelina #: [id number] SURENDRA: 07/30/22 15:[address]: Renata Camp DEPT: SURGICAL PATHOLOGY RECD BY: Dorothea Garsia ENTERED: 08/02/22 11:09 SP TYPE: Abscess OTHR DR: DO Dr. Eh Goldman MD Dr. Prakash Chand, MD Dr. Robert Leininger, MD Dr. William Lago, MD Tissues: A - Abdomen, NOS B - Abdomen, NOS Procedures: Surgery Specimen Level IV HEADER OPERATION: Left abdominal wall debridement with panniculectomy PRE-OP DIAGNOSIS: Necrotizing cellulitis TISSUE SUBMITTED: A ? Necrotizing abdominal abscess, B - Necrotizing abdominal abscess MICROSCOPIC DIAGNOSIS A. Necrotizing abdominal abscess, panniculectomy: Pieces of skin with underlying adipose tissue with focal ulceration and extensive acute inflammation and abscess formation. B. Necrotizing abdominal abscess, panniculectomy: Pieces of skin with underlying adipose tissue with focal ulceration and extensive acute inflammation and abscess formation. SJ:jurgen 08/03/2022 MICROSCOPIC DESCRIPTION Slides are reviewed. GROSS DESCRIPTION A - Received in fixative is one container labeled with the patient's name and designated necrotizing abdominal wound. The specimen consists of 28 fragments of biswas-yellow fibrofatty tissue ranging in size from 1.5 to 26.5 cm. The larger fragments contain grossly unremarkable skin. Focal grayish discoloration of skin is identified in an area measuring 3 x 2.5 cm. Serial sections reveal yellow cut surfaces with focal areas of biswas-eid discoloration. No mass lesions are identified. Rug Sample Beveler sections are submitted in five cassettes. B - Received in fixative is one container labeled with the patient's name and designated necrotizing abdominal wound. The specimen consists of two irregular fragments of pink-biswas skin with attached yellow-eid fatty tissue ranging in size from 23.4 to 29 cm. Grayish-red discoloration is identified on both fragments ranging in size from 1 to 8.5 cm. Serial sections reveal indurated biswas-eid discoloration, focally. No mass lesions are identified. Rug Sample Beveler sections are submitted in five cassettes. / AM:jurgen 08/02/2022 TC:2 CPT: 63875 x2
[2022-07-30 15:38] LABS: Pathologist Review Reviewed
--- NOTE | 2022-07-30 16:40 | RAD_ITS ---
INDICATION: line placement EXAMINATION/TECHNIQUE: X-RAY - XR Chest 1 View COMPARISON: None. FINDINGS: The lungs are clear. The cardiomediastinal silhouette is unremarkable. Endotracheal tube in place with tip 3.2 cm above the tomy. Right IJ central venous catheter with tip in the low SVC. No pleural effusion or pneumothorax. No acute osseous abnormalities. RAD/CXR for Line Placement IMPRESSION: No acute radiographic abnormalities. Endotracheal tube in place with tip 3.2 cm above the tomy. Right IJ central venous catheter with tip in the low SVC. Electronically Signed: Tarik Valencia MD at 17:50 EST ,
--- NOTE | 2022-07-30 17:00 | PCM.OPRPT ---
Report of Operation Date of Procedure: 07/30/22 Pre-Operative Diagnosis: post op wound infection, necrotizing cellulitis/fasciitis Post-Operative Diagnosis: same, need for IV access Surgery/Procedure Performed:: extensive debridement of lower abdominal wall necrotizing infection, panniculectomy, placement of right IJ temporary triple lumen catheter Surgeon: Ameena Brody optical brightener maker helper: Soham Coronado optical brightener maker helper: Risa Pinto Type of Anesthesia: General/Supplemental Anesthesiologist: Juan Rodriguez Special Medications: pt was already on meropenem/vanco & clindamycin given in addition Specimen's removed: panniculectomy-necrotizing abdominal wound infection; cx of wound/tissue Estimated Blood Loss (mL): 80 cc Description of Procedure: Pt was bought in OR room, placed supine on table. Time out completed verifying correct, patient, procedure, positioning, special equiptment prior to procedure. General anesthesia was induced. Abdomen was prepped and draped in sterile fashion with betadine. Large elliptical inferior incision was planned in lower abdomen following areas of erythema extending more to the left flank. Incision was made with 10 blade scapel/cut electrocautary. This was deepened to fascia with electrocautery/ ligasure impact. All subcutaneous which was infected was debrided and cultures were also sent. This left a large defect about approximately 40 cm x 18 cm x 5 cm (depth). Facia appeared to be intact- one figure of 8, 0 prolene suture was placed on the right lateral aspect of previous csection fascial closure. Wound was copiously irrigated with saline and also with one bottle of irrisept. Hemostasis was achieved with electrocautery. Wound was dressed with betadine soaked kerlix x 4 with dry kerlix over the top and ioban x 2 covering. The patient was placed in the supine position for a central line placement to the right IJ vein. The patients right neck was prepped using chlorhexidine and a sterile drape was applied. A triple lumen central catheter introduced into the internal jugular vein using the modified Seldinger technique with the assistance of ultrasound. Guidewire was easily placed after venous blood was aspirated. The site was dilated. The catheter was threaded smoothly over the guidewire, the guidewire was removed easily, nonpulsatile blood returned. All ports were aspirated of air and flushed with sterile saline. The catheter was sutured in place and covered with an occlusive dressing. CXR was ordered and verified line placement and no PTX. Pt annie procedure well and was taken to ICU still intubated due to plans for tomorrow to return to OR for another look. Complications none
[2022-07-30 17:22] LABS: Vancomycin, Trough Level 7.5 ug/mL (5.0-15.0)
--- NOTE | 2022-07-30 17:50 | CPS ---
Patient came intubated from surgery.
[2022-07-30] MEDS: Propofol 10MG/Ml 1,000 MG/100 ML Bottle 7.2 MG CONT INF (18:18)
[2022-07-30] MEDS: Potassium Chloride 40 MEQ in 0.9% Normal Saline 1,000 ML 150 MEQ IV (19:00)
[2022-07-30 19:20] LABS: Base Excess -10 mmol/L (-2 to +2); Blood Gas Specimen Type ART; FI02 60; Mode AC; O2 Delivery Device Adult Vent; PEEP 5; PO2 231 mmHG (75-100); RR 14; SITE L Radial; SO2 100 % (95-99); Total Carbon Dioxide 17 mmol/L; Vt 450; pCO2 29.7 mmHg (35-45); pH 7.34 (7.35-7.45)
[2022-07-30 19:31] LABS: CPK Total, Creatine Kinase 280 U/L (26-192); Triglycerides 114 mg/dL
[2022-07-30 19:44] LABS: Hematocrit 31.2 % (37-47); Mean Corp Hgb Conc 28.8 g/dL (32-36); Mean Corpuscular Hgb 23.3 pg (27.0-32.0); Mean Corpuscular Volume 80.8 fL (81-99); Mean Platelet Vol. 10.5 fl (6.2-12.0); POSITIVE COUNT YES; POSITIVE MORPHOLOGY YES; Platelet Count 368 K/mm3 (150-450); RBC Distribution Width CV 24.9 % (11.6-14.6); RBC Distribution Width SD 71.9 fl (35.1-43.9); Red Blood Count 3.86 M/mm3 (4.2-5.4); White Blood Count 11.2 K/mm3 (4.4-11.0)
[2022-07-30 19:51] LABS: Differential Indicated MANUAL DIFF
[2022-07-30 20:12] LABS: Anisocytosis 2+; Lymphocyte 12 % (19-41); Macrocytosis 1+; Metamyelocyte 1 % (0-1); Microcytosis 1+; Monocyte 2 % (0-10); Myelocyte 3 % (0-0); Neutrophil-Band 7 % (0-5); Neutrophil-Segmented 75 % (47-70); Platelet Estimate ADEQUATE (ADEQ); Total Cells Counted 100 (MANUAL DIFF); Toxic Granulation 1+
[2022-07-30 20:13] LABS: Absolute Lymphocyte Count 1.34 X10^3/uL (0.83-4.51); Absolute Neutrophil Count 9.2 X10^3/uL (2.0-7.7)
--- NOTE | 2022-07-30 20:14 | PCM.RX.CS ---
Consult Pharmacy has been consulted to manage selected antiobiotic: Vancomycin Type of Consult: Follow-up Suspected Infection: Skin/Soft tissue Prior Doses of Antibiotics Received/Current Regimen: 2000mg iv @1549 on 07.28.22 at another facility, then 1500mg iv q24h starting 07.29.22 @1624. Labs: Sodium 139 mmol/L (136-145) 07/30/22 03:51 Potassium 3.4 mmol/L (3.5-5.1) L 07/30/22 03:51 Chloride 114 mmol/L (98-107) H 07/30/22 03:51 Carbon Dioxide 16.0 mmol/L (21.0-32.0) L 07/30/22 03:51 Anion Gap 9 (5-15) 07/30/22 03:51 BUN 51 mg/dL (7-18) H 07/30/22 03:51 Creatinine 1.15 mg/dL (0.55-1.02) H 07/30/22 03:51 Est GFR (MDRD) Af Amer 70 mL/min (>60) 07/30/22 03:51 Est GFR (MDRD) Non-Af 58 mL/min (>60) L 07/30/22 03:51 BUN/Creatinine Ratio 44.3 RATIO (10-20) H 07/30/22 03:51 Glucose 98 mg/dL (74-106) 07/30/22 03:51 Vancomycin Trough 7.5 ug/mL (5.0-15.0) 07/30/22 Unknown Microbiology: Microbiology 07/28/22 19:52 Wound - Abdominal Gram Stain - Final 07/28/22 19:52 Wound - Abdominal Wound Culture - Preliminary Pseudomonas aeroginosa GPC Poss Enterococcus sp 07/28/22 19:52 Wound - Abdominal Anaerobic Culture - Preliminary Checking for anaerobes, further studies to follow. Weight used for dosin kg Estimated Creatinine Clearance: 87 ml/min Goal Trough: 10-15 mcg/mL Pharmacy Plan for Drug Dosing: Trough level today was 7.5. Using adjusted body weight of 79.5kg, CrCl was calculated to be ~87ml/min. Dose will be changed to 1250mg iv q12h as means to reach trough goal of 10-15mcg/ml. New trough level ordered for 08.01.22 before 4th dose of new regimen. Pharmacy Service will continue to monitor and adjust dosing as required. Follow-Up Labs: Trough Vancomycin - 1.22.23 @0630 before 0700 dose
[2022-07-30] MEDS: Clindamycin 600 MG/50 ML BAG 100 MG IV (21:23)
--- NOTE | 2022-07-30 21:45 | RAD_ITS ---
INDICATION: OG placement -- portable EXAMINATION/TECHNIQUE: X-RAY - XR Abdomen 1 View COMPARISON: None FINDINGS: BOWEL GAS PATTERN: Non-obstructive. OG tube with tip in the stomach. FREE AIR: Not assessed on a single supine view. ORGANOMEGALY: Not seen. CALCIFICATIONS: No abnormal calcifications observed. LOWER CHEST: No acute pathology. BONES AND SOFT TISSUES: No acute pathology. RAD/Abdomen Single View (Portable) IMPRESSION: OG tube with tip in the stomach. Electronically Signed: Tarik Valencia MD at 23:14 EST ,
--- NOTE | 2022-07-30 21:55 | RAD_ITS ---
INDICATION: OG placement -- portable EXAMINATION/TECHNIQUE: X-RAY - XR Abdomen 1 View COMPARISON: 07/30/2019. FINDINGS: BOWEL GAS PATTERN: Non-obstructive. OG tube is coiled in the stomach. FREE AIR: Not assessed on a single supine view. ORGANOMEGALY: Not seen. CALCIFICATIONS: No abnormal calcifications observed. LOWER CHEST: No acute pathology. BONES AND SOFT TISSUES: No acute pathology. RAD/Abdomen Single View (Portable) IMPRESSION: OG tube is coiled in the stomach. Electronically Signed: Tarik Valencia MD at 23:13 EST ,
[2022-07-30] MEDS: Chlorhexidine 15 ML PO (22:27)
--- NOTE | 2022-07-30 23:44 | NURSING ---
Addendum entered by Ruma Velásquez 07/31/22 01:13: Dr. Brody notified of situation. She is okay with waiting until later today to reintubate for surgery as long as she is doing okay respiratory-castillo. Original Note: Ventilator alarming, PENSIONHOLDER INFORMATION CLERK and this RN went into room. Pt had self-extubated, oxygen 96% on room air, no respiratory distress noted. Respiratory at bedside. Pt said she did not know that she wasn't supposed to pull the tube out. Dr. Grimes notified (electronic data processing auditor for Dr. Camp), and she wanted to defer the decision to Dr. Brody. Dr. Brody paged, waiting electronic data processing auditor-back. Pt placed on 2 L NC for comfort. Dr. Hoffman also notified of situation.
[2022-07-31] VITALS (24 sets, daily range): BP systolic 85–119; BP diastolic 54–84; PULSE 97–117; RESP 14–26; TEMP 37.3–38.3; O2SAT 92–99; BMI 47.4
--- NOTE | 2022-07-31 01:10 | CPS ---
Patient self extubated at this time. Lungs clear to auscultation with normal airflow in upper airways. No respiratory distress observed at this time. Patient placed on 2 LPM nasal cannula, SpO2 97%. Physician notified by RN.
[2022-07-31] MEDS: Potassium Chloride 40 MEQ in 0.9% Normal Saline 1,000 ML 150 MEQ IV (02:24)
[2022-07-31 03:16] LABS: Hematocrit 27.5 % (37-47); Hemoglobin 8.1 g/dL (12.0-15.0); Mean Corp Hgb Conc 29.5 g/dL (32-36); Mean Corpuscular Hgb 23.7 pg (27.0-32.0); Mean Corpuscular Volume 80.4 fL (81-99); Mean Platelet Vol. 10.3 fl (6.2-12.0); POSITIVE COUNT YES; POSITIVE MORPHOLOGY YES; Platelet Count 407 K/mm3 (150-450); RBC Distribution Width CV 25.2 % (11.6-14.6); RBC Distribution Width SD 72.9 fl (35.1-43.9); Red Blood Count 3.42 M/mm3 (4.2-5.4); White Blood Count 10.6 K/mm3 (4.4-11.0)
[2022-07-31 03:18] LABS: Differential Indicated MANUAL DIFF
[2022-07-31 03:31] LABS: ALB/GLOB Ratio 0.2 RATIO (0.9-2.4); AST(SGOT) 23 U/L (15-37); Alanine Aminotransfer ALT/SGPT 11 U/L (13-56); Alkaline Phosphatase 184 U/L (45-117); Anion Gap 8 (5-15); BUN 33 mg/dL (7-18); BUN/Creat Ratio 41.9 RATIO (10-20); Calcium,Total 7.7 mg/dL (8.5-10.1); Chloride 120 mmol/L (98-107); Creatinine, Serum 0.79 mg/dL (0.55-1.02); EST Glomerular Filtration Rate 90 mL/min (>60); Est Glom Filt Rate - Afr Amer 108 mL/min (>60); Estimated Creatinine Clearance 83.79 ml/min; Glucose 92 mg/dL (74-106); Potassium 4.2 mmol/L (3.5-5.1); Sodium Level 146 mmol/L (136-145)
[2022-07-31] MEDS: Clindamycin 600 MG/50 ML BAG 100 MG IV ×3 (05:05→20:35)
[2022-07-31] MEDS: CHLORHEXIDINE GLUC 2% CLOTH 1 EACH TOWELETTE TOPICAL (05:05)
[2022-07-31 05:47] LABS: Fibrinogen 842 mg/dl (203-444); International Normalized Ratio 1.4; Partial Thromboplast Time 30.2 Seconds (24.1-36.2); Prothrombin Time (Protime)PT. 16.5 SECONDS (11.7-14.9)
[2022-07-31 06:40] LABS: Lymphocyte 13 % (19-41); Metamyelocyte 1 % (0-1); Monocyte 5 % (0-10); Myelocyte 10 % (0-0); Neutrophil-Band 4 % (0-5); Neutrophil-Segmented 67 % (47-70); Platelet Estimate ADEQUATE (ADEQ); Total Cells Counted 100 (MANUAL DIFF)
[2022-07-31 06:41] LABS: Absolute Neutrophil Count 7.6 X10^3/uL (2.0-7.7); Anisocytosis 1+; Microcytosis 1+; Neutrophil # 7.55 X10^3/uL (2.7-7.7)
[2022-07-31 06:42] LABS: Absolute Lymphocyte Count 1.38 X10^3/uL (0.83-4.51); Lymphocyte # 1.38 X10^3/ul (0.83-4.51)
[2022-07-31] MEDS: Morphine 2 MG/ML Syringe IV ×2 (07:29→09:54)
[2022-07-31] MEDS: Potassium Chloride 40 MEQ in 0.45% Normal Saline 1,000 ML 150 MEQ IV ×3 (08:28→23:01)
--- NOTE | 2022-07-31 08:44 | EX.PCM.CONCC ---
Assessment & Plan Assessment/Plan (1) Necrotizing cellulitis: (2) Acute renal failure: PLAN: Plan RECOMMENDATIONS: 1. Continue antibiotics as ordered 2. Bolus with LR if necessary 3. Consider empiric AutoPap with continuous pulse ox with sleep 4. Possibly able to go to floor following surgery pending operative course 5. Await debridement recommendations IMPRESSIONS: 1. Sepsis secondary to necrotizing fasciitis following postop day #1 Evidence of endorgan damage by acute kidney injury. Patient was surgical debridement yesterday. Patient reportedly tolerated this well. Patient was able to tolerate room air overnight after being self extubated. Patient is to go back to the OR today. Blood pressures are slightly low, but patient is mentating well. Patient may have an element of hypotension secondary to morphine. Patient is on appropriate antibiotics. Patient may be able to be transferred to the [facility] floor pending operative course and plans for repeat exploration. Morning labs are not consistent with DIC, but patient will be at risk moving forward 2. Acute kidney injury/Hyperchloremic metabolic acidosis Patient presented with a creatinine of 2.36 and has no history of previous renal dysfunction. Patient has responded well to therapy. Patient does have some increased chloride, likely secondary to fluid resuscitation. Recommend using LR or half-normal saline to avoid hyperchloremic metabolic acidosis progressing 3. Morbid obesity/recent delivery/GERD Complicates care, management, recovery and prognosis. Patient does not have any formal diagnosis of obstructive sleep apnea, but would be at risk, especially in the setting of narcotics dictated by problem #1. Would recommend continuous pulse ox with empiric AutoPap with sleep while patient is requiring narcotic rescue. Okay to continue HPI Consult Data Date of Consult: 07/31/22 HPI Narrative Reason for Consultation: Necrotizing fasciitis HPI Narrative: TALIB MG is a 32 F, with past medical history listed below, who presented to [facility] on 07/28/2022 after being found to have acute renal failure and possible wound infection at an outside facility. Patient reportedly had a section on 07/13/[address] Grimes here [facility]. Patient was found to be afebrile, but woke up feeling redness and bruising around her umbilicus. Patient was noted to have an outside facility to be in acute renal failure with some concern of subcutaneous air. Patient was directly admitted to the PCU for further evaluation. Yesterday, patient went to the OR for debridement. Patient had an extensive debridement and was reportedly to go back today for reexploration, so was left intubated. Overnight, patient self extubated despite propofol and fentanyl. Patient states she does have abdominal pain that she rates at 7/10. Patient's blood pressures have been soft, but no pressors have been required. Patient denies any nausea or vomiting. Patient was doing well on room air. Patient does not report any history of respiratory complaints in the past. Patient has never been diagnosed with COPD or asthma. 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 Patient does not report a history of recurrent infections. Patient does have some GERD at baseline. Patient's description of her pregnancies were unremarkable. Patient does have morbid obesity, but denies a history of obstructive sleep apnea. Review of systems otherwise negative from a constitutional, HEENT, respiratory, cardiovascular, GI, genitourinary, musculoskeletal, skin, neurologic, psychiatric and hematologic system unless stated above. [facility] Medical History Anemia Gastric polyp GERD (gastroesophageal reflux disease) Home Medications prenat.vits,mirian,nbv-otns-fxtsy 1 tab PO DAILY Check with primary doctor 12/08/21 [History Last Taken 07/12/22] omeprazole 40 mg capsule,delayed release 20 mg PO BID heart burn 07/29/22 [History Last Taken 07/28/22 09:00] Allergy/AdvReac Type Severity Reaction Status Date / Time amoxicillin [From Amoxil] Allergy Intermediate hives Verified 07/27/22 14:06 cefdinir Allergy Hives Verified 07/27/22 14:06 adhesive tape AdvReac Mild Rash Verified 07/27/22 14:06 Family History Father Hypertension Cancer prostate Aortic aneurysm DVT (deep venous thrombosis) Mother Hypertension Grandmother Cancer cervical Surgical History S/P gastric surgery Status post hip surgery Social History adopted: No household members: significant other number of children: 2 current occupational status: employed current occupation: [employer] pets and animals: No Smoking Status: Never smoker alcohol intake: never substance use type: does not use caffeine: No do you feel safe at home: Yes additional social history: Shweta OSHEA ROS Narrative See HPI Physical Exam Const alert, oriented x3 and no apparent distress General Appearance: in distress Positive for mild (Pain secondary to abdomen) HEENT normocephalic and head/scalp atraumatic HEENT Narrative: Dry mucous membranes Eyes PERRL, EOMs intact bilaterally, conjunctivae normal and no scleral icterus Neck full ROM and no lymphadenopathy Resp normal respiratory effort and normal air movement Effort and Inspection: able to speak in complete sentences Auscultation: Negative for rales, rhonchi or wheezes Cardio regular rhythm, S1 normal heart sound, S2 normal heart sound, no murmurs, no rub and no gallops Rate: tachycardic GI GI Narrative: Large open surgical wound noted. Extremity normal to inspection and no clubbing, cyanosis or edema Skin Skin Narrative: See abdomen. Lower extremities wrapped Neuro oriented x3, CN's II-XII intact bilaterally and moves all extremities Psych cooperative and affect normal Appearance: grossly normal and appropriate Lab / Micro Data Attestation: I reviewed the patient's lab results. Result Diagrams: 07/31/22 03:10 07/31/22 03:10 Labs: Laboratory Results - last 24 hr 07/30/22 03:51: Diff Path Review Reviewed 07/30/22 18:15: Total Creatine Kinase 280 H, Triglycerides 114 07/30/22 19:55: Blood Type B POSITIVE, Antibody Screen NEGATIVE, Crossmatch See Detail 07/30/22 : Vancomycin Trough 7.5 07/30/22 : Blood Type Cancelled, Antibody Screen Cancelled, Crossmatch See Detail 07/30/22 : WBC 11.2 H, RBC 3.86 L, Hgb 9.0 L, Hct 31.2 L, MCV 80.8 L, MCH 23.3 L, MCHC 28.8 L, RDW Std Deviation 71.9 H, RDW Coeff of Robyn 24.9 H, Plt Count 368, MPV 10.5, Neut % (Auto) Not Reportable, Absolute Neuts (auto) 9.2 H, Absolute Lymphs (auto) 1.34, Total Counted 100, Neutrophils % (Manual) 75 H, Band Neutrophils % 7 H, Lymphocytes % (Manual) 12 L, Monocytes % (Manual) 2, Metamyelocytes % 1, Myelocytes % 3 H, Diff Path Review May foll, Toxic Granulation 1+, Platelet Estimate ADEQUATE, Anisocytosis 2+, Microcytosis 1+, Macrocytosis 1+ 07/31/22 03:10: WBC 10.6, RBC 3.42 L, Hgb 8.1 L, Hct 27.5 L, MCV 80.4 L, MCH 23.7 L, MCHC 29.5 L, RDW Std Deviation 72.9 H, RDW Coeff of Robyn 25.2 H, Plt Count 407, MPV 10.3, Neut % (Auto) Not Reportable, Absolute Neuts (auto) 7.6, Absolute Lymphs (auto) 1.38, Total Counted 100, Neutrophils % (Manual) 67, Band Neutrophils % 4, Lymphocytes % (Manual) 13 L, Monocytes % (Manual) 5, Metamyelocytes % 1, Myelocytes % 10 H, Diff Path Review November foll, Platelet Estimate ADEQUATE, Anisocytosis 1+, Microcytosis 1+ 07/31/22 03:10: Sodium 146 H, Potassium 4.2, Chloride 120 H, Carbon Dioxide 18.0 L, Anion Gap 8, BUN 33 H, Creatinine 0.79, Estim Creat Clear Calc 83.79, Est GFR (MDRD) Af Amer 108, Est GFR (MDRD) Non-Af 90, BUN/Creatinine Ratio 41.9 H, Glucose 92, Calcium 7.7 L, Total Bilirubin 0.50, AST 23, ALT 11 L, Alkaline Phosphatase 184 H, Total Protein 5.0 L, Albumin 1.0 L, Globulin 4.0, Albumin/Globulin Ratio 0.2 L 07/31/22 03:10: PT 16.5 H, INR 1.4, APTT 30.2, Fibrinogen 842 H Micro: Microbiology 07/28/22 19:52 Wound - Abdominal Gram Stain - Final 07/28/22 19:52 Wound - Abdominal Wound Culture - Preliminary Pseudomonas aeroginosa GPC Poss Enterococcus sp 07/28/22 19:52 Wound - Abdominal Anaerobic Culture - Preliminary Checking for anaerobes, further studies to follow. ABG Data ABG results: ABG 07/30/22 19:14 Specimen Type ART Sample Site L Radial pH 7.34 L Bicarbonate Actual 16.0 L Total CO2 17 Base Excess -10 L O2 Saturation 100 H O2 % 60 ABG pCO2 29.7 L ABG pO2 231 H Luis Test N/A Respiration Rate 14 O2 Delivery Device Adult Vent Vent Mode AC Tidal Volume 450 POC PEEP 5 Radiology Impression Abdomen/Pelvis CT 07/30/22 11:28 IMPRESSION: Larger epididymis change with evidence of air in the deep subcutaneous tissues overlying the left flank extending down into the lower left pelvic and central regions as described. Necrotizing fasciitis should be ruled out. No evidence of abscess or fluid collection for drainage. N.B. : The above Results were Read Back by Jonnathan Blair MD to Jose Manuel Munoz [id number], and understanding confirmed on 07/30/2022 12:40:30 (ET). Electronically Signed: Jonnathan Blair MD at 12:24 EST , ADDENDUM: 07/30/22 1240 IMPRESSION: Large edematous change with evidence of air in the deep subcutaneous tissues overlying the left flank extending down into the left lower pelvis and central region as described. Necrotizing fasciitis should be ruled out. No evidence of abscess or fluid collection for drainage at this time. Electronically Signed: Jonnathan Blair MD at 12:34 EST , ADDENDUM: 07/30/22 1247 IMPRESSION: Large edematous change with evidence of air in the deep subcutaneous tissues overlying the left flank extending down into the left lower pelvis and central region as described. Necrotizing fasciitis should be ruled out. No evidence of abscess or fluid collection for drainage at this time. Electronically Signed: Jonnathan Blair MD at 12:34 EST , N.B. : The above Results were Read Back by Jonnathan Blair MD to Jose Manuel Munoz [id number], and understanding confirmed on 07/30/2022 12:40:30 (ET). ADDENDUM: 07/30/22 1340 IMPRESSION: Large edematous change with evidence of air in the deep subcutaneous tissues overlying the left flank extending down into the left lower pelvis and central region as described. Necrotizing fasciitis should be ruled out. No evidence of abscess or fluid collection for drainage at this time. Electronically Signed: Jonnathan Blair MD at 12:34 EST , N.B. : The above Results were Read Back by Jonnathan Blair MD to Jose Manuel Munoz [id number], RN, and understanding confirmed on 07/30/2022 12:40:30 (ET). Chest X-Ray 07/30/22 16:40 IMPRESSION: No acute radiographic abnormalities. Endotracheal tube in place with tip 3.2 cm above the tomy. Right IJ central venous catheter with tip in the low SVC. Electronically Signed: Tarik Valencia MD at 17:50 EST , KUB X-Ray 07/30/22 21:45 IMPRESSION: OG tube with tip in the stomach. Electronically Signed: Tarik Valencia MD at 23:14 EST , KUB X-Ray 07/30/22 21:55 IMPRESSION: OG tube is coiled in the stomach. Electronically Signed: Tarik Valencia MD at 23:13 EST , Charges/Coding Visit Charges Inpatient E&M: 72201 Init Hosp L3
--- NOTE | 2022-07-31 10:38 | PN.OBGYN_ITS ---
Subjective Subjective Patient awake due to self extubating herself overnight. Patient denies any chest pain or shortness of breath. Pain is increased and she is willing to take additional pain medications. Afebrile Objective Data Objective Data Vital Signs: Vital Signs Temp Pulse Resp BP Pulse Ox O2 Del Method O2 Flow Rate 100.7 F H 113 H 22 H 92/60 95 Room Air 2 07/31/22 08:00 07/31/22 09:00 07/31/22 09:00 07/31/22 09:00 07/31/22 09:00 07/31/22 09:00 07/31/22 05:00 FiO2 25 07/30/22 23:00 Oxygen Flow Rate (L/min) 2 Oxygen Delivery Method Room Air Weight: 267 lb 13.786 oz Body Mass Index (BMI) 46.9 Intake & Output: Intake and Output for Last 24 Hours 07/29/22 07/30/22 07/31/22 23:59 23:59 23:59 Intake Total 4547.5 / 4547.5 3527.51 / 3527.51 2492.5 / 2492.5 Output Total 1475 / 1475 Balance 4547.5 / 4547.5 3527.51 / 2477.51 1017.5 / 1017.5 Lab / Micro Data Result Diagrams: 07/31/22 03:10 07/31/22 03:10 Labs: Laboratory Results - last 24 hr 07/30/22 03:51: Diff Path Review Reviewed 07/30/22 18:15: Total Creatine Kinase 280 H, Triglycerides 114 07/30/22 19:55: Blood Type B POSITIVE, Antibody Screen NEGATIVE, Crossmatch See Detail 07/30/22 : Vancomycin Trough 7.5 07/30/22 : Blood Type Cancelled, Antibody Screen Cancelled, Crossmatch See Detail 07/30/22 : WBC 11.2 H, RBC 3.86 L, Hgb 9.0 L, Hct 31.2 L, MCV 80.8 L, MCH 23.3 L , MCHC 28.8 L, RDW Std Deviation 71.9 H, RDW Coeff of Robyn 24.9 H, Plt Count 368, MPV 10.5, Neut % (Auto) Not Reportable, Absolute Neuts (auto) 9.2 H, Absolute Lymphs (auto) 1.34, Total Counted 100, Neutrophils % (Manual) 75 H, Band Neutrophils % 7 H, Lymphocytes % (Manual) 12 L, Monocytes % (Manual) 2, Union myelocytes % 1, Myelocytes % 3 H, Diff Path Review May foll, Toxic Granulation 1+, Platelet Estimate ADEQUATE, Anisocytosis 2+, Microcytosis 1+, Macrocytosis 1+ 07/31/22 03:10: WBC 10.6, RBC 3.42 L, Hgb 8.1 L, Hct 27.5 L, MCV 80.4 L, MCH 23.7 L, MCHC 29.5 L, RDW Std Deviation 72.9 H, RDW Coeff of Robyn 25.2 H, Plt Count 407, MPV 10.3, Neut % (Auto) Not Reportable, Absolute Neuts (auto) 7.6, Absolute Lymphs (auto) 1.38, Total Counted 100, Neutrophils % (Manual) 67, Band Neutrophils % 4, Lymphocytes % (Manual) 13 L, Monocytes % (Manual) 5, Metam yelocytes % 1, Myelocytes % 10 H, Diff Path Review May foll, Platelet Estimate ADEQUATE, Anisocytosis 1+, Microcytosis 1+ 07/31/22 03:10: Sodium 146 H, Potassium 4.2, Chloride 120 H, Carbon Dioxide 18.0 L, Anion Gap 8, BUN 33 H, Creatinine 0.79, Estim Creat Clear Calc 83.79, Est GFR (MDRD) Af Amer 108, Est GFR (MDRD) Non-Af 90, BUN/Creatinine Ratio 41.9 H, Glucose 92, Calcium 7.7 L, Total Bilirubin 0.50, AST 23, ALT 11 L, Alkaline Phosphatase 184 H, Total Protein 5.0 L, Albumin 1.0 L, Globulin 4.0, Albumin/ Globulin Ratio 0.2 L 07/31/22 03:10: PT 16.5 H, INR 1.4, APTT 30.2, Fibrinogen 842 H Micro: Microbiology 07/28/22 19:52 Wound - Abdominal Gram Stain - Final 07/28/22 19:52 Wound - Abdominal Wound Culture - Preliminary Pseudomonas aeroginosa GPC Poss Enterococcus sp 07/28/22 19:52 Wound - Abdominal Anaerobic Culture - Preliminary Checking for anaerobes, further studies to follow. ABG Data ABG results: ABG 01/20/23 19:14 Specimen Type ART Sample Site L Radial pH 7.34 L Bicarbonate Actual 16.0 L Total CO2 17 Base Excess -10 L O2 Saturation 100 H O2 % 60 ABG pCO2 29.7 L ABG pO2 231 H Luis Test N/A Respiration Rate 14 O2 Delivery Device Adult Vent Vent Mode AC Tidal Volume 450 POC PEEP 5 Radiography Diagnostic Testing: Radiology Impression Abdomen/Pelvis CT 07/30/22 11:28 IMPRESSION: Larger epididymis change with evidence of air in the deep subcutaneous tissues overlying the left flank extending down into the lower left pelvic and central regions as described. Necrotizing fasciitis should be ruled out. No evidence of abscess or fluid collection for drainage. N.B. : The above Results were Read Back by Jonnathan Blair MD to Jose Manuel Munoz [id number], and understanding confirmed on 07/30/2022 12:40:30 (ET). Electronically Signed: Jonnathan Blair MD at 12:24 EST , ADDENDUM: 07/30/22 1240 IMPRESSION: Large edematous change with evidence of air in the deep subcutaneous tissues overlying the left flank extending down into the left lower pelvis and central region as described. Necrotizing fasciitis should be ruled out. No evidence of abscess or fluid collection for drainage at this time. Electronically Signed: Jonnathan Blair MD at 12:34 EST , ADDENDUM: 07/30/22 1247 IMPRESSION: Large edematous change with evidence of air in the deep subcutaneous tissues overlying the left flank extending down into the left lower pelvis and central region as described. Necrotizing fasciitis should be ruled out. No evidence of abscess or fluid collection for drainage at this time. Electronically Signed: Jonnathan Blair MD at 12:34 EST , N.B. : The above Results were Read Back by Jonnathan Blair MD to Jose Manuel Munoz [phone], RN, and understanding confirmed on 07/30/2022 12:40:30 (ET). ADDENDUM: 07/30/22 1340 IMPRESSION: Large edematous change with evidence of air in the deep subcutaneous tissues overlying the left flank extending down into the left lower pelvis and central region as described. Necrotizing fasciitis should be ruled out. No evidence of abscess or fluid collection for drainage at this time. Electronically Signed: Jonnathan Blair MD at 12:34 EST , N.B. : The above Results were Read Back by Jonnathan Blair MD to Jose Manuel Munoz [id number], RN, and understanding confirmed on 07/30/2022 12:40:30 (ET). Chest X-Ray 07/30/22 16:40 IMPRESSION: No acute radiographic abnormalities. Endotracheal tube in place with tip 3.2 cm above the tomy. Right IJ central venous catheter with tip in the low SVC. Electronically Signed: Tarik Valencia MD at 17:50 EST , KUB X-Ray 07/30/22 21:45 IMPRESSION: OG tube with tip in the stomach. Electronically Signed: Tarik Valencia MD at 23:14 EST , KUB X-Ray 07/30/22 21:55 IMPRESSION: OG tube is coiled in the stomach. Electronically Signed: Tarik Valencia MD at 23:13 EST , Physical Exam Const alert and no apparent distress Resp normal respiratory effort and normal air movement GI GI Narrative: Vivian band intact over open wound packed with Kerlix appropriately tender to palpation no new edema or erythema noted. Extremity normal to inspection Skin Skin Narrative: see GI narrative Psych Appearance: grossly normal and appropriate Assessment & Plan (1) Necrotizing cellulitis: COMMENT: left lower abdomen, s/p abdominal wall debridement and resection by dr palomares, IV meropenum, vancomycin, clindamycin. culture growing pseudomonas and now possible Enterococcus. Additional exam under anesthesia planned today (2) Acute renal failure: COMMENT: Likely secondary to infection and dehydration. Initial creatinine over 2 and now down to 1. Improving. (3) delivery delivered: COMMENT: 07/12- SROM 38 SM [facility] (4) History of gastric bypass: (5) Cellulitis of skin: COMMENT: IV Vanc and meropenum. medicine consulted and following. right incisional drainage, wound center consulted. await continuing culture results, but will get repeat ct scan with IR consultation due to increasing edema and erythema on left flank (6) Wound infection following section, : COMMENT: see cellulitis a/p. PLAN: Plan patient is 3 weeks post with necrotizing fasciitis, acute renal failure - icu admission but possible floor transfer after surgical reevaluation - heparain for dvt prophylaxis- held due to surgical debridement, scds on now. - h/o gastric sleeve surgery, morbid obesity - IV ABx continued while awaiting final culture results see a/p comments for additional plan information Charges/Coding Visit Charges Inpatient E&M: 05235 Init Hosp L3
--- NOTE | 2022-07-31 13:08 | PCM.OPRPT ---
Report of Operation Date of Procedure: 07/31/22 Pre-Operative Diagnosis: necrotizing wound infection Post-Operative Diagnosis: same Surgery/Procedure Performed:: repeat debridement of lower abdominal necrotizing wound infection Surgeon: Ameena Brody production support specialist: Lise Grimes production support specialist: Risa Pinto Type of Anesthesia: General/Supplemental Anesthesiologist: Evi Day Special Medications: on previous abx Specimen's removed: lower abdominal debridement tissue Estimated Blood Loss (mL): 20 cc Description of Procedure: Pt was bought in OR room, placed supine on table.? Time out completed verifying correct, patient, procedure, positioning, special equipment prior to procedure.? General anesthesia was induced.? Previous wound dressing removed and wound was cleaned draped with Betadine. Additional necrotic tissue was debrided to grossly normal tissue throughout the large 40 cm x 18 cm x 5 cm wound. Wound was copiously irrigated with saline and also with one bottle of irrisept and rinsed with saline after irrisept.? Hemostasis was achieved with electrocautery.? Wound was dressed with Betadine soaked kerlix x 3 with dry kerlix x 2 over the top and ABD pads and tape. Abdominal binder placed. Pt was extubated. Pt annie procedure well and was taken to ICU. Complications none
[2022-07-31] MEDS: Heparin Injection (Vial) 5,000 UNIT/ML VIAL 5000 UNIT SC ×2 (14:08→20:35)
[2022-07-31] MEDS: HYDROmorphone 1 MG/ML Syringe IV (20:22)
[2022-07-31 23:40] LABS: Hematocrit 26.7 % (37-47); Hemoglobin 7.8 g/dL (12.0-15.0); Mean Corp Hgb Conc 29.2 g/dL (32-36); Mean Corpuscular Hgb 23.4 pg (27.0-32.0); Mean Corpuscular Volume 80.2 fL (81-99); POSITIVE COUNT YES; POSITIVE MORPHOLOGY YES; Platelet Count 408 K/mm3 (150-450); RBC Distribution Width CV 25.2 % (11.6-14.6); RBC Distribution Width SD 72.7 fl (35.1-43.9); Red Blood Count 3.33 M/mm3 (4.2-5.4); White Blood Count 15.1 K/mm3 (4.4-11.0)
[2022-07-31 23:52] LABS: Differential Indicated MANUAL DIFF
[2022-08-01] VITALS (15 sets, daily range): BP systolic 100–130; BP diastolic 57–95; PULSE 98–115; RESP 15–22; TEMP 36.6–37.2; O2SAT 96–100
[2022-08-01 00:23] LABS: Eosinophil 2 % (0-5); Lymphocyte 9 % (19-41); Metamyelocyte 6 % (0-1); Monocyte 8 % (0-10); Myelocyte 1 % (0-0); Neutrophil-Band 2 % (0-5); Neutrophil-Segmented 72 % (47-70); Total Cells Counted 100 (MANUAL DIFF)
[2022-08-01 00:24] LABS: Absolute Lymphocyte Count 1.36 X10^3/uL (0.83-4.51); Absolute Neutrophil Count 12.2 X10^3/uL (2.0-7.7); Lymphocyte # 1.36 X10^3/ul (0.83-4.51); Neutrophil # 12.24 X10^3/uL (2.7-7.7); Platelet Estimate ADEQUATE (ADEQ)
[2022-08-01 00:25] LABS: Toxic Granulation 1+
[2022-08-01 00:26] LABS: Anisocytosis 2+; Microcytosis 1+; Ovalocyte RARE
[2022-08-01 00:27] LABS: Hypochromasia 1+
[2022-08-01] MEDS: HYDROmorphone 1 MG/ML Syringe IV ×4 (03:14→18:30)
[2022-08-01 04:36] LABS: Hematocrit 26.7 % (37-47); Hemoglobin 7.7 g/dL (12.0-15.0); Mean Corp Hgb Conc 28.8 g/dL (32-36); Mean Corpuscular Hgb 23.3 pg (27.0-32.0); Mean Corpuscular Volume 80.7 fL (81-99); Mean Platelet Vol. 9.9 fl (6.2-12.0); POSITIVE COUNT YES; POSITIVE MORPHOLOGY YES; Platelet Count 396 K/mm3 (150-450); RBC Distribution Width CV 25.2 % (11.6-14.6); RBC Distribution Width SD 73.3 fl (35.1-43.9); Red Blood Count 3.31 M/mm3 (4.2-5.4); White Blood Count 16.2 K/mm3 (4.4-11.0)
[2022-08-01 04:37] LABS: Differential Indicated MANUAL DIFF
[2022-08-01 04:50] LABS: Anion Gap 7 (5-15); BUN 20 mg/dL (7-18); BUN/Creat Ratio 35.2 RATIO (10-20); Calcium,Total 7.6 mg/dL (8.5-10.1); Chloride 118 mmol/L (98-107); Creatinine, Serum 0.57 mg/dL (0.55-1.02); EST Glomerular Filtration Rate 130 mL/min (>60); Est Glom Filt Rate - Afr Amer 158 mL/min (>60); Estimated Creatinine Clearance 116.13 ml/min; Glucose 93 mg/dL (74-106); Potassium 4.8 mmol/L (3.5-5.1); Sodium Level 143 mmol/L (136-145)
[2022-08-01] MEDS: oxyCODONE 5 MG Tablet PO (05:02)
[2022-08-01] MEDS: Clindamycin 600 MG/50 ML BAG 100 MG IV ×3 (05:05→17:40)
[2022-08-01 05:12] LABS: Lymphocyte 9 % (19-41); Metamyelocyte 6 % (0-1); Monocyte 1 % (0-10); Myelocyte 1 % (0-0); Neutrophil-Band 2 % (0-5); Neutrophil-Segmented 81 % (47-70); Total Cells Counted 100 (MANUAL DIFF)
[2022-08-01 05:13] LABS: Absolute Lymphocyte Count 1.45 X10^3/uL (0.83-4.51); Lymphocyte # 1.45 X10^3/ul (0.83-4.51)
[2022-08-01 05:14] LABS: Absolute Neutrophil Count 13.1 X10^3/uL (2.0-7.7); Neutrophil # 13.09 X10^3/uL (2.7-7.7); Platelet Estimate ADEQUATE (ADEQ)
[2022-08-01 05:15] LABS: Anisocytosis 2+; Microcytosis 1+; Ovalocyte RARE; Polychromasia RARE
--- NOTE | 2022-08-01 05:15 | NURSING ---
Pt's wound dressing moderately soaked through with betadine and serosanguinous drainage on L side. Reinforced with 2 ABDs and medipore tape, abdominal binder changed. Bed linens and gown changed. Pt tolerated fairly well. PRN oxycodone given for pain.
[2022-08-01 05:16] LABS: Toxic Granulation 1+
[2022-08-01] MEDS: Potassium Chloride 40 MEQ in 0.45% Normal Saline 1,000 ML 150 MEQ IV (05:30)
[2022-08-01 06:32] LABS: Vancomycin, Trough Level 13.2 ug/mL (5.0-15.0)
--- NOTE | 2022-08-01 06:48 | PCM.RX.CS ---
Consult Pharmacy has been consulted to manage selected antiobiotic: Vancomycin Type of Consult: Follow-up Suspected Infection: Skin/Soft tissue Prior Doses of Antibiotics Received/Current Regimen: Medications Vancomycin HCl 1,250 mg/ (Sodium Chloride) 275 mls @ 167 mls/hr IV Q12H MARIA DEL CARMEN Last Admin: 08/01/22 06:39 Dose: 167 mls/hr Labs: Sodium 143 mmol/L (136-145) 08/01/22 04:30 Potassium 4.8 mmol/L (3.5-5.1) 08/01/22 04:30 Chloride 118 mmol/L (98-107) H 08/01/22 04:30 Carbon Dioxide 18.0 mmol/L (21.0-32.0) L 08/01/22 04:30 Anion Gap 7 (5-15) 08/01/22 04:30 BUN 20 mg/dL (7-18) H 08/01/22 04:30 Creatinine 0.57 mg/dL (0.55-1.02) 08/01/22 04:30 Est GFR (MDRD) Af Amer 158 mL/min (>60) 08/01/22 04:30 Est GFR (MDRD) Non-Af 130 mL/min (>60) 08/01/22 04:30 BUN/Creatinine Ratio 35.2 RATIO (10-20) H 08/01/22 04:30 Glucose 93 mg/dL (74-106) 08/01/22 04:30 Vancomycin Trough 13.2 ug/mL (5.0-15.0) 08/01/22 05:40 Microbiology: Microbiology 07/30/22 15:22 Tissue - Abdominal Gram Stain - Final 07/30/22 15:22 Tissue - Abdominal Wound Culture - Preliminary No growth-Final to follow 07/30/22 14:55 Wound Abcess - Abdominal Gram Stain - Final 07/28/22 19:52 Wound - Abdominal Gram Stain - Final 07/28/22 19:52 Wound - Abdominal Wound Culture - Preliminary Pseudomonas aeroginosa GPC Poss Enterococcus sp 07/28/22 19:52 Wound - Abdominal Anaerobic Culture - Preliminary Checking for anaerobes, further studies to follow. Weight used for dosin.6 kg Estimated Creatinine Clearance: >120 Goal Trough: 10-15 mcg/mL Pharmacy Plan for Drug Dosing: Vancomycin trough level of 13.2 (drawn 11 hrs post-dose) was within the target range of 10-15. Will continue dosing at 1250mg q12h and re-draw a level in two days. Pharmacy Service will continue to monitor and adjust dosing as required. Follow-Up Labs: Trough Vancomycin Labs to be done on [date and time ordered]: 08/03/22 @1538
--- NOTE | 2022-08-01 07:17 | PN.CC_ITS ---
Assessment & Plan Assessment/Plan (1) Necrotizing cellulitis: (2) Acute renal failure: PLAN: Plan RECOMMENDATIONS: 1. Continue antibiotics as ordered 2. Bolus with LR if necessary 3. Consider empiric AutoPap with continuous pulse ox with sleep 4. Likely okay to be transferred to the floor 5. Hemodynamically stable on room air. Will sign off from a critical care perspective IMPRESSIONS: 1. Sepsis secondary to necrotizing fasciitis following postop day #2 Evidence of endorgan damage by acute kidney injury. Patient reportedly tolerated this well. Patient was able to tolerate room air overnight after being self extubated. Patient went back to the OR yesterday and tolerated this well. Blood pressures are slightly low, but patient is mentating well. Patient may have an element of hypotension secondary to morphine. Patient is on appropriate antibiotics. Patient responding to treatment plan well. 2. Acute kidney injury/Hyperchloremic metabolic acidosis Resolved. Patient presented with a creatinine of 2.36 and has no history of previous renal dysfunction. Patient has responded well to therapy. Patient does have some increased chloride, likely secondary to fluid resuscitation. Recommend using LR or half-normal saline to avoid hyperchloremic metabolic ac idosis progressing 3. Morbid obesity/recent delivery/GERD Complicates care, management, recovery and prognosis. Patient does not have any formal diagnosis of obstructive sleep apnea, but would be at risk, especially in the setting of narcotics dictated by problem #1. Would recommend continuous pulse ox with empiric AutoPap with sleep while patient is requiring narcotic rescue. Okay to continue Subjective Subjective Patient did okay overnight. Patient did go back to the OR yesterday, but tolerated this well. Abdominal pain, but does not believe this is significantly changed compared to previous. Objective Data Objective Data Vital Signs: Vital Signs Temp Pulse Resp BP Pulse Ox O2 Del Method O2 Flow Rate 36.6 C 111 H 18 130/90 H 98 Room Air 2 08/01/22 06:00 08/01/22 07:00 08/01/22 07:00 08/01/22 07:00 08/01/22 07:00 08/01/22 07:00 07/31/22 05:00 FiO2 25 07/30/22 23:00 Oxygen Flow Rate (L/min) 2 Oxygen Delivery Method Room Air Weight: 121.6 kg Body Mass Index (BMI) 47.4 Intake & Output: Intake and Output for Last 24 Hours 07/30/22 07/31/22 08/01/22 23:59 23:59 23:59 Intake Total 3527.51 / 3527.51 5485.0 / 5485.0 1142.5 / 1142.5 Output Total 2625 / 2625 Balance 3527.51 / 2477.51 2860.0 / 2860.0 1142.5 / 1142.5 Lab / Micro Data Attestation: I reviewed the patient's lab results. Result Diagrams: 08/01/22 04:30 08/01/22 04:30 Labs: Laboratory Results - last 24 hr 07/31/22 23:00: WBC 15.1 H, RBC 3.33 L, Hgb 7.8 L, Hct 26.7 L, MCV 80.2 L, MCH 23.4 L, MCHC 29.2 L, RDW Std Deviation 72.7 H, RDW Coeff of Robyn 25.2 H, Plt Count 408, MPV 10.0, Neut % (Auto) Not Reportable, Absolute Neuts (auto) 12.2 H, Absolute Lymphs (auto) 1.36, Total Counted 100, Neutrophils % (Manual) 72 H, Band Neutrophils % 2, Lymphocytes % (Manual) 9 L, Monocytes % (Manual) 8, Eosinophils % (Manual) 2, Metamyelocytes % 6 H, Myelocytes % 1 H, Diff Path Review May foll, Toxic Granulation 1+, Platelet Estimate ADEQUATE, Hypochromasia 1+, Anisocytosis 2+, Microcytosis 1+, Ovalocytes RARE 08/01/22 04:30: Sodium 143, Potassium 4.8, Chloride 118 H, Carbon Dioxide 18.0 L , Anion Gap 7, BUN 20 H, Creatinine 0.57, Estim Creat Clear Calc 116.13, Est GFR (MDRD) Af Amer 158, Est GFR (MDRD) Non-Af 130, BUN/Creatinine Ratio 35.2 H, Glucose 93, Calcium 7.6 L 08/01/22 04:30: WBC 16.2 H, RBC 3.31 L, Hgb 7.7 L, Hct 26.7 L, MCV 80.7 L, MCH 23.3 L, MCHC 28.8 L, RDW Std Deviation 73.3 H, RDW Coeff of Robyn 25.2 H, Plt Count 396, MPV 9.9, Neut % (Auto) Not Reportable, Absolute Neuts (auto) 13.1 H, Absolute Lymphs (auto) 1.45, Total Counted 100, Neutrophils % (Manual) 81 H, Band Neutrophils % 2, Lymphocytes % (Manual) 9 L, Monocytes % (Manual) 1, [place] myelocytes % 6 H, Myelocytes % 1 H, Diff Path Review May foll, Toxic Granulation 1+, Platelet Estimate ADEQUATE, Polychromasia RARE, Anisocytosis 2+, Microcytosis 1+, Ovalocytes RARE 08/01/22 05:40: Vancomycin Trough 13.2 Micro: Microbiology 07/30/22 15:22 Tissue - Abdominal Gram Stain - Final 07/30/22 15:22 Tissue - Abdominal Wound Culture - Preliminary No growth-Final to follow 07/30/22 14:55 Wound Abcess - Abdominal Gram Stain - Final 07/28/22 19:52 Wound - Abdominal Gram Stain - Final 07/28/22 19:52 Wound - Abdominal Wound Culture - Preliminary Pseudomonas aeroginosa GPC Poss Enterococcus sp 07/28/22 19:52 Wound - Abdominal Anaerobic Culture - Preliminary Checking for anaerobes, further studies to follow. Physical Exam Const alert, oriented x3 and no apparent distress General Appearance: in distress Positive for mild (Pain secondary to abdomen) HEENT normocephalic and head/scalp atraumatic HEENT Narrative: Moist mucous membranes Eyes PERRL, EOMs intact bilaterally, conjunctivae normal and no scleral icterus Neck full ROM and no lymphadenopathy Resp normal respiratory effort and normal air movement Effort and Inspection: able to speak in complete sentences Auscultation: Negative for rales, rhonchi or wheezes Cardio regular rhythm, S1 normal heart sound, S2 normal heart sound, no murmurs, no rub and no gallops Rate: tachycardic GI GI Narrative: Large open surgical wound with packing noted. Binder in place. Extremity normal to inspection and no clubbing, cyanosis or edema Skin Skin Narrative: See abdomen. Lower extremities wrapped Neuro oriented x3, CN's II-XII intact bilaterally and moves all extremities Psych cooperative and affect normal Appearance: grossly normal and appropriate Charges/Coding Visit Charges Inpatient E&M: 37837 Subs Hosp L2
[2022-08-01] MEDS: oxyCODONE 5 MG Tablet 10 MG PO ×4 (07:57→21:44)
--- NOTE | 2022-08-01 09:23 | PN.SURG_ITS ---
Subjective Subjective Pt annie clears, wbc 16 w 2 bands Objective Data Objective Data Vital Signs: Vital Signs Temp Pulse Resp BP Pulse Ox O2 Del Method O2 Flow Rate 98.2 F 112 H 20 H 119/95 H 96 Room Air 2 08/01/22 08:00 08/01/22 08:00 08/01/22 08:00 08/01/22 08:00 08/01/22 08:00 08/01/22 08:00 07/31/22 05:00 FiO2 25 07/30/22 23:00 Oxygen Flow Rate (L/min) 2 Oxygen Delivery Method Room Air Weight: 268 lb 1.314 oz Body Mass Index (BMI) 47.4 Intake & Output: Intake and Output for Last 24 Hours 07/30/22 07/31/22 08/01/22 23:59 23:59 23:59 Intake Total 3527.51 / 3527.51 5485.0 / 5485.0 1537.5 / 1537.5 Output Total 2625 / 2625 Balance 3527.51 / 2477.51 2860.0 / 2860.0 1537.5 / 1537.5 Lab / Micro Data Result Diagrams: 08/01/22 04:30 08/01/22 04:30 Labs: Laboratory Results - last 24 hr 07/31/22 23:00: WBC 15.1 H, RBC 3.33 L, Hgb 7.8 L, Hct 26.7 L, MCV 80.2 L, MCH 23.4 L, MCHC 29.2 L, RDW Std Deviation 72.7 H, RDW Coeff of Robyn 25.2 H, Plt Count 408, MPV 10.0, Neut % (Auto) Not Reportable, Absolute Neuts (auto) 12.2 H, Absolute Lymphs (auto) 1.36, Total Counted 100, Neutrophils % (Manual) 72 H, Band Neutrophils % 2, Lymphocytes % (Manual) 9 L, Monocytes % (Manual) 8, Eosinophils % (Manual) 2, Metamyelocytes % 6 H, Myelocytes % 1 H, Diff Path Review May foll, Toxic Granulation 1+, Platelet Estimate ADEQUATE, Hypochromasia 1+, Anisocytosis 2+, Microcytosis 1+, Ovalocytes RARE 08/01/22 04:30: Sodium 143, Potassium 4.8, Chloride 118 H, Carbon Dioxide 18.0 L , Anion Gap 7, BUN 20 H, Creatinine 0.57, Estim Creat Clear Calc 116.13, Est GFR (MDRD) Af Amer 158, Est GFR (MDRD) Non-Af 130, BUN/Creatinine Ratio 35.2 H, Glucose 93, Calcium 7.6 L 08/01/22 04:30: WBC 16.2 H, RBC 3.31 L, Hgb 7.7 L, Hct 26.7 L, MCV 80.7 L, MCH 23.3 L, MCHC 28.8 L, RDW Std Deviation 73.3 H, RDW Coeff of Robyn 25.2 H, Plt Count 396, MPV 9.9, Neut % (Auto) Not Reportable, Absolute Neuts (auto) 13.1 H, Absolute Lymphs (auto) 1.45, Total Counted 100, Neutrophils % (Manual) 81 H, Band Neutrophils % 2, Lymphocytes % (Manual) 9 L, Monocytes % (Manual) 1, Metamyelocytes % 6 H, Myelocytes % 1 H, Diff Path Review May foll, Toxic Granulation 1+, Platelet Estimate ADEQUATE, Polychromasia RARE, Anisocytosis 2+, Microcytosis 1+, Ovalocytes RARE 08/01/22 05:40: Vancomycin Trough 13.2 Micro: Microbiology 07/28/22 19:52 Wound - Abdominal Gram Stain - Final 07/28/22 19:52 Wound - Abdominal Wound Culture - Final Pseudomonas aeroginosa Enterococcus faecalis 07/28/22 19:52 Wound - Abdominal Anaerobic Culture - Preliminary Gram negative jerald Anaerobic cocci 07/30/22 15:22 Tissue - Abdominal Gram Stain - Final 07/30/22 15:22 Tissue - Abdominal Wound Culture - Preliminary No growth-Final to follow 07/30/22 14:55 Wound Abcess - Abdominal Gram Stain - Final Physical Exam Const oriented x3 Resp normal respiratory effort Cardio regular rate GI GI Narrative: Abdomen: Soft, nondistended, tender lower abd wound--packing removed and redressed with wet to drys--tissue appears healthy no need for further debridement Assessment & Plan Assessment/Plan (1) Necrotizing cellulitis: PLAN: Plan Wound changed with wet to dry dressing- no further debridement necessary currently. will do dressing changes BID and probably wound vac tomorrow. Continue meropenem/anya, Dr. Grimes added back clindamycin- as WBC increased to 16 ok for regular diet Ameena Brody M.D. Pager: [phone] [facility] [address] [place] [address], [facility], [address] [place] [address] Office: [phone]
[2022-08-01] MEDS: 0.9% Saline Lock 10 ML Syringe IV ×2 (09:34→10:21)
--- NOTE | 2022-08-01 11:44 | PN.OBGYN_ITS ---
Subjective Subjective patient stable this am, increased pain with dressing change but controlled. local dermatitis reaction to tape but otherwise wound improving and will likely be ready for wound vac tomorrow. Objective Data Objective Data Vital Signs: Vital Signs Temp Pulse Resp BP Pulse Ox O2 Del Method O2 Flow Rate 98.2 F 106 H 15 100/66 96 Room Air 2 08/01/22 08:00 08/01/22 10:00 08/01/22 10:00 08/01/22 10:00 08/01/22 10:00 08/01/22 10:00 07/31/22 05:00 FiO2 25 07/30/22 23:00 Oxygen Flow Rate (L/min) 2 Oxygen Delivery Method Room Air Weight: 268 lb 1.314 oz Body Mass Index (BMI) 47.4 Intake & Output: Intake and Output for Last 24 Hours 07/30/22 07/31/22 08/01/22 23:59 23:59 23:59 Intake Total 3527.51 / 3527.51 5485.0 / 5485.0 2320.0 / 2320.0 Output Total 2625 / 2625 Balance 3527.51 / 2477.51 2860.0 / 2860.0 2320.0 / 2320.0 Lab / Micro Data Result Diagrams: 08/01/22 04:30 08/01/22 04:30 Labs: Laboratory Results - last 24 hr 07/31/22 23:00: WBC 15.1 H, RBC 3.33 L, Hgb 7.8 L, Hct 26.7 L, MCV 80.2 L, MCH 23.4 L, MCHC 29.2 L, RDW Std Deviation 72.7 H, RDW Coeff of Robyn 25.2 H, Plt Count 408, MPV 10.0, Neut % (Auto) Not Reportable, Absolute Neuts (auto) 12.2 H, Absolute Lymphs (auto) 1.36, Total Counted 100, Neutrophils % (Manual) 72 H, Band Neutrophils % 2, Lymphocytes % (Manual) 9 L, Monocytes % (Manual) 8, Eosinophils % (Manual) 2, Metamyelocytes % 6 H, Myelocytes % 1 H, Diff Path Review May foll, Toxic Granulation 1+, Platelet Estimate ADEQUATE, Hypochromasia 1+, Anisocytosis 2+, Microcytosis 1+, Ovalocytes RARE 08/01/22 04:30: Sodium 143, Potassium 4.8, Chloride 118 H, Carbon Dioxide 18.0 L , Anion Gap 7, BUN 20 H, Creatinine 0.57, Estim Creat Clear Calc 116.13, Est GFR (MDRD) Af Amer 158, Est GFR (MDRD) Non-Af 130, BUN/Creatinine Ratio 35.2 H, Glucose 93, Calcium 7.6 L 08/01/22 04:30: WBC 16.2 H, RBC 3.31 L, Hgb 7.7 L, Hct 26.7 L, MCV 80.7 L, MCH 23.3 L, MCHC 28.8 L, RDW Std Deviation 73.3 H, RDW Coeff of Robyn 25.2 H, Plt Count 396, MPV 9.9, Neut % (Auto) Not Reportable, Absolute Neuts (auto) 13.1 H, Absolute Lymphs (auto) 1.45, Total Counted 100, Neutrophils % (Manual) 81 H, Band Neutrophils % 2, Lymphocytes % (Manual) 9 L, Monocytes % (Manual) 1, Metamyelocytes % 6 H, Myelocytes % 1 H, Diff Path Review May foll, Toxic Granulation 1+, Platelet Estimate ADEQUATE, Polychromasia RARE, Anisocytosis 2+, Microcytosis 1+, Ovalocytes RARE 08/01/22 05:40: Vancomycin Trough 13.2 Micro: Microbiology 07/30/22 15:22 Tissue - Abdominal Gram Stain - Final 07/30/22 15:22 Tissue - Abdominal Wound Culture - Final Enterobacter cloacae complex 07/30/22 14:55 Wound Abcess - Abdominal Gram Stain - Final 07/30/22 14:55 Wound Abcess - Abdominal Wound Culture - Preliminary No growth-Final to follow 07/28/22 19:52 Wound - Abdominal Gram Stain - Final 07/28/22 19:52 Wound - Abdominal Wound Culture - Final Pseudomonas aeroginosa Enterococcus faecalis 07/28/22 19:52 Wound - Abdominal Anaerobic Culture - Preliminary Gram negative jerald Anaerobic cocci ROS Constitutional Constitutional: Reports as per HPI; Denies chills ENT HEENT: Denies dizziness Respiratory/Chest Respiratory/Chest: Denies chest tightness or cough Physical Exam Const alert and no apparent distress Constitutional Narrative: drowsy but arousable, recent dilaudid administration Resp normal respiratory effort and normal air movement GI GI Narrative: binder on with packing and tape intact, minimal erythema where preivous tape removed appropriate TTP. Extremity normal to inspection Skin Skin Narrative: see GI narrative Psych Appearance: grossly normal and appropriate Assessment & Plan (1) Necrotizing cellulitis: COMMENT: left lower abdomen, s/p surgical abdominal wall debridement x [address] palomares, IV meropenum, vancomycin, clindamycin. culture growing pseudomonas, enterobacter, and Enterococcus. (2) Acute renal failure: COMMENT: Likely secondary to infection and dehydration. Initial creatinine over 2 and now down to 1. Improving. (3) delivery delivered: COMMENT: 07/12- SROM 38 SM [facility]CS [facility] [place] (4) History of gastric bypass: (5) Cellulitis of skin: COMMENT: IV Vanc and meropenum, clindamycin added with development of necrotizing fasciitis (6) Wound infection following section, : COMMENT: see cellulitis a/p. PLAN: Plan patient is 3 weeks post with necrotizing infection, acute renal failure - icu admission but stable for floor transfer today - heparin for dvt prophylaxis - h/o gastric sleeve surgery, morbid obesity - IV ABx continued while awaiting final culture results, pseudomonas, enterobacter, enterococcus so far. discussed with pharmacy and will continue current regimen see a/p comments for additional plan information Charges/Coding Visit Charges Inpatient E&M: 06316 [facility] L3
[2022-08-01] MEDS: Polyethylene Glycol 3350 17 GM PACKET PO (12:21)
[2022-08-01] MEDS: Ensure Plus High Protein 120 ML LIQUID PO ×2 (14:13→21:45)
[2022-08-01] MEDS: Heparin Injection (Vial) 5,000 UNIT/ML VIAL 5000 UNIT SC ×2 (14:16→21:45)
[2022-08-01] MEDS: Juven (unflavored) Packet 1 PACKET PO (15:11)
[2022-08-01] MEDS: Docusate Sodium 100 MG Capsule PO (21:44)
[2022-08-02] VITALS (11 sets, daily range): BP systolic 94–118; BP diastolic 56–85; PULSE 93–122; RESP 18–20; TEMP 36.3–38.5; O2SAT 97–100
[2022-08-02] MEDS: Clindamycin 600 MG/50 ML BAG 100 MG IV ×2 (00:06→07:00)
[2022-08-02] MEDS: oxyCODONE 5 MG Tablet 10 MG PO ×5 (02:41→22:52)
[2022-08-02] MEDS: Heparin Injection (Vial) 5,000 UNIT/ML VIAL 5000 UNIT SC ×3 (07:06→22:50)
[2022-08-02] MEDS: HYDROmorphone 1 MG/ML Syringe IV (07:16)
[2022-08-02] MEDS: 0.9% Saline Lock 10 ML Syringe IV ×5 (07:18→19:16)
--- NOTE | 2022-08-02 07:18 | PN.HOSP_ITS ---
Subjective Subjective Follow-up for wound infection after section. Objective Data Objective Data Vital Signs: Vital Signs Temp Pulse Resp BP Pulse Ox O2 Del Method O2 Flow Rate 98.3 F 96 18 94/56 L 100 Room Air 2 08/02/22 02:36 08/02/22 02:36 08/02/22 02:36 08/02/22 02:36 08/02/22 02:36 08/02/22 02:36 07/31/22 05:00 FiO2 25 07/30/22 23:00 Oxygen Flow Rate (L/min) 2 Oxygen Delivery Method Room Air Weight: 265 lb 3.457 oz Body Mass Index (BMI) 47.4 Intake & Output: Intake and Output for Last 24 Hours 07/31/22 08/01/22 08/02/22 23:59 23:59 23:59 Intake Total 5485.0 / 5485.0 3515.0 / 3515.0 170 / 170 Output Total 2625 / 2625 950 / 1150 200 / 200 Balance 2860.0 / 2860.0 2565.0 / 2365.0 -30 / -30 Lab / Micro Data Result Diagrams: 08/02/22 08:00 08/02/22 08:00 Micro: Microbiology 07/30/22 15:22 Tissue - Abdominal Gram Stain - Final 07/30/22 15:22 Tissue - Abdominal Wound Culture - Final Enterobacter cloacae complex 07/30/22 14:55 Wound Abcess - Abdominal Gram Stain - Final 07/30/22 14:55 Wound Abcess - Abdominal Wound Culture - Preliminary No growth-Final to follow 07/28/22 19:52 Wound - Abdominal Gram Stain - Final 07/28/22 19:52 Wound - Abdominal Wound Culture - Final Pseudomonas aeroginosa Enterococcus faecalis 07/28/22 19:52 Wound - Abdominal Anaerobic Culture - Preliminary Gram negative jerald Anaerobic cocci Physical Exam Narrative Physical exam General: Alert, Oriented x3, Cooperative, morbid obesity BMI 47 kg/m? HEENT: Atraumatic, PERRLA, EOMI, Normocephalic Oral: Oral mucosa moist. No Gingival or Mucosal Lesions/ Ulcerations Neck: Supple, No JVD, Negative Carotid Bruits Lungs: Air entry diminished in bilateral lung bases. No crepitation/rhonchi Cardiovascular: Regular rate, Regular Rhythm, Normal S1, Normal S2, No murmurs Abdomen: Bowel Sounds Present, Soft, Non-Distended. Mild lower abdominal/pelvic tenderness due to wound : Valenzuela catheter present, clear urine no renal angle tenderness. No suprapubic tenderness. Extremities: No edema, Capillary Refill Less than 3 Seconds Skin: Large open operative wound after section. Wound VAC placed. surrounding cellulitis. Musculoskeletal: No Tenderness to Palpation of Joints or Extremities. ROM intact. Neurological: Cranial nerves II-XII grossly intact, DTR 2+/4 and Symmetrical, Neuro grossly intact Psych/Mental Status: Normal Affect, Appropriate. Assessment & Plan Assessment/Plan (1) Acute renal failure: PLAN: Plan 1. Postoperative wound infection from a on 07/12/2022: Patient is being admitted to [facility] floor under [employer] service. 08/02: Operative tissue gram stain and culture growing Pseudomonas, Enterococcus faecalis, and anaerobic cocci. Patient on vancomycin, meropenem and clindamycin. Patient had fever on 07/31, T-max 100.7 Fahrenheit. ID consult. Discontinue clindamycin. Follow-up final culture report. Wound nurses consulted. Wound photo reviewed shows subcutaneous tissue with fine adherent slough with granulation tissue. Deep debridement was done. Patient has wound VAC placed. Patient had CT abdomen in July 30 which shows large area of edematous change with evidence of air in the deep subcutaneous tissue overlying left flank extending to lower pelvic region. No drainable abscess or fluid. This was being addressed by the surgical [employer] team. T scan from OSH was negative for any large abscess or extension into the abdominal cavity 2. ANGEL most likely prerenal: ANGEL resolved, BUN/creatinine normal. Discontinue IV fluid. 3. Morbid obesity: BMI 47.0 kg/m?. Weight loss counseling done. Patient also has facial hair near the chin therefore might have hyperandrogenism with suspicion of PCOD. Will need outpatient evaluation management by [employer]ER/hospital wellness coordinator DVT: Heparin Charges/Coding Visit Charges Inpatient E&M: 33977 Subs Hosp L2
[2022-08-02 08:11] LABS: Hematocrit 24.5 % (37-47); Hemoglobin 7.1 g/dL (12.0-15.0); Mean Corpuscular Hgb 22.9 pg (27.0-32.0); Mean Platelet Vol. 9.5 fl (6.2-12.0); POSITIVE COUNT YES; POSITIVE MORPHOLOGY YES; Platelet Count 370 K/mm3 (150-450); RBC Distribution Width CV 24.7 % (11.6-14.6); RBC Distribution Width SD 70.6 fl (35.1-43.9); White Blood Count 15.2 K/mm3 (4.4-11.0)
[2022-08-02 08:22] LABS: Differential Indicated MANUAL DIFF
--- NOTE | 2022-08-02 08:32 | PCM.PN.OB ---
Subjective Subjective afebrile overnight, pain controlled, dressing change went well and wound vac to be applied now. Objective Data Objective Data Vital Signs: Vital Signs Temp Pulse Resp BP Pulse Ox O2 Del Method O2 Flow Rate 98.3 F 96 18 94/56 L 100 Room Air 2 08/02/22 02:36 08/02/22 02:36 08/02/22 02:36 08/02/22 02:36 08/02/22 02:36 08/02/22 02:36 07/31/22 05:00 FiO2 25 07/30/22 23:00 Oxygen Flow Rate (L/min) 2 Oxygen Delivery Method Room Air Weight: 265 lb 3.457 oz Body Mass Index (BMI) 47.4 Intake & Output: Intake and Output for Last 24 Hours 07/31/22 08/01/22 08/02/22 23:59 23:59 23:59 Intake Total 5485.0 / 5485.0 3515.0 / 3515.0 170 / 170 Output Total 2625 / 2625 950 / 1150 200 / 200 Balance 2860.0 / 2860.0 2565.0 / 2365.0 -30 / -30 Lab / Micro Data Result Diagrams: 08/02/22 08:00 08/02/22 08:00 Labs: Laboratory Results - last 24 hr 08/02/22 08:00: WBC 15.2 H, RBC 3.10 L, Hgb 7.1 L, Hct 24.5 L, MCV 79.0 L, MCH 22.9 L, MCHC 29.0 L, RDW Std Deviation 70.6 H, RDW Coeff of Robyn 24.7 H, Plt Count 370, MPV 9.5, Neut % (Auto) Not Reportable Micro: Microbiology 07/28/22 19:52 Wound - Abdominal Gram Stain - Final 07/28/22 19:52 Wound - Abdominal Wound Culture - Final Pseudomonas aeroginosa Enterococcus faecalis 07/28/22 19:52 Wound - Abdominal Anaerobic Culture - Final Porphyromonas species Anaerobic cocci 07/30/22 15:22 Tissue - Abdominal Gram Stain - Final 07/30/22 15:22 Tissue - Abdominal Wound Culture - Final Enterobacter cloacae complex 07/30/22 14:55 Wound Abcess - Abdominal Gram Stain - Final 07/30/22 14:55 Wound Abcess - Abdominal Wound Culture - Preliminary No growth-Final to follow ROS Constitutional Constitutional: Reports as per HPI; Denies chills ENT HEENT: Denies dizziness Respiratory/Chest Respiratory/Chest: Denies chest tightness or cough Physical Exam Const alert and no apparent distress Constitutional Narrative: drowsy but arousable, recent dilaudid administration Resp normal respiratory effort and normal air movement GI GI Narrative: in process of wound vac application Extremity normal to inspection Skin Skin Narrative: see GI narrative Psych Appearance: grossly normal and appropriate Assessment & Plan (1) Necrotizing cellulitis: COMMENT: left lower abdomen, s/p surgical abdominal wall debridement x [address] palomares, IV meropenum, vancomycin, clindamycin. culture growing pseudomonas, enterobacter, and Enterococcus. (2) Acute renal failure: COMMENT: Likely secondary to infection and dehydration. Initial creatinine over 2 and now down to normal (3) Anemia associated with acute blood loss: COMMENT: transfuse 1 unit PRBC, repeat 6 hours post transfusion (4) delivery delivered: COMMENT: 07/12- SROM 38 SM [facility] [place] (5) History of gastric bypass: (6) Cellulitis of skin: COMMENT: IV Vanc and meropenum, clindamycin (7) Wound infection following section, : COMMENT: see cellulitis a/p. PLAN: Plan patient is 3 weeks post with necrotizing infection, acute renal failure - heparin for dvt prophylaxis - h/o gastric sleeve surgery, morbid obesity - IV ABx continued while awaiting final culture results, pseudomonas, enterobacter, enterococcus so far. discussed with pharmacy and will continue current regimen - anemia acute on chronic due to infection and blood loss, transfuse 1 unit and repeat h and h. IVFs also given. see a/p comments for additional plan information Charges/Coding Visit Charges Inpatient E&M: 61022 Subs Hosp L3
[2022-08-02 08:38] LABS: Anion Gap 6 (5-15); BUN 18 mg/dL (7-18); BUN/Creat Ratio 27.1 RATIO (10-20); Calcium,Total 7.6 mg/dL (8.5-10.1); Chloride 113 mmol/L (98-107); Creatinine, Serum 0.66 mg/dL (0.55-1.02); EST Glomerular Filtration Rate 109 mL/min (>60); Est Glom Filt Rate - Afr Amer 132 mL/min (>60); Estimated Creatinine Clearance 100.29 ml/min; Glucose 86 mg/dL (74-106); Potassium 4.1 mmol/L (3.5-5.1); Sodium Level 140 mmol/L (136-145)
[2022-08-02 08:45] LABS: Eosinophil 4 % (0-5); Lymphocyte 15 % (19-41); Metamyelocyte 2 % (0-1); Monocyte 5 % (0-10); Myelocyte 6 % (0-0); Neutrophil-Band 4 % (0-5); Neutrophil-Segmented 62 % (47-70); Promyelocyte 2 % (0-0); Total Cells Counted 100 (MANUAL DIFF)
[2022-08-02 08:46] LABS: Anisocytosis 1+
[2022-08-02] MEDS: Juven (unflavored) Packet 1 PACKET PO (08:56)
[2022-08-02] MEDS: Lactated Ringers 1,000 ML 999 ML IV (09:42)
--- NOTE | 2022-08-02 10:12 | WOUNDNOTE ---
wound photo: abdomen
--- NOTE | 2022-08-02 10:12 | WOUNDNOTE ---
wound photo: abdomen
--- NOTE | 2022-08-02 10:13 | WOUNDNOTE ---
wound photo: abdomen
--- NOTE | 2022-08-02 10:14 | WOUNDNOTE ---
wound photo: abdomen
--- NOTE | 2022-08-02 11:16 | CASEMGMT ---
Addendum entered by Adali Mccarthy 08/02/22 16:01: BRIDGET AUSTIN in to pt room, pt has chosen [facility]. [facility]. [facility]. [facility]. Referrals sent to all three via [facility] at this time. Addendum entered by Adali Mccarthy 08/02/22 14:08: BRIDGET AUSTIN in to pt room, pt has not yet been able to look at HHC options. BRIDGET AUSTIN to check back. Original Note: BRIDGET AUSTIN in to pt room to discuss dc planning. Discussed HHC for wound vac care. Pt states she was just speaking to her mother about this. Pt states she plans to stay at her mother's home at [address] for a week prior to returning to her home in [place]. Patient was provided a list of C providers including quality and resource use data and consistent with the patient?s preferred geographic region, medical needs, and insurance network were provided from the [facility] Guide. Pt to review list and BRIDGET AUSTIN to check back.
[2022-08-02] MEDS: Ensure Plus High Protein 120 ML LIQUID PO ×2 (11:19→22:50)
[2022-08-02] MEDS: Docusate Sodium 100 MG Capsule PO ×2 (11:19→22:50)
[2022-08-02] MEDS: Polyethylene Glycol 3350 17 GM PACKET PO (11:20)
--- NOTE | 2022-08-02 13:08 | PN.OBGYN_ITS ---
Subjective Subjective pain controlled co reflux and gas pains, getting blood transfusion Objective Data Objective Data Vital Signs: Vital Signs Temp Pulse Resp BP Pulse Ox O2 Del Method O2 Flow Rate 99.2 F H 104 H 18 101/60 100 Room Air 2 08/02/22 12:05 08/02/22 12:05 08/02/22 12:05 08/02/22 12:05 08/02/22 12:05 08/02/22 12:05 07/31/22 05:00 FiO2 25 07/30/22 23:00 Oxygen Flow Rate (L/min) 2 Oxygen Delivery Method Room Air Weight: 265 lb 3.457 oz Body Mass Index (BMI) 47.4 Intake & Output: Intake and Output for Last 24 Hours 07/31/22 08/01/22 08/02/22 23:59 23:59 23:59 Intake Total 5485.0 / 5485.0 3515.0 / 3515.0 2065 / 2065 Output Total 2625 / 2625 950 / 1150 850 / 850 Balance 2860.0 / 2860.0 2565.0 / 2365.0 1215 / 1215 Lab / Micro Data Result Diagrams: 08/02/22 08:00 08/02/22 08:00 Labs: Laboratory Results - last 24 hr 07/30/22 19:55: Blood Type B POSITIVE, Antibody Screen NEGATIVE, Crossmatch See Detail 08/02/22 08:00: Sodium 140, Potassium 4.1, Chloride 113 H, Carbon Dioxide 21.0, Anion Gap 6, BUN 18, Creatinine 0.66, Estim Creat Clear Calc 100.29, Est GFR (MDRD) Af Amer 132, Est GFR (MDRD) Non-Af 109, BUN/Creatinine Ratio 27.1 H, Glucose 86, Calcium 7.6 L 08/02/22 08:00: WBC 15.2 H, RBC 3.10 L, Hgb 7.1 L, Hct 24.5 L, MCV 79.0 L, MCH 22.9 L, MCHC 29.0 L, RDW Std Deviation 70.6 H, RDW Coeff of Robyn 24.7 H, Plt Count 370, MPV 9.5, Neut % (Auto) Not Reportable, Absolute Neuts (auto) 10.0 H, Absolute Lymphs (auto) 2.30, Total Counted 100, Neutrophils % (Manual) 62, Band Neutrophils % 4, Lymphocytes % (Manual) 15 L, Monocytes % (Manual) 5, Eosinophils % (Manual) 4, Metamyelocytes % 2 H, Myelocytes % 6 H, Promyelocytes % 2 H, Diff Path Review May foll, Anisocytosis 1+ Micro: Microbiology 07/30/22 14:55 Wound Abcess - Abdominal Gram Stain - Final 07/30/22 14:55 Wound Abcess - Abdominal Wound Culture - Preliminary No growth-Final to follow 07/30/22 14:55 Wound Abcess - Abdominal Anaerobic Culture - Preliminary 07/30/22 15:22 Tissue - Abdominal Gram Stain - Final 07/30/22 15:22 Tissue - Abdominal Wound Culture - Final Enterobacter cloacae complex 07/30/22 15:22 Tissue - Abdominal Anaerobic Culture - Preliminary 07/28/22 19:52 Wound - Abdominal Gram Stain - Final 07/28/22 19:52 Wound - Abdominal Wound Culture - Final Pseudomonas aeroginosa Enterococcus faecalis 07/28/22 19:52 Wound - Abdominal Anaerobic Culture - Final Porphyromonas species Anaerobic cocci Physical Exam Narrative alert and oriented, comfortable Assessment & Plan (1) Necrotizing cellulitis: COMMENT: left lower abdomen, s/p surgical abdominal wall debridement x [address] palomares, IV meropenum, vancomycin, clindamycin. culture growing pseudomonas, enterobacter, and Enterococcus. (2) Acute renal failure: COMMENT: Likely secondary to infection and dehydration. Initial creatinine over 2 and now down to normal (3) Anemia associated with acute blood loss: COMMENT: transfuse 1 unit PRBC, repeat 6 hours post transfusion (4) delivery delivered: COMMENT: 07/12- [facility]OM 38 [facility] [place] (5) History of gastric bypass: (6) Cellulitis of skin: COMMENT: IV Vanc and meropenum, clindamycin (7) Wound infection following section, : COMMENT: see cellulitis a/p. PLAN: Plan patient is 3 weeks post with necrotizing infection, acute renal failure - heparin for dvt prophylaxis - h/o gastric sleeve surgery, morbid obesity - IV ABx continued while awaiting final culture results, pseudomonas, e nterobacter, enterococcus so far. discussed with pharmacy and will continue current regimen - anemia acute on chronic due to infection and blood loss, transfuse 1 unit and repeat h and h. IVFs also given. see a/p comments for additional plan information
--- NOTE | 2022-08-02 13:36 | PCM.RX.CS ---
Consult Pharmacy has been consulted to manage selected antiobiotic: Vancomycin Type of Consult: Follow-up Suspected Infection: Skin/Soft tissue Prior Doses of Antibiotics Received/Current Regimen: 08/01/22 @ 0639,1920 08/02/22 @ 0707 Labs: Sodium 140 mmol/L (136-145) 08/02/22 08:00 Potassium 4.1 mmol/L (3.5-5.1) 08/02/22 08:00 Chloride 113 mmol/L (98-107) H 08/02/22 08:00 Carbon Dioxide 21.0 mmol/L (21.0-32.0) 08/02/22 08:00 Anion Gap 6 (5-15) 08/02/22 08:00 BUN 18 mg/dL (7-18) 08/02/22 08:00 Creatinine 0.66 mg/dL (0.55-1.02) 08/02/22 08:00 Est GFR (MDRD) Af Amer 132 mL/min (>60) 08/02/22 08:00 Est GFR (MDRD) Non-Af 109 mL/min (>60) 08/02/22 08:00 BUN/Creatinine Ratio 27.1 RATIO (10-20) H 08/02/22 08:00 Glucose 86 mg/dL (74-106) 08/02/22 08:00 Vancomycin Trough 13.2 ug/mL (5.0-15.0) 08/01/22 05:40 Microbiology: Microbiology 07/30/22 14:55 Wound Abcess - Abdominal Gram Stain - Final 07/30/22 14:55 Wound Abcess - Abdominal Wound Culture - Preliminary No growth-Final to follow 07/30/22 14:55 Wound Abcess - Abdominal Anaerobic Culture - Preliminary 07/30/22 15:22 Tissue - Abdominal Gram Stain - Final 07/30/22 15:22 Tissue - Abdominal Wound Culture - Final Enterobacter cloacae complex 07/30/22 15:22 Tissue - Abdominal Anaerobic Culture - Preliminary 07/28/22 19:52 Wound - Abdominal Gram Stain - Final 07/28/22 19:52 Wound - Abdominal Wound Culture - Final Pseudomonas aeroginosa Enterococcus faecalis 07/28/22 19:52 Wound - Abdominal Anaerobic Culture - Final Porphyromonas species Anaerobic cocci Weight used for dosin kg Goal Trough: 10-15 mcg/mL Pharmacy Plan for Drug Dosing: Pharmacy Service will continue to monitor and adjust dosing as required. Follow-Up Labs: Trough Vancomycin Labs to be done on [date and time ordered]: 08/03/22 @ 0731
--- NOTE | 2022-08-02 17:17 | VDLE_ITS ---
Reason For Study: LEG PAIN AND SWELLING RIGHT LEFT GSV is normal. GSV is normal. CFV is compressible, spontaneous, phasic, CFV is compressible, spontaneous, phasic, competent and demonstrates normal competent, and demonstrates normal augmentation. augmentation. FV is compressible, spontaneous, phasic, FV is compressible, spontaneous, phasic, competent and demonstrates normal competent and demonstrates normal augmentation. augmentation. POP V is compressible, spontaneous, phasic, POP V is compressible, spontaneous, phasic, competent and demonstrates normal competent and demonstrates normal augmentation. augmentation. T/P Trunk is compressible. T/P Trunk is compressible. PTV is compressible. PTV is compressible. RT PerV is compressible. LT PerV is compressible. Procedure This is a venous duplex using B-mode, color flow and spectral Doppler. Exam performed portable in patient room. The exam was diagnostic. The study was technically difficult. A preliminary report was called and/or faxed to [facility]. VL/Venous Duplex US - [facility] Extrem Interpretation Summary Deep veins of the bilateral lower extremities are patent and compressible segme ntally. There is no evidence of bilateral lower extremity deep vein thrombosis. The bilateral great saphenous veins appear patent and compressible segmentally. Ordering Physician: Lise Grimes Referring Physician: Lise Grimes Performed By: Hema Monroe RVT
--- NOTE | 2022-08-02 17:17 | CT_ITS ---
INDICATION: rule out pe EXAMINATION: CTA Chest WO/W Contrast Injection TECHNIQUE: Helically acquired images were obtained of the chest following administration of IV contrast. A radiation dose optimization technique was used for this scan. 3D postprocessing images including MIPS were reviewed. IV Contrast dosage and agent: IV 100mL [id number] COMPARISON: None. FINDINGS: Lungs: Scattered subsegmental atelectasis. Mediastinum: The cardiomediastinal silhouette is not enlarged. No mediastinal, hilar or axillary adenopathy. The thoracic aorta is unremarkable. No obvious filling defect seen within the visualized pulmonary arteries. Pleura: Unremarkable Bones/Soft tissues: Mild scattered degenerative changes of the visualized spine. Upper abdomen: No visualized abnormalities in the upper abdomen. CT/CTA Chest W/WO Contrast IMPRESSION: Limited evaluation due to heavy streak artifact. Despite limitations: No acute abnormalities in the chest. Specifically, no evidence of acute pulmonary emboli to the segmental level. Electronically Signed: Tarik Valencia MD at 19:09 EST ,
[2022-08-02] MEDS: Acetaminophen 500 MG Tablet 1000 MG PO (17:24)
--- NOTE | 2022-08-02 17:54 | PCM.PN.OB ---
Subjective Subjective called secondary to fever and tachycardia, no CP or SOB, cough. patient states doesn't have any new symptoms, some GERD and gas pains. Objective Data Objective Data Vital Signs: Vital Signs Temp Pulse Resp BP Pulse Ox O2 Del Method O2 Flow Rate 101.3 F H 122 H 18 118/71 97 Room Air 2 08/02/22 16:54 08/02/22 16:58 08/02/22 16:54 08/02/22 16:54 08/02/22 16:54 08/02/22 16:58 07/31/22 05:00 FiO2 25 07/30/22 23:00 Oxygen Flow Rate (L/min) 2 Oxygen Delivery Method Room Air Weight: 265 lb 3.457 oz Body Mass Index (BMI) 47.4 Intake & Output: Intake and Output for Last 24 Hours 07/31/22 08/01/22 08/02/22 23:59 23:59 23:59 Intake Total 5485.0 / 5485.0 3515.0 / 3515.0 2465 / 2465 Output Total 2625 / 2625 950 / 1150 850 / 850 Balance 2860.0 / 2860.0 2565.0 / 2365.0 1615 / 1615 Lab / Micro Data Result Diagrams: 08/02/22 08:00 08/02/22 08:00 Labs: Laboratory Results - last 24 hr 07/30/22 19:55: Blood Type B POSITIVE, Antibody Screen NEGATIVE, Crossmatch See Detail 08/02/22 08:00: Sodium 140, Potassium 4.1, Chloride 113 H, Carbon Dioxide 21.0, Anion Gap 6, BUN 18, Creatinine 0.66, Estim Creat Clear Calc 100.29, Est GFR (MDRD) Af Amer 132, Est GFR (MDRD) Non-Af 109, BUN/Creatinine Ratio 27.1 H, Glucose 86, Calcium 7.6 L 08/02/22 08:00: WBC 15.2 H, RBC 3.10 L, Hgb 7.1 L, Hct 24.5 L, MCV 79.0 L, MCH 22.9 L, MCHC 29.0 L, RDW Std Deviation 70.6 H, RDW Coeff of Robyn 24.7 H, Plt Count 370, MPV 9.5, Neut % (Auto) Not Reportable, Absolute Neuts (auto) 10.0 H, Absolute Lymphs (auto) 2.30, Total Counted 100, Neutrophils % (Manual) 62, Band Neutrophils % 4, Lymphocytes % (Manual) 15 L, Monocytes % (Manual) 5, Eosinophils % (Manual) 4, Metamyelocytes % 2 H, Myelocytes % 6 H, Promyelocytes % 2 H, Diff Path Review May foll, Anisocytosis 1+ Micro: Microbiology 07/30/22 14:55 Wound Abcess - Abdominal Gram Stain - Final 07/30/22 14:55 Wound Abcess - Abdominal Wound Culture - Preliminary No growth-Final to follow 07/30/22 14:55 Wound Abcess - Abdominal Anaerobic Culture - Preliminary 07/30/22 15:22 Tissue - Abdominal Gram Stain - Final 07/30/22 15:22 Tissue - Abdominal Wound Culture - Final Enterobacter cloacae complex 07/30/22 15:22 Tissue - Abdominal Anaerobic Culture - Preliminary 07/28/22 19:52 Wound - Abdominal Gram Stain - Final 07/28/22 19:52 Wound - Abdominal Wound Culture - Final Pseudomonas aeroginosa Enterococcus faecalis 07/28/22 19:52 Wound - Abdominal Anaerobic Culture - Final Porphyromonas species Anaerobic cocci ROS ROS Narrative see hpi Physical Exam Const alert and no apparent distress Resp normal respiratory effort and normal air movement Resp Narrative: diminished at bases bilaterally CTAB Cardio Cardio Narrative: sinus tach nl s1s2 GI GI Narrative: wound vac in place, more tenderness over left than right, mild erythema around all incision Extremity normal to inspection Extremity Narrative: mild swelling no calf tenderness Skin Skin Narrative: see GI narrative Psych Appearance: grossly normal and appropriate Assessment & Plan (1) Necrotizing cellulitis: COMMENT: left lower abdomen, s/p surgical abdominal wall debridement x [address] palomares, IV meropenum, vancomycin, clindamycin. culture growing pseudomonas, enterobacter, and Enterococcus. (2) Acute renal failure: COMMENT: Likely secondary to infection and dehydration. Initial creatinine over 2 and now down to normal (3) Anemia associated with acute blood loss: COMMENT: transfuse 1 unit PRBC, repeat 6 hours post transfusion (4) delivery delivered: COMMENT: 07/12- SROM 38 [facility] [place] (5) History of gastric bypass: (6) Cellulitis of skin: COMMENT: IV Vanc and meropenum, clindamycin (7) Wound infection following section, : COMMENT: see cellulitis a/p. (8) Fever: COMMENT: CT chest, LE dopplers, lactic acid, blood cultures, ua and culture ordered. PLAN: Plan additional workup ordered for fever, imaging ordered. discussed assessment and findings with dr palomares, agrees with plan see a/p comments for additional plan information
[2022-08-02 18:23] LABS: Hematocrit 30.9 % (37-47); Hemoglobin 9.3 g/dL (12.0-15.0); Mean Corp Hgb Conc 30.1 g/dL (32-36); Mean Corpuscular Hgb 23.5 pg (27.0-32.0); Mean Corpuscular Volume 78.2 fL (81-99); Mean Platelet Vol. 9.6 fl (6.2-12.0); POSITIVE COUNT YES; POSITIVE MORPHOLOGY YES; Platelet Count 406 K/mm3 (150-450); RBC Distribution Width CV 23.6 % (11.6-14.6); RBC Distribution Width SD 66.1 fl (35.1-43.9); Red Blood Count 3.95 M/mm3 (4.2-5.4); White Blood Count 18.9 K/mm3 (4.4-11.0)
[2022-08-02 18:28] LABS: Mucous, Urine 0 SEEN /hpf (<or=2+); Squamous Epithelial Cells - UA 0 SEEN /hpf (5-10)
[2022-08-02 18:38] LABS: Color, Urine Yellow (Yellow); Glucose, Dipstick Normal (Normal); Nitrite-Dipstick Positive (Negative); Occult Blood-Urine 10 /ul (Negative); Urine Bilirubin Dipstick Negative (Negative); Urine Urobilinogen Normal (Normal); Urine pH 6.5 (5.0 - 8.0)
[2022-08-02 18:43] LABS: Differential Indicated MANUAL DIFF
[2022-08-02 18:44] LABS: Ketone-Dipstick 5 mg/dl (Negative); Leukocyte Esterase-Dipstick 25 /ul (Negative); Protein-Dipstick 30 mg/dl (Negative); Specific Gravity, Urine 1.015 (1.002-1.030); Urine Clarity Sl. Cloudy (Clear)
[2022-08-02 18:45] LABS: Lactic Acid 1.1 mmol/L (0.4-1.9)
[2022-08-02 18:50] LABS: White Blood Cells 0-5 SEEN /hpf (0-5)
[2022-08-02 18:51] LABS: Bacteria 1+ /hpf (None Seen); Red Blood Cells-Urine 0-5 SEEN /hpf (0-5)
[2022-08-02 19:10] LABS: Neutrophil-Band 2 % (0-5); Neutrophil-Segmented 83 % (47-70); Total Cells Counted 100 (MANUAL DIFF)
[2022-08-02 19:11] LABS: Anisocytosis 2+; Lymphocyte 9 % (19-41); Macrocytosis 1+; Metamyelocyte 1 % (0-1); Microcytosis 1+; Monocyte 3 % (0-10); Myelocyte 2 % (0-0); Platelet Estimate ADEQUATE (ADEQ)
[2022-08-02 19:12] LABS: Absolute Neutrophil Count 16.1 X10^3/uL (2.0-7.7)
[2022-08-02] MEDS: Famotidine 20 MG Tablet PO (19:15)
[2022-08-02 20:38] LABS: Anion Gap 12 (5-15); BUN 16 mg/dL (7-18); Calcium,Total 7.4 mg/dL (8.5-10.1); Chloride 108 mmol/L (98-107); Creatinine, Serum 0.62 mg/dL (0.55-1.02); EST Glomerular Filtration Rate 119 mL/min (>60); Est Glom Filt Rate - Afr Amer 144 mL/min (>60); Estimated Creatinine Clearance 106.76 ml/min; Glucose 81 mg/dL (74-106); Sodium Level 138 mmol/L (136-145)
[2022-08-02 23:20] LABS: Platelet Estimate ADEQUATE (ADEQ); Red Cell Morphology NORM C+C NORMAL (NORM C&C)
[2022-08-03 04:45] VITALS: BP 114/70; PULSE 97; RESP 16; TEMP 37.2; O2SAT 99
[2022-08-03] MEDS: Heparin Injection (Vial) 5,000 UNIT/ML VIAL 5000 UNIT SC ×3 (06:20→21:53)
[2022-08-03 07:45] VITALS: BP 120/73; PULSE 102; RESP 18; TEMP 37; O2SAT 100
[2022-08-03] MEDS: Juven (unflavored) Packet 1 PACKET PO (07:47)
--- NOTE | 2022-08-03 07:52 | WOUNDNOTE ---
Pt had a moderate amount of drainage in the wound VAC canister through the night. canister was changed. there is currently approx 50 cc's drainage in canister. WBC slightly increased from yesterday. home vac approval still pending. Pt did have a low grade temp yesterday afternoon as well.
[2022-08-03 08:16] LABS: Hematocrit 28.1 % (37-47); Hemoglobin 8.5 g/dL (12.0-15.0); Mean Corp Hgb Conc 30.2 g/dL (32-36); Mean Corpuscular Hgb 23.7 pg (27.0-32.0); Mean Corpuscular Volume 78.5 fL (81-99); Mean Platelet Vol. 10.2 fl (6.2-12.0); POSITIVE COUNT YES; POSITIVE MORPHOLOGY YES; Platelet Count 360 K/mm3 (150-450); RBC Distribution Width CV 23.3 % (11.6-14.6); Red Blood Count 3.58 M/mm3 (4.2-5.4); White Blood Count 14.4 K/mm3 (4.4-11.0)
[2022-08-03 08:34] LABS: Anion Gap 6 (5-15); BUN 12 mg/dL (7-18); BUN/Creat Ratio 19.7 RATIO (10-20); Calcium,Total 7.7 mg/dL (8.5-10.1); Chloride 111 mmol/L (98-107); Creatinine, Serum 0.61 mg/dL (0.55-1.02); EST Glomerular Filtration Rate 121 mL/min (>60); Est Glom Filt Rate - Afr Amer 146 mL/min (>60); Estimated Creatinine Clearance 108.51 ml/min; Glucose 87 mg/dL (74-106); Potassium 5.3 mmol/L (3.5-5.1); Sodium Level 138 mmol/L (136-145)
[2022-08-03 08:35] LABS: Differential Indicated MANUAL DIFF
[2022-08-03 08:50] LABS: Anisocytosis 1+; Lymphocyte 8 % (19-41); Metamyelocyte 1 % (0-1); Monocyte 1 % (0-10); Myelocyte 4 % (0-0); Neutrophil-Band 1 % (0-5); Neutrophil-Segmented 85 % (47-70); Total Cells Counted 100 (MANUAL DIFF)
[2022-08-03 08:51] LABS: Vancomycin, Trough Level 14.6 ug/mL (5.0-15.0)
[2022-08-03 09:00] LABS: Absolute Neutrophil Count 10.7 X10^3/uL (2.0-7.7)
--- NOTE | 2022-08-03 09:02 | PN.OBGYN_ITS ---
Subjective Subjective temp down since spike yesterday afternoon. workup negative so far for additional fever, suspect transfusion vs inflammatory release from wound dressing change and vacuum application. no CP SOB, co gas pains still but passing flatus and positive BM last night. no calf pain. Objective Data Objective Data Vital Signs: Vital Signs Temp Pulse Resp BP Pulse Ox O2 Del Method O2 Flow Rate 98.6 F 102 H 18 120/73 100 Room Air 2 08/03/22 07:45 08/03/22 07:45 08/03/22 07:45 08/03/22 07:45 08/03/22 07:45 08/03/22 07:45 07/31/22 05:00 FiO2 25 07/30/22 23:00 Oxygen Flow Rate (L/min) 2 Oxygen Delivery Method Room Air Weight: 274 lb 4.081 oz Body Mass Index (BMI) 47.4 Intake & Output: Intake and Output for Last 24 Hours 08/01/22 08/02/22 08/03/22 23:59 23:59 23:59 Intake Total 3515.0 / 3515.0 3360 / 3360 120 / 120 Output Total 950 / 1150 1550 / 2400 950 / 950 Balance 2565.0 / 2365.0 1810 / 960 -830 / -830 Lab / Micro Data Result Diagrams: 08/03/22 08:00 08/03/22 08:00 Labs: Laboratory Results - last 24 hr 07/30/22 19:55: Blood Type B POSITIVE, Antibody Screen NEGATIVE, Crossmatch See Detail 08/02/22 08:00: Platelet Estimate ADEQUATE, RBC Morphology NORM C+C 08/02/22 17:50: Sodium 138, Potassium 5.0, Chloride 108 H, Carbon Dioxide 18.0 L , Anion Gap 12, BUN 16, Creatinine 0.62, Estim Creat Clear Calc 106.76, Est GFR (MDRD) Af Amer 144, Est GFR (MDRD) Non-Af 119, BUN/Creatinine Ratio 26.0 H, Glucose 81, Calcium 7.4 L 08/02/22 17:53: Urine Color Yellow, Urine Clarity Sl. Cloudy, Urine pH 6.5, Ur Specific [place] 1.015, Urine Protein 30 H, Urine Glucose (UA) Normal, Urine Ketones 5 H, Urine Occult Blood 10 H, Urine Nitrite Positive H, Urine Bilirubin Negative, Urine Urobilinogen Normal, Ur Leukocyte Esterase 25 H, Urine RBC 0-5 SEEN, Urine WBC 0-5 SEEN, Ur Squamous Epith Cells 0 SEEN, Urine Bacteria 1+, Urine Mucus 0 SEEN 08/02/22 17:58: Lactic Acid 1.1 08/02/22 17:58: WBC 18.9 H, RBC 3.95 L, Hgb 9.3 L, Hct 30.9 L, MCV 78.2 L, MCH 23.5 L, MCHC 30.1 L, RDW Std Deviation 66.1 H, RDW Coeff of Robyn 23.6 H, Plt Count 406, MPV 9.6, Neut % (Auto) Not Reportable, Absolute Neuts (auto) 16.1 H, Absolute Lymphs (auto) 1.70, Total Counted 100, Neutrophils % (Manual) 83 H, Band Neutrophils % 2, Lymphocytes % (Manual) 9 L, Monocytes % (Manual) 3, Metamyelocytes % 1, Myelocytes % 2 H, Diff Path Review May darius, Platelet Estimate ADEQUATE, Anisocytosis 2+, Microcytosis 1+, Macrocytosis 1+ 08/03/22 08:00: Vancomycin Trough 14.6 08/03/22 08:00: WBC 14.4 H, RBC 3.58 L, Hgb 8.5 L, Hct 28.1 L, MCV 78.5 L, MCH 23.7 L, MCHC 30.2 L, RDW Std Deviation 66.0 H, RDW Coeff of Robyn 23.3 H, Plt Count 360, MPV 10.2, Neut % (Auto) Not Reportable, Absolute Neuts (auto) 10.7 H, Absolute Lymphs (auto) 1.10, Total Counted 100, Neutrophils % (Manual) 85 H, Band Neutrophils % 1, Lymphocytes % (Manual) 8 L, Monocytes % (Manual) 1, Metamyelocytes % 1, Myelocytes % 4 H, Diff Path Review May darius, Anisocytosis 1+ 08/03/22 08:00: Sodium 138, Potassium 5.3 H, Chloride 111 H, Carbon Dioxide 21.0, Anion Gap 6, BUN 12, Creatinine 0.61, Estim Creat Clear Calc 108.51, Est GFR (MDRD) Af Amer 146, Est GFR (MDRD) Non-Af 121, BUN/Creatinine Ratio 19.7, Glucose 87, Calcium 7.7 L Micro: Microbiology 07/30/22 14:55 Wound Abcess - Abdominal Gram Stain - Final 07/30/22 14:55 Wound Abcess - Abdominal Wound Culture - Final Actinomyces neuii 07/30/22 15:22 Tissue - Abdominal Gram Stain - Final 07/30/22 15:22 Tissue - Abdominal Wound Culture - Final Enterobacter cloacae complex 07/30/22 15:22 Tissue - Abdominal Anaerobic Culture - Preliminary 07/28/22 19:52 Wound - Abdominal Gram Stain - Final 07/28/22 19:52 Wound - Abdominal Wound Culture - Final Pseudomonas aeroginosa Enterococcus faecalis 07/28/22 19:52 Wound - Abdominal Anaerobic Culture - Final Porphyromonas species Anaerobic cocci Radiography Diagnostic Testing: Radiology Impression Chest CTA 08/02/22 17:17 IMPRESSION: Limited evaluation due to heavy streak artifact. Despite limitations: No acute abnormalities in the chest. Specifically, no evidence of acute pulmonary emboli to the segmental level. Electronically Signed: Tarik Valencia MD at 19:09 EST , ROS ROS Narrative see hpi Physical Exam Const alert and no apparent distress Resp normal respiratory effort and normal air movement GI GI Narrative: wound vac in place, more tenderness over left than right, mild erythema around all incision Extremity normal to inspection Extremity Narrative: mild swelling no calf tenderness Skin Skin Narrative: see GI narrative Psych Appearance: grossly normal and appropriate Assessment & Plan (1) Fever: COMMENT: neg CT chest, ordered LE dopplers, nl lactic acid, pending blood cultures, ua and culture ordered. suspect post transfusion response versus inflammatory response from wound dressing change and vacuum application (2) Anemia associated with acute blood loss: COMMENT: s/p 1 unit PRBC (3) Necrotizing cellulitis: COMMENT: left lower abdomen, s/p surgical abdominal wall debridement x [address] palomares, IV meropenum, vancomycin, clindamycin. culture growing pseudomonas, enterobacter, and Enterococcus. ID consultation (4) Acute renal failure: COMMENT: Likely secondary to infection and dehydration. Initial creatinine over 2 and now down to normal (5) delivery delivered: COMMENT: 07/12- SROM 38 [facility] [place] (6) History of gastric bypass: (7) Cellulitis of skin: COMMENT: IV Vanc and meropenum, clindamycin (8) Wound infection following section, : COMMENT: see cellulitis a/p. PLAN: Plan patient is 3 weeks post with necrotizing infection, acute renal failure - heparin for dvt prophylaxis - h/o gastric sleeve surgery, morbid obesity - IV ABx continued - pseudomonas, enterobacter, enterococcus so far. ID consul tation - anemia acute on chronic due to infection and blood loss, s/p 1 unit - PT OT consultation - mild hyperkalemia likely due to infection and blood transfusion, will follow see a/p comments for additional plan information
[2022-08-03] MEDS: 0.9% Saline Lock 10 ML Syringe IV (09:18)
--- NOTE | 2022-08-03 09:29 | WOUNDNOTE ---
Assisted patient out of the bathroom. Therapy in to see patient. patient ambulated to doorway and back to chair. pt tolerated well. wound VAC dressing intact with good seal noted at 125mmHg low continuous suction. patient has some mild redness to back. appears irritated from the wrinkles in sheets and linens. no warmth noted. patient denies much tenderness around the VAC dressing. will monitor. next dressing change tomorrow.
[2022-08-03] MEDS: oxyCODONE 5 MG Tablet 10 MG PO ×3 (09:30→21:47)
[2022-08-03] MEDS: Acetaminophen 500 MG Tablet 1000 MG PO (09:30)
[2022-08-03] MEDS: Docusate Sodium 100 MG Capsule PO (09:39)
[2022-08-03 09:41] LABS: Pathologist Review Reviewed
[2022-08-03] MEDS: Polyethylene Glycol 3350 17 GM PACKET PO (09:41)
[2022-08-03] MEDS: Ensure Plus High Protein 120 ML LIQUID PO ×4 (09:41→21:53)
[2022-08-03] MEDS: Famotidine 20 MG Tablet PO ×2 (09:42→21:47)
[2022-08-03 09:45] LABS: Pathologist Review Reviewed
[2022-08-03 09:52] LABS: Pathologist Review Reviewed
--- NOTE | 2022-08-03 09:58 | PCM.RX.CS ---
Consult Pharmacy has been consulted to manage selected antiobiotic: Vancomycin Type of Consult: New start Prior Doses of Antibiotics Received/Current Regimen: Medications Vancomycin HCl 1,250 mg/ (Sodium Chloride) 275 mls @ 167 mls/hr IV Q12H [facility] Last Admin: 08/03/22 09:17 Dose: 167 mls/hr Labs: Sodium 138 mmol/L (136-145) 08/03/22 08:00 Potassium 5.3 mmol/L (3.5-5.1) H 08/03/22 08:00 Chloride 111 mmol/L (98-107) H 08/03/22 08:00 Carbon Dioxide 21.0 mmol/L (21.0-32.0) 08/03/22 08:00 Anion Gap 6 (5-15) 08/03/22 08:00 BUN 12 mg/dL (7-18) 08/03/22 08:00 Creatinine 0.61 mg/dL (0.55-1.02) 08/03/22 08:00 Est GFR (MDRD) Af Amer 146 mL/min (>60) 08/03/22 08:00 Est GFR (MDRD) Non-Af 121 mL/min (>60) 08/03/22 08:00 BUN/Creatinine Ratio 19.7 RATIO (10-20) 08/03/22 08:00 Glucose 87 mg/dL (74-106) 08/03/22 08:00 Vancomycin Trough 14.6 ug/mL (5.0-15.0) 08/03/22 08:00 Microbiology: Microbiology 07/30/22 14:55 Wound Abcess - Abdominal Gram Stain - Final 07/30/22 14:55 Wound Abcess - Abdominal Wound Culture - Final Actinomyces neuii 07/30/22 15:22 Tissue - Abdominal Gram Stain - Final 07/30/22 15:22 Tissue - Abdominal Wound Culture - Final Enterobacter cloacae complex 07/30/22 15:22 Tissue - Abdominal Anaerobic Culture - Preliminary 07/28/22 19:52 Wound - Abdominal Gram Stain - Final 07/28/22 19:52 Wound - Abdominal Wound Culture - Final Pseudomonas aeroginosa Enterococcus faecalis 07/28/22 19:52 Wound - Abdominal Anaerobic Culture - Final Porphyromonas species Anaerobic cocci Goal Trough: 10-15 mcg/mL Pharmacy Plan for Drug Dosing: Trough at upper end of goal range. K was elevated and has been for 2 days. Will decrease vancomycin to 1000mg IV q12h and watch SCr and draw trough prior to 4th dose. Pharmacy Service will continue to monitor and adjust dosing as required. Follow-Up Labs: Trough Vancomycin - 08/05 @ 0830
[2022-08-03 10:02] LABS: Pathologist Review Reviewed
--- NOTE | 2022-08-03 10:17 | PN.SURG_ITS ---
Subjective Subjective Patient did have a fever yesterday. Patient CT as well as Dopplers are negative. Patient also got 1 unit packed red blood cells due to hemoglobin of 7.1. Likely fever may have been due to transfusion reaction. Patient's white blood cell count initially 18.9 which had been fevered currently down to 15. ID consulted Objective Data Objective Data Vital Signs: Vital Signs Temp Pulse Resp BP Pulse Ox O2 Del Method O2 Flow Rate 98.6 F 102 H 18 120/73 100 Room Air 2 08/03/22 07:45 08/03/22 07:45 08/03/22 07:45 08/03/22 07:45 08/03/22 07:45 08/03/22 09:47 07/31/22 05:00 FiO2 25 07/30/22 23:00 Oxygen Flow Rate (L/min) 2 Oxygen Delivery Method Room Air Weight: 274 lb 4.081 oz Body Mass Index (BMI) 47.4 Intake & Output: Intake and Output for Last 24 Hours 08/01/22 08/02/22 08/03/22 23:59 23:59 23:59 Intake Total 3515.0 / 3515.0 3360 / 3360 120 / 120 Output Total 950 / 1150 1550 / 2400 950 / 950 Balance 2565.0 / 2365.0 1810 / 960 -830 / -830 Lab / Micro Data Result Diagrams: 08/03/22 08:00 08/03/22 08:00 Labs: Laboratory Results - last 24 hr 07/30/22 19:55: Blood Type B POSITIVE, Antibody Screen NEGATIVE, Crossmatch See Detail 07/30/22 : Diff Path Review Reviewed 07/31/22 03:10: Diff Path Review Reviewed 07/31/22 23:00: Diff Path Review Reviewed 08/01/22 04:30: Diff Path Review Reviewed 08/02/22 08:00: Platelet Estimate ADEQUATE, RBC Morphology NORM C+C 08/02/22 17:50: Sodium 138, Potassium 5.0, Chloride 108 H, Carbon Dioxide 18.0 L , Anion Gap 12, BUN 16, Creatinine 0.62, Estim Creat Clear Calc 106.76, Est GFR (MDRD) Af Amer 144, Est GFR (MDRD) Non-Af 119, BUN/Creatinine Ratio 26.0 H, Glucose 81, Calcium 7.4 L 08/02/22 17:53: Urine Color Yellow, Urine Clarity Sl. Cloudy, Urine pH 6.5, Ur Specific [place] 1.015, Urine Protein 30 H, Urine Glucose (UA) Normal, Urine Ketones 5 H, Urine Occult Blood 10 H, Urine Nitrite Positive H, Urine Bilirubin Negative, Urine Urobilinogen Normal, Ur Leukocyte Esterase 25 H, Urine RBC 0-5 SEEN, Urine WBC 0-5 SEEN, Ur Squamous Epith Cells 0 SEEN, Urine Bacteria 1+, Urine Mucus 0 SEEN 08/02/22 17:58: Lactic Acid 1.1 08/02/22 17:58: WBC 18.9 H, RBC 3.95 L, Hgb 9.3 L, Hct 30.9 L, MCV 78.2 L, MCH 23.5 L, MCHC 30.1 L, RDW Std Deviation 66.1 H, RDW Coeff of Robyn 23.6 H, Plt Count 406, MPV 9.6, Neut % (Auto) Not Reportable, Absolute Neuts (auto) 16.1 H, Absolute Lymphs (auto) 1.70, Total Counted 100, Neutrophils % (Manual) 83 H, Band Neutrophils % 2, Lymphocytes % (Manual) 9 L, Monocytes % (Manual) 3, Metamyelocytes % 1, Myelocytes % 2 H, Diff Path Review Shahana mccoy, Platelet Estimate ADEQUATE, Anisocytosis 2+, Microcytosis 1+, Macrocytosis 1+ 08/03/22 08:00: Vancomycin Trough 14.6 08/03/22 08:00: WBC 14.4 H, RBC 3.58 L, Hgb 8.5 L, Hct 28.1 L, MCV 78.5 L, MCH 23.7 L, MCHC 30.2 L, RDW Std Deviation 66.0 H, RDW Coeff of Robyn 23.3 H, Plt Count 360, MPV 10.2, Neut % (Auto) Not Reportable, Absolute Neuts (auto) 10.7 H, Absolute Lymphs (auto) 1.10, Total Counted 100, Neutrophils % (Manual) 85 H, Band Neutrophils % 1, Lymphocytes % (Manual) 8 L, Monocytes % (Manual) 1, Metamyelocytes % 1, Myelocytes % 4 H, Diff Path Review Shahana mccoy, Anisocytosis 1+ 08/03/22 08:00: Sodium 138, Potassium 5.3 H, Chloride 111 H, Carbon Dioxide 21.0, Anion Gap 6, BUN 12, Creatinine 0.61, Estim Creat Clear Calc 108.51, Est GFR (MDRD) Af Amer 146, Est GFR (MDRD) Non-Af 121, BUN/Creatinine Ratio 19.7, Glucose 87, Calcium 7.7 L Micro: Microbiology 07/30/22 14:55 Wound Abcess - Abdominal Gram Stain - Final 07/30/22 14:55 Wound Abcess - Abdominal Wound Culture - Final Actinomyces neuii 07/30/22 15:22 Tissue - Abdominal Gram Stain - Final 07/30/22 15:22 Tissue - Abdominal Wound Culture - Final Enterobacter cloacae complex 07/30/22 15:22 Tissue - Abdominal Anaerobic Culture - Preliminary 07/28/22 19:52 Wound - Abdominal Gram Stain - Final 07/28/22 19:52 Wound - Abdominal Wound Culture - Final Pseudomonas aeroginosa Enterococcus faecalis 07/28/22 19:52 Wound - Abdominal Anaerobic Culture - Final Porphyromonas species Anaerobic cocci Radiography Diagnostic Testing: Radiology Impression Chest CTA 08/02/22 17:17 IMPRESSION: Limited evaluation due to heavy streak artifact. Despite limitations: No acute abnormalities in the chest. Specifically, no evidence of acute pulmonary emboli to the segmental level. Electronically Signed: Tarik Valencia MD at 19:09 EST , Physical Exam Const oriented x3 Resp normal respiratory effort Cardio regular rate GI GI Narrative: Abdomen: Soft, nondistended, tender lower abd wound --wound VAC in place Assessment & Plan Assessment/Plan (1) Necrotizing cellulitis: PLAN: Plan Wound VAC in place. Febrile?currently afebrile likely possibly due to transfusion reaction as CTA negative as well as Dopplers. SAHRA Valenzuela, continue out of bed to chair/ambulation Continue IV antibiotics, monitor white blood cell count, ID consulted Continue regular diet. Ameena Brody M.D. Pager: [phone] [facility] [address] [place] [address], Outpatient Pavilion, [address] [place] [address] Office: [phone]
--- NOTE | 2022-08-03 10:47 | CON.PCM.ID_ITS ---
Assessment & Plan Assessment/Plan (1) Necrotizing cellulitis: PLAN: sepsis and ANGEL due to polymicrobial necrotizing fasciitis s/p 07/13/22. Taken to OR 07/30/[address] Brody. Wound doing well now. Fever and ANGEL resolved, wbc improving. On vanc/tri. Surg cx and wound cx with enterobacter, actino, PsA, enterococcus, and anaerobes. Will stop vanc. Cont tri. Reports hives with PCN and cefdinir. Will follow, thank you. (2) Acute renal failure: HPI Consult Data Date of Consult: 08/03/22 HPI Narrative Reason for Consultation: nec fasc HPI Narrative: TALIB MG, is a 32 F who had [address] Dr. Grimes 07/13/22. Developed acute onset progressive pain, bruising over lower abd, associated with night sweats. Saw OB 07/27, next day worsening symptoms, went to [facility], found to have ANGEL and wound infection with possible gas present. Transferred here 07/28, admitted on vanc/tri. Clinda added 07/30, taken to OR 07/[address] Brody for nec fasc. Repeat OR in 07/31. Now feeling better, abd sore at surgical site. No fever, night sweats have resolved. Baby is on formula. Full ROS performed and neg except as noted above. [facility] Medical History Anemia Gastric polyp GERD (gastroesophageal reflux disease) Home Medications prenat.vits,mirian,[id number] 1 tab PO DAILY Check with primary doctor 12/08/21 [History Last Taken 07/12/22] omeprazole 40 mg capsule,delayed release 20 mg PO BID heart burn 07/29/22 [History Last Taken 07/28/22 09:00] Allergy/AdvReac Type Severity Reaction Status Date / Time amoxicillin [From Amoxil] Allergy Intermediate hives Verified 07/27/22 14:06 cefdinir Allergy Hives Verified 07/27/22 14:06 adhesive tape AdvReac Mild Rash Verified 07/27/22 14:06 Family History Father Hypertension Cancer prostate Aortic aneurysm DVT (deep venous thrombosis) Mother Hypertension Grandmother Cancer cervical Surgical History S/P gastric surgery Status post hip surgery Social History adopted: No household members: significant other number of children: 2 current occupational status: employed current occupation: [employer] pets and animals: No Smoking Status: Never smoker alcohol intake: never substance use type: does not use caffeine: No do you feel safe at home: Yes additional social history: Shweta Sethi Physical Exam Const alert, oriented x3 and no apparent distress General Appearance: cooperative and well developed HEENT normocephalic and head/scalp atraumatic Eyes PERRL and EOMs intact bilaterally Neck supple and No nodes Resp normal air movement and clear to auscultation bilaterally Cardio regular rate and regular rhythm GI soft to palpation and non-distended GI Narrative: mild soreness Extremity General Extremity: edema Skin Skin Narrative: reviewed wound photos Neuro CN's II-XII intact bilaterally Lab / Micro Data Attestation: I reviewed the patient's lab results. Result Diagrams: 08/03/22 08:00 08/03/22 08:00 Labs: Laboratory Results - last 24 hr 07/30/22 19:55: Blood Type B POSITIVE, Antibody Screen NEGATIVE, Crossmatch See Detail 07/30/22 : Diff Path Review Reviewed 07/31/22 03:10: Diff Path Review Reviewed 07/31/22 23:00: Diff Path Review Reviewed 08/01/22 04:30: Diff Path Review Reviewed 08/02/22 08:00: Platelet Estimate ADEQUATE, RBC Morphology NORM C+C 08/02/22 17:50: Sodium 138, Potassium 5.0, Chloride 108 H, Carbon Dioxide 18.0 L , Anion Gap 12, BUN 16, Creatinine 0.62, Estim Creat Clear Calc 106.76, Est GFR (MDRD) Af Amer 144, Est GFR (MDRD) Non-Af 119, BUN/Creatinine Ratio 26.0 H, Glucose 81, Calcium 7.4 L 08/02/22 17:53: Urine Color Yellow, Urine Clarity Sl. Cloudy, Urine pH 6.5, Ur Specific [place] 1.015, Urine Protein 30 H, Urine Glucose (UA) Normal, Urine Ketones 5 H, Urine Occult Blood 10 H, Urine Nitrite Positive H, Urine Bilirubin Negative, Urine Urobilinogen Normal, Ur Leukocyte Esterase 25 H, Urine RBC 0-5 SEEN, Urine WBC 0-5 SEEN, Ur Squamous Epith Cells 0 SEEN, Urine Bacteria 1+, Urine Mucus 0 SEEN 08/02/22 17:58: Lactic Acid 1.1 08/02/22 17:58: WBC 18.9 H, RBC 3.95 L, Hgb 9.3 L, Hct 30.9 L, MCV 78.2 L, MCH 23.5 L, MCHC 30.1 L, RDW Std Deviation 66.1 H, RDW Coeff of Robyn 23.6 H, Plt Count 406, MPV 9.6, Neut % (Auto) Not Reportable, Absolute Neuts (auto) 16.1 H, Absolute Lymphs (auto) 1.70, Total Counted 100, Neutrophils % (Manual) 83 H, Band Neutrophils % 2, Lymphocytes % (Manual) 9 L, Monocytes % (Manual) 3, Metamyelocytes % 1, Myelocytes % 2 H, Diff Path Review May darius, Platelet Estimate ADEQUATE, Anisocytosis 2+, Microcytosis 1+, Macrocytosis 1+ 08/03/22 08:00: Vancomycin Trough 14.6 08/03/22 08:00: WBC 14.4 H, RBC 3.58 L, Hgb 8.5 L, Hct 28.1 L, MCV 78.5 L, MCH 23.7 L, MCHC 30.2 L, RDW Std Deviation 66.0 H, RDW Coeff of Robyn 23.3 H, Plt Count 360, MPV 10.2, Neut % (Auto) Not Reportable, Absolute Neuts (auto) 10.7 H, Absolute Lymphs (auto) 1.10, Total Counted 100, Neutrophils % (Manual) 85 H, Ba nd Neutrophils % 1, Lymphocytes % (Manual) 8 L, Monocytes % (Manual) 1, Metam yelocytes % 1, Myelocytes % 4 H, Diff Path Review May darius, Anisocytosis 1+ 08/03/22 08:00: Sodium 138, Potassium 5.3 H, Chloride 111 H, Carbon Dioxide 21.0, Anion Gap 6, BUN 12, Creatinine 0.61, Estim Creat Clear Calc 108.51, Est GFR (MDRD) Af Amer 146, Est GFR (MDRD) Non-Af 121, BUN/Creatinine Ratio 19.7, Glucose 87, Calcium 7.7 L Micro: Microbiology 07/30/22 14:55 Wound Abcess - Abdominal Gram Stain - Final 07/30/22 14:55 Wound Abcess - Abdominal Wound Culture - Final Actinomyces neuii 07/30/22 15:22 Tissue - Abdominal Gram Stain - Final 07/30/22 15:22 Tissue - Abdominal Wound Culture - Final Enterobacter cloacae complex 07/30/22 15:22 Tissue - Abdominal Anaerobic Culture - Preliminary 07/28/22 19:52 Wound - Abdominal Gram Stain - Final 07/28/22 19:52 Wound - Abdominal Wound Culture - Final Pseudomonas aeroginosa Enterococcus faecalis 07/28/22 19:52 Wound - Abdominal Anaerobic Culture - Final Porphyromonas species Anaerobic cocci Radiology Impression Chest CTA 08/02/22 17:17 IMPRESSION: Limited evaluation due to heavy streak artifact. Despite limitations: No acute abnormalities in the chest. Specifically, no evidence of acute pulmonary emboli to the segmental level. Electronically Signed: Tarik Valencia MD at 19:09 EST ,
--- NOTE | 2022-08-03 11:08 | CASEMGMT ---
Addendum entered by Adali Mccarthy 08/03/22 15:50: [facility] is reviewing pt referral and requesting a teachable cg. RN CM in to pt room, pt states that her mother will be able to learn while she is there and her fiance when she returns home. She states her mother has dealt with a wound vac in the past with another family member. Sent message via [employer] to update [facility]. Original Note: [facility] and [facility] are unable to accept pt for care, received messages via [employer].
--- NOTE | 2022-08-03 13:23 | PN.HOSP_ITS ---
Subjective Subjective Follow-up for infected large abdominal surgical wound after section with surrounding cellulitis Objective Data Objective Data Vital Signs: Vital Signs Temp Pulse Resp BP Pulse Ox O2 Del Method O2 Flow Rate 98.6 F 102 H 18 120/73 100 Room Air 2 08/03/22 07:45 08/03/22 07:45 08/03/22 07:45 08/03/22 07:45 08/03/22 07:45 08/03/22 09:47 07/31/22 05:00 FiO2 25 07/30/22 23:00 Oxygen Flow Rate (L/min) 2 Oxygen Delivery Method Room Air Weight: 274 lb 4.081 oz Body Mass Index (BMI) 47.4 Intake & Output: Intake and Output for Last 24 Hours 08/01/22 08/02/22 08/03/22 23:59 23:59 23:59 Intake Total 3515.0 / 3515.0 3360 / 3360 965 / 965 Output Total 950 / 1150 1550 / 2400 1500 / 1500 Balance 2565.0 / 2365.0 1810 / 960 -535 / -535 Lab / Micro Data Result Diagrams: 08/03/22 08:00 08/03/22 08:00 Labs: Laboratory Results - last 24 hr 07/30/22 19:55: Crossmatch See Detail 07/30/22 : Diff Path Review Reviewed 07/31/22 03:10: Diff Path Review Reviewed 07/31/22 23:00: Diff Path Review Reviewed 08/01/22 04:30: Diff Path Review Reviewed 08/02/22 08:00: Platelet Estimate ADEQUATE, RBC Morphology NORM C+C 08/02/22 17:50: Sodium 138, Potassium 5.0, Chloride 108 H, Carbon Dioxide 18.0 L , Anion Gap 12, BUN 16, Creatinine 0.62, Estim Creat Clear Calc 106.76, Est GFR (MDRD) Af Amer 144, Est GFR (MDRD) Non-Af 119, BUN/Creatinine Ratio 26.0 H, Glucose 81, Calcium 7.4 L 08/02/22 17:53: Urine Color Yellow, Urine Clarity Sl. Cloudy, Urine pH 6.5, Ur Specific [place] 1.015, Urine Protein 30 H, Urine Glucose (UA) Normal, Urine Ketones 5 H, Urine Occult Blood 10 H, Urine Nitrite Positive H, Urine Bilirubin Negative, Urine Urobilinogen Normal, Ur Leukocyte Esterase 25 H, Urine RBC 0-5 SEEN, Urine WBC 0-5 SEEN, Ur Squamous Epith Cells 0 SEEN, Urine Bacteria 1+, Urine Mucus 0 SEEN 08/02/22 17:58: Lactic Acid 1.1 08/02/22 17:58: WBC 18.9 H, RBC 3.95 L, Hgb 9.3 L, Hct 30.9 L, MCV 78.2 L, MCH 23.5 L, MCHC 30.1 L, RDW Std Deviation 66.1 H, RDW Coeff of Robyn 23.6 H, Plt Count 406, MPV 9.6, Neut % (Auto) Not Reportable, Absolute Neuts (auto) 16.1 H, Absolute Lymphs (auto) 1.70, Total Counted 100, Neutrophils % (Manual) 83 H, Band Neutrophils % 2, Lymphocytes % (Manual) 9 L, Monocytes % (Manual) 3, Metamyelocytes % 1, Myelocytes % 2 H, Diff Path Review May darius, Platelet Estimate ADEQUATE, Anisocytosis 2+, Microcytosis 1+, Macrocytosis 1+ 08/03/22 08:00: Vancomycin Trough 14.6 08/03/22 08:00: WBC 14.4 H, RBC 3.58 L, Hgb 8.5 L, Hct 28.1 L, MCV 78.5 L, MCH 23.7 L, MCHC 30.2 L, RDW Std Deviation 66.0 H, RDW Coeff of Robyn 23.3 H, Plt Count 360, MPV 10.2, Neut % (Auto) Not Reportable, Absolute Neuts (auto) 10.7 H, Absolute Lymphs (auto) 1.10, Total Counted 100, Neutrophils % (Manual) 85 H, Band Neutrophils % 1, Lymphocytes % (Manual) 8 L, Monocytes % (Manual) 1, Metamyelocytes % 1, Myelocytes % 4 H, Diff Path Review May darius, Anisocytosis 1+ 08/03/22 08:00: Sodium 138, Potassium 5.3 H, Chloride 111 H, Carbon Dioxide 21.0, Anion Gap 6, BUN 12, Creatinine 0.61, Estim Creat Clear Calc 108.51, Est GFR (MDRD) Af Amer 146, Est GFR (MDRD) Non-Af 121, BUN/Creatinine Ratio 19.7, Glucose 87, Calcium 7.7 L Micro: Microbiology 07/30/22 14:55 Wound Abcess - Abdominal Gram Stain - Final 07/30/22 14:55 Wound Abcess - Abdominal Wound Culture - Final Actinomyces neuii 07/30/22 15:22 Tissue - Abdominal Gram Stain - Final 07/30/22 15:22 Tissue - Abdominal Wound Culture - Final Enterobacter cloacae complex 07/30/22 15:22 Tissue - Abdominal Anaerobic Culture - Preliminary 07/28/22 19:52 Wound - Abdominal Gram Stain - Final 07/28/22 19:52 Wound - Abdominal Wound Culture - Final Pseudomonas aeroginosa Enterococcus faecalis 07/28/22 19:52 Wound - Abdominal Anaerobic Culture - Final Porphyromonas species Anaerobic cocci Radiography Diagnostic Testing: Radiology Impression Chest CTA 08/02/22 17:17 IMPRESSION: Limited evaluation due to heavy streak artifact. Despite limitations: No acute abnormalities in the chest. Specifically, no evidence of acute pulmonary emboli to the segmental level. Electronically Signed: Tarik Valencia MD at 19:09 EST , Physical Exam Narrative Physical exam General: Alert, Oriented x3, Cooperative, morbid obesity BMI 47 kg/m? HEENT: Atraumatic, PERRLA, EOMI, Normocephalic Oral: Oral mucosa moist. No Gingival or Mucosal Lesions/ Ulcerations Neck: Supple, No JVD, Negative Carotid Bruits Lungs: Air entry diminished in bilateral lung bases. No crepitation/rhonchi Cardiovascular: Regular rate, Regular Rhythm, Normal S1, Normal S2, No murmurs Abdomen: Bowel Sounds Present, Soft, Non-Distended. Mild lower abdominal/pelvic tenderness due to wound : Valenzuela catheter present, clear urine no renal angle tenderness. No suprapubic tenderness. Extremities: No edema, Capillary Refill Less than 3 Seconds Skin: Large open operative wound after section. Wound VAC placed. surrounding cellulitis improved Musculoskeletal: No Tenderness to Palpation of Joints or Extremities. ROM intact. Neurological: Cranial nerves II-XII grossly intact, DTR 2+/4 and Symmetrical, Neuro grossly intact Psych/Mental Status: Normal Affect, Appropriate. Assessment & Plan Assessment/Plan (1) Acute renal failure: PLAN: Plan 1. Postoperative wound infection, due to polymicrobial necrotizing fasciitis after on 07/12/2022: Patient is being admitted to [facility] floor under OPERATION AGENT service. 08/02: . Operative tissue gram stain and culture growing Pseudomonas, Enterococcus faecalis, and anaerobic cocci. Patient on vancomycin, meropenem and clindamycin. Patient had fever on 07/31, T-max 100.7 Fahrenheit. ID consult. Discontinue clindamycin. Follow-up final culture report. Wound nurses consulted. Wound photo reviewed shows subcutaneous tissue with fine adherent slough with granulation tissue. Deep debridement was done. Patient has wound VAC placed. Patient had CT abdomen in July 30 which shows large area of edematous change with evidence of air in the deep subcutaneous tissue overlying left flank extending to lower pelvic region. No drainable abscess or fluid. This was being addressed by the surgical [employer]ATOR [employer] team. T scan from OSH was negative for any large abscess or extension into the abdominal cavity 08/03: No fever. Patient had operative debridement on 07/30/[address] Brody. ID recommended to stop vancomycin and continue meropenem. Patient has hives with penicillin and cefdinir. 2. ANGEL most likely prerenal: ANGEL resolved, BUN/creatinine normal. Discontinue IV fluid. 3. Morbid obesity: BMI 47.0 kg/m?. Weight loss counseling done. Patient also has facial hair near the chin therefore might have hyperandrogenism with suspicion of PCOD. 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
[2022-08-03 13:48] VITALS: BP 99/57; PULSE 100; RESP 18; TEMP 36.5; O2SAT 100
--- NOTE | 2022-08-03 14:50 | PCM.PN.BLA ---
Progress Note followed up with patient, up in chair continuing to improve, feeling well and afebrile. s/p PT OT evaluation. espinoza out. discussed discharge planning for possibly tomorrow.
--- NOTE | 2022-08-03 14:51 | DCINST_ITS ---
Discharge Instructions Diet Discharge Diet: No restrictions Activity Discharge Activity: Return to Normal Activity, May Drive (when pain free and off narcotic pain meds), May Shower and May Take a Tub Bath (in 4 weeks) May resume sexual activity in: 6 weeks Weight Bearing Status: Full weight bearing Lifting Restrictions: under 30 lbs for 6 weeks Dressing / Incision Call your doctor if your incision/area has: Continuous Slow Oozing, Sudden Increased Bleeding, Increased Pain/ Swelling, Increased Redness, Foul Smelling Discharge and - Call your doctor if you observe: Fever of 101 or Higher, Using more than 1 pad per hour, Shortness of breath, Chest pain and Uncontrolled pain Suture Line Care: Avoid Pulling/Pushing and Avoid Pinching/Bending Change Dressing in: do not change dressing (wound vacuum per home health nurse) Follow Up Care Please Follow Up With: Lise Grimes MD When: Call to make an appointment with your doctor for a postop visit next week Test Results: Test results from this visit will be discussed in further detail at your follow- up appointment, if applicable. Discharge Plan Admission Admit Date/Time: 07/28/22 20:29 Primary Reason for Your Visit: wound infection Attending Provider: Renata Camp Primary Care Provider: Yann Dexter Consulting Providers: Eh Nair ; Santiago Bush ; Jaquan Mcnulty ; Ryan Peoples Discharge Orders/Prescriptions Prescriptions: New enoxaparin [Lovenox] 40 mg/0.4 mL syringe 40 mg subcut BID 14 Days Qty: 11.2 1RF docusate sodium [DOK] 100 mg capsule 100 mg PO BID Qty: 60 3RF oxycodone 5 mg tablet 5 mg PO Q6H PRN (Reason: pain) 7 Days Qty: 28 0RF Rx Instructions: may take two at one time 30 minutes prior to wound vac change linezolid 600 mg tablet 600 mg PO BID Qty: 5 0RF ciprofloxacin HCl [Cipro] 500 mg tablet 500 mg PO BID Qty: 5 0RF metronidazole 500 mg tablet 500 mg PO TID Qty: 8 0RF doxycycline hyclate 100 mg capsule 100 mg PO BID Qty: 30 0RF No Action prenat.vits,mirian,[id number] Tablet 1 tab PO DAILY omeprazole 40 mg capsule,delayed release(DR/EC) 20 mg PO BID Referrals / Follow Up: Yann Dexter MD [Primary Care Provider] - Disposition Disposition (needs filled in before D/C Order can be placed): Home Health Service
[2022-08-03 18:22] VITALS: BP 114/82; PULSE 82; RESP 18; TEMP 36.5; O2SAT 100
[2022-08-03 22:08] VITALS: BP 102/67; PULSE 99; RESP 18; TEMP 36.9; O2SAT 100
[2022-08-03 23:55] LABS: Platelet Estimate ADEQUATE (ADEQ)
[2022-08-04 04:30] VITALS: BP 101/64; PULSE 93; RESP 18; TEMP 37.1; O2SAT 100
[2022-08-04] MEDS: Heparin Injection (Vial) 5,000 UNIT/ML VIAL 5000 UNIT SC ×2 (04:57→13:13)
[2022-08-04] MEDS: oxyCODONE 5 MG Tablet 10 MG PO ×3 (05:00→17:14)
[2022-08-04] MEDS: Acetaminophen 500 MG Tablet 1000 MG PO ×2 (05:00→17:14)
--- NOTE | 2022-08-04 07:37 | PCM.PN.OB ---
Subjective Subjective pt is up and walking around room. She states that she is not in a hurry to be discharged but would like to know hat the plan will be. No shortness of breath, chest pain, or fevers. Still has mild lochia from delivery. Objective Data Objective Data Vital Signs: Vital Signs Temp Pulse Resp BP Pulse Ox O2 Del Method O2 Flow Rate 98.8 F 93 18 101/64 100 Room Air 2 08/04/22 04:30 08/04/22 04:30 08/04/22 04:30 08/04/22 04:30 08/04/22 04:30 08/04/22 04:30 07/31/22 05:00 FiO2 25 07/30/22 23:00 Oxygen Flow Rate (L/min) 2 Oxygen Delivery Method Room Air Weight: 274 lb 4.081 oz Body Mass Index (BMI) 47.4 Intake & Output: Intake and Output for Last 24 Hours 08/02/22 08/03/22 08/04/22 23:59 23:59 23:59 Intake Total 3360 / 3360 1885 / 1885 120 / 120 Output Total 1550 / 2400 1500 / 1500 Balance 1810 / 960 385 / 385 120 / 120 Lab / Micro Data Result Diagrams: 08/03/22 08:00 08/03/22 08:00 Labs: Laboratory Results - last 24 hr 07/30/22 : Diff Path Review Reviewed 07/31/22 03:10: Diff Path Review Reviewed 07/31/22 23:00: Diff Path Review Reviewed 08/01/22 04:30: Diff Path Review Reviewed 08/03/22 08:00: Vancomycin Trough 14.6 08/03/22 08:00: WBC 14.4 H, RBC 3.58 L, Hgb 8.5 L, Hct 28.1 L, MCV 78.5 L, MCH 23.7 L, MCHC 30.2 L, RDW Std Deviation 66.0 H, RDW Coeff of Robyn 23.3 H, Plt Count 360, MPV 10.2, Neut % (Auto) Not Reportable, Absolute Neuts (auto) 10.7 H, Absolute Lymphs (auto) 1.10, Total Counted 100, Neutrophils % (Manual) 85 H, Band Neutrophils % 1, Lymphocytes % (Manual) 8 L, Monocytes % (Manual) 1, Metamyelocytes % 1, Myelocytes % 4 H, Diff Path Review May foll, Platelet Estimate ADEQUATE, Anisocytosis 1+ 08/03/22 08:00: Sodium 138, Potassium 5.3 H, Chloride 111 H, Carbon Dioxide 21.0, Anion Gap 6, BUN 12, Creatinine 0.61, Estim Creat Clear Calc 108.51, Est GFR (MDRD) Af Amer 146, Est GFR (MDRD) Non-Af 121, BUN/Creatinine Ratio 19.7, Glucose 87, Calcium 7.7 L Micro: Microbiology 07/30/22 14:55 Wound Abcess - Abdominal Gram Stain - Final 07/30/22 14:55 Wound Abcess - Abdominal Wound Culture - Final Actinomyces neuii 07/30/22 15:22 Tissue - Abdominal Gram Stain - Final 07/30/22 15:22 Tissue - Abdominal Wound Culture - Final Enterobacter cloacae complex 07/30/22 15:22 Tissue - Abdominal Anaerobic Culture - Preliminary 07/28/22 19:52 Wound - Abdominal Gram Stain - Final 07/28/22 19:52 Wound - Abdominal Wound Culture - Final Pseudomonas aeroginosa Enterococcus faecalis 07/28/22 19:52 Wound - Abdominal Anaerobic Culture - Final Porphyromonas species Anaerobic cocci Radiography Diagnostic Testing: Radiology Impression Venous Doppler Study 08/02/22 17:17 Interpretation Summary Deep veins of the bilateral lower extremities are patent and compressible segmentally. There is no evidence of bilateral lower extremity deep vein thrombosis. The bilateral great saphenous veins appear patent and compressible segmentally. Ordering Physician: Lise Grimes Referring Physician: Lise Grimes Performed By: Hema Monroe, RVT ROS Narrative see hpi Constitutional Constitutional: Reports as per HPI, night sweats and poor appetite; Denies body ache(s), change in weight or chills ENT HEENT: Denies dizziness Cardiovascular Cardiovascular: Denies chest pain, dizziness, edema, lightheadedness or nausea Respiratory/Chest Respiratory/Chest: Denies change in mental status, chest tightness or cough Gastrointestinal Gastrointestinal: Reports constipation; Denies cramping, diarrhea or vomiting Genitourinary Genitourinary: Denies dysuria, flank pain or genital pain Musculoskeletal Musculoskeletal: Denies muscle weakness Psychiatric Psychiatric: Denies confusion, depression, hopelessness, irritability or memory loss Physical Exam Narrative alert and oriented, comfortable Const alert and no apparent distress Constitutional Narrative: drowsy but arousable, recent dilaudid administration General Appearance: cooperative and comfortable Orientation / Consciousness: awake, oriented to person, oriented to place and oriented to time HEENT normocephalic Lymph Lymphatic: no lymphadenopathy noted Resp normal respiratory effort and normal air movement Resp Narrative: diminished at bases bilaterally CTAB Effort and Inspection: symmetric chest movement Cardio regular rate and regular rhythm Cardio Narrative: sinus tach nl s1s2 GI GI Narrative: wound vac in place, more tenderness over left than right, mild erythema around all incision Extremity normal to inspection Extremity Narrative: mild swelling no calf tenderness Skin Skin Narrative: see GI narrative Neuro oriented x3 and CN's II-XII intact bilaterally Psych Appearance: grossly normal and appropriate Activity / Motor Behavior: appropriate eye contact Assessment & Plan (1) Fever: COMMENT: neg CT chest, ordered LE dopplers, nl lactic acid, pending blood cultures, ua and culture ordered. suspect post transfusion response versus inflammatory response from wound dressing change and vacuum application (2) Anemia associated with acute blood loss: COMMENT: s/p 1 unit PRBC (3) Necrotizing cellulitis: COMMENT: left lower abdomen, s/p surgical abdominal wall debridement x [address] palomares, IV meropenum, vancomycin, clindamycin. culture growing pseudomonas, enterobacter, and Enterococcus. ID consultation (4) Acute renal failure: COMMENT: Likely secondary to infection and dehydration. Initial creatinine over 2 and now down to normal (5) delivery delivered: COMMENT: 07/12- SROM 38 SM LTCS MEJIA ortega (6) History of gastric bypass: (7) Cellulitis of skin: COMMENT: IV Vanc and meropenum, clindamycin (8) Wound infection following section, : COMMENT: see cellulitis a/p. PLAN: Plan patient is 3 weeks post with necrotizing infection, acute renal failure- greatly appreciate medical team to help with management of renal failure - heparin for dvt prophylaxis, normal diet, activity as tolerated. - h/o gastric sleeve surgery, morbid obesity, PCOS - IV ABx continued - pseudomonas, enterobacter, enterococcus so far. ID consultation and plan greatly appreciated - anemia acute on chronic due to infection and blood loss, s/p 1 unit. hg stable - PT OT consultation - mild hyperkalemia likely due to infection and blood transfusion -wound care following for wound vac management. Charges/Coding Visit Charges Inpatient E&M: 10576 Subs Hosp L2
[2022-08-04 07:40] LABS: Absolute Neutrophil Count 8.6 X10^3/uL (2.0-7.7); Basophil# 0.05 X10^3/uL; Basophil% 0.4 % (0-1); Eosinophils% 2.5 % (0-5); Hematocrit 26.5 % (37-47); Hemoglobin 7.9 g/dL (12.0-15.0); Lymphocyte % 14.3 % (19-41); Mean Corp Hgb Conc 29.8 g/dL (32-36); Mean Corpuscular Hgb 23.9 pg (27.0-32.0); Mean Corpuscular Volume 80.1 fL (81-99); Monocyte# 0.65 X10^3/uL; Monocyte% 5.5 % (0-10); NRBC Flagged by Analyzer 0 % (0-5); Neutrophil # 8.58 X10^3/uL (2.7-7.7); Neutrophil % 72.5 % (47-70); POSITIVE MORPHOLOGY YES; Platelet Count 393 K/mm3 (150-450); RBC Distribution Width CV 23.2 % (11.6-14.6); RBC Distribution Width SD 67.4 fl (35.1-43.9); Red Blood Count 3.31 M/mm3 (4.2-5.4); White Blood Count 11.9 K/mm3 (4.4-11.0)
[2022-08-04 07:47] LABS: Anion Gap 7 (5-15); BUN 12 mg/dL (7-18); BUN/Creat Ratio 23.9 RATIO (10-20); Calcium,Total 7.6 mg/dL (8.5-10.1); Chloride 109 mmol/L (98-107); EST Glomerular Filtration Rate 150 mL/min (>60); Est Glom Filt Rate - Afr Amer 182 mL/min (>60); Estimated Creatinine Clearance 132.38 ml/min; Glucose 95 mg/dL (74-106); Potassium 3.8 mmol/L (3.5-5.1); Sodium Level 139 mmol/L (136-145)
[2022-08-04 08:55] LABS: Anisocytosis 1+
[2022-08-04 08:56] LABS: Differential Indicated SCAN CRITERIA MET
[2022-08-04 09:04] VITALS: BP 110/77; PULSE 94; RESP 18; TEMP 36.4; O2SAT 99
[2022-08-04] MEDS: Famotidine 20 MG Tablet PO (09:14)
[2022-08-04] MEDS: Ensure Plus High Protein 120 ML LIQUID PO ×2 (09:14→13:13)
--- NOTE | 2022-08-04 12:59 | CASEMGMT ---
Addendum entered by Adali Mccarthy 08/04/22 16:20: Message to [facility] for fax number to send dc instructions to once available after hours. Received response to attach in the morning. RN GEOVANNA will do so. Original Note: Spoke with who states per ID, pt will be on po atb at mo. Spoke with wound nurse who will change dressing today and next change will be on Tuesday. Pt does owe a copay for wound vac. TC to [facility] for rx called in by ID. Per pharmacy, no prior auth needed and cost for the 3 meds, cipro, flagyl and linezolid is $11.64. BRIDGET [place] in to pt room, pt has rx from [facility] already. She is aware that she will be on lovenox and states her father has had in the past and she feels she can do this. Made her aware the nurse will review with her. Pt currently does not feel that she needs therapy. Pt is aware that should she change her mind once at home to notify the nurse. Pt has a walker that she will use at home that is from her grandma. Pt is aware to make sure [facility] knows which address she will be at when they call to schedule. She states she is going to pay for the wound vac for a month and see how it goes. Pt denies any other questions. Spoke with pt nurse regarding need for lovenox teaching.
[2022-08-04 13:10] VITALS: BP 110/79; PULSE 87; RESP 18; TEMP 36.7; O2SAT 100
[2022-08-04] MEDS: 0.9% Saline Lock 10 ML Syringe IV ×2 (13:14→17:10)
[2022-08-04] MEDS: HYDROmorphone 1 MG/ML Syringe IV (13:14)
--- NOTE | 2022-08-04 13:23 | PCM.PN.SRG ---
Subjective Subjective Patient up to the chair, doing well tolerating diet. Objective Data Objective Data Vital Signs: Vital Signs Temp Pulse Resp BP Pulse Ox O2 Del Method O2 Flow Rate 98.1 F 87 18 110/79 100 Room Air 2 08/04/22 13:10 08/04/22 13:10 08/04/22 13:10 08/04/22 13:10 08/04/22 13:10 08/04/22 13:10 07/31/22 05:00 FiO2 25 07/30/22 23:00 Oxygen Flow Rate (L/min) 2 Oxygen Delivery Method Room Air Weight: 274 lb 4.081 oz Body Mass Index (BMI) 47.4 Intake & Output: Intake and Output for Last 24 Hours 08/02/22 08/03/22 08/04/22 23:59 23:59 23:59 Intake Total 3360 / 3360 1885 / 1885 240 / 240 Output Total 1550 / 2400 1500 / 1500 Balance 1810 / 960 385 / 385 240 / 240 Lab / Micro Data Result Diagrams: 08/04/22 07:10 08/04/22 07:10 Labs: Laboratory Results - last 24 hr 08/03/22 08:00: Platelet Estimate ADEQUATE 08/04/22 07:10: WBC 11.9 H, RBC 3.31 L, Hgb 7.9 L, Hct 26.5 L, MCV 80.1 L, MCH 23.9 L, MCHC 29.8 L, RDW Std Deviation 67.4 H, RDW Coeff of Robyn 23.2 H, Plt Count 393, MPV 10.0, Immature Gran % (Auto) 4.800 H, Neut % (Auto) 72.5 H, Lymph % (Auto) 14.3 L, [place] % (Auto) 5.5, Eos % (Auto) 2.5, Baso % (Auto) 0.4, Absolute Neuts (auto) 8.6 H, Absolute Lymphs (auto) 1.70, Nucleated RBC % 0, Anisocytosis 1+ 08/04/22 07:10: Sodium 139, Potassium 3.8, Chloride 109 H, Carbon Dioxide 23.0, Anion Gap 7, BUN 12, Creatinine 0.50 L, Estim Creat Clear Calc 132.38, Est GFR (MDRD) Af Amer 182, Est GFR (MDRD) Non-Af 150, BUN/Creatinine Ratio 23.9 H, Glucose 95, Calcium 7.6 L Micro: Microbiology 08/02/22 17:53 Urine Catheter - Valenzuela Urine Culture - Final Culture exhibits no growth. 07/30/22 14:55 Wound Abcess - Abdominal Gram Stain - Final 07/30/22 14:55 Wound Abcess - Abdominal Wound Culture - Final Actinomyces neuii 07/30/22 15:22 Tissue - Abdominal Gram Stain - Final 07/30/22 15:22 Tissue - Abdominal Wound Culture - Final Enterobacter cloacae complex 07/30/22 15:22 Tissue - Abdominal Anaerobic Culture - Preliminary 07/28/22 19:52 Wound - Abdominal Gram Stain - Final 07/28/22 19:52 Wound - Abdominal Wound Culture - Final Pseudomonas aeroginosa Enterococcus faecalis 07/28/22 19:52 Wound - Abdominal Anaerobic Culture - Final Porphyromonas species Anaerobic cocci Radiography Diagnostic Testing: Radiology Impression Venous Doppler Study 08/02/22 17:17 Interpretation Summary Deep veins of the bilateral lower extremities are patent and compressible segmentally. There is no evidence of bilateral lower extremity deep vein thrombosis. The bilateral great saphenous veins appear patent and compressible segmentally. Ordering Physician: Lise Grimes Referring Physician: Lise Grimes Performed By: Hema Monroe RVSam Physical Exam Const oriented x3 Resp normal respiratory effort Cardio regular rate GI GI Narrative: Abdomen: Soft, nondistended, tender lower abd wound --wound VAC in place Assessment & Plan Assessment/Plan (1) Necrotizing cellulitis: PLAN: Plan Wound VAC in place. No further fevers and white blood count has improved. ID consulted for ongoing antibiotics. Continue regular diet. Patient will follow-up in our office next week as well as have home health for the wound VAC changes. Ameena Brody M.D. Pager: [phone] [facility] [address] [place] [address], [facility], [address] [place] [address] Office: [phone]
--- NOTE | 2022-08-04 13:26 | PCM.PN.ID ---
Physical Exam Narrative Feeling better, discharge planned, no fever Const alert and no apparent distress Resp normal air movement and clear to auscultation bilaterally Cardio regular rate and regular rhythm GI soft to palpation and non-distended GI Narrative: mild soreness Skin Skin Narrative: no new rash ID ID: Route of nutrition/ use of supplements: [] Nutritional Intake: [] IV Site: [] Valenzuela Catheter: [] Assessment & Plan Assessment/Plan (1) Necrotizing cellulitis: PLAN: sepsis and ANGEL due to polymicrobial necrotizing fasciitis s/p 07/13/22. Taken to OR 07/30/[address] Brody. Wound doing well now. Fever and ANGEL resolved, wbc improving. Surg cx and wound cx with enterobacter, actino, PsA, enterococcus, and anaerobes. On tri. Reports hives with PCN and cefdinir. Ok for home with 3 more days linezolid, cipro, flagyl and 14 more days doxy to cover for the actinomyces. Wrote rx. ID followup as needed. Will follow (2) Acute renal failure:
[2022-08-04 14:00] LABS: Pathologist Review Reviewed
[2022-08-04 14:06] LABS: Pathologist Review Reviewed
--- NOTE | 2022-08-04 14:20 | PCM.PN.HOSP ---
Subjective Subjective Follow-up for necrotizing fasciitis with polymicrobial infection status post section. Patient is able to walk and ambulate. Discharge plan today. Objective Data Objective Data Vital Signs: Vital Signs Temp Pulse Resp BP Pulse Ox O2 Del Method O2 Flow Rate 98.1 F 87 18 110/79 100 Room Air 2 08/04/22 13:10 08/04/22 13:10 08/04/22 13:10 08/04/22 13:10 08/04/22 13:10 08/04/22 13:10 07/31/22 05:00 FiO2 25 07/30/22 23:00 Oxygen Flow Rate (L/min) 2 Oxygen Delivery Method Room Air Weight: 274 lb 4.081 oz Body Mass Index (BMI) 47.4 Intake & Output: Intake and Output for Last 24 Hours 08/02/22 08/03/22 08/04/22 23:59 23:59 23:59 Intake Total 3360 / 3360 1885 / 1885 240 / 240 Output Total 1550 / 2400 1500 / 1500 Balance 1810 / 960 385 / 385 240 / 240 Lab / Micro Data Result Diagrams: 08/04/22 07:10 08/04/22 07:10 Labs: Laboratory Results - last 24 hr 08/02/22 08:00: Diff Path Review Reviewed 08/02/22 17:58: Diff Path Review Reviewed 08/03/22 08:00: Platelet Estimate ADEQUATE 08/04/22 07:10: WBC 11.9 H, RBC 3.31 L, Hgb 7.9 L, Hct 26.5 L, MCV 80.1 L, MCH 23.9 L, MCHC 29.8 L, RDW Std Deviation 67.4 H, RDW Coeff of Robyn 23.2 H, Plt Count 393, MPV 10.0, Immature Gran % (Auto) 4.800 H, Neut % (Auto) 72.5 H, Lymph % (Auto) 14.3 L, [place] % (Auto) 5.5, Eos % (Auto) 2.5, Baso % (Auto) 0.4, Absolute Neuts (auto) 8.6 H, Absolute Lymphs (auto) 1.70, Nucleated RBC % 0, Anisocytosis 1+ 08/04/22 07:10: Sodium 139, Potassium 3.8, Chloride 109 H, Carbon Dioxide 23.0, Anion Gap 7, BUN 12, Creatinine 0.50 L, Estim Creat Clear Calc 132.38, Est GFR (MDRD) Af Amer 182, Est GFR (MDRD) Non-Af 150, BUN/Creatinine Ratio 23.9 H, Glucose 95, Calcium 7.6 L Micro: Microbiology 08/02/22 17:53 Urine Catheter - Valenzuela Urine Culture - Final Culture exhibits no growth. 07/30/22 14:55 Wound Abcess - Abdominal Gram Stain - Final 07/30/22 14:55 Wound Abcess - Abdominal Wound Culture - Final Actinomyces neuii 07/30/22 15:22 Tissue - Abdominal Gram Stain - Final 07/30/22 15:22 Tissue - Abdominal Wound Culture - Final Enterobacter cloacae complex 07/30/22 15:22 Tissue - Abdominal Anaerobic Culture - Preliminary 07/28/22 19:52 Wound - Abdominal Gram Stain - Final 07/28/22 19:52 Wound - Abdominal Wound Culture - Final Pseudomonas aeroginosa Enterococcus faecalis 07/28/22 19:52 Wound - Abdominal Anaerobic Culture - Final Porphyromonas species Anaerobic cocci Physical Exam Narrative Physical exam General: Alert, Oriented x3, Cooperative, morbid obesity BMI 47 kg/m? HEENT: Atraumatic, PERRLA, EOMI, Normocephalic Oral: Oral mucosa moist. No Gingival or Mucosal Lesions/ Ulcerations Neck: Supple, No JVD, Negative Carotid Bruits Lungs: Air entry equal in bilateral lung bases. No crepitation/rhonchi Cardiovascular: Regular rate, Regular Rhythm, Normal S1, Normal S2, No murmurs Abdomen: Bowel Sounds Present, Soft, Non-Distended. Abdominal tenderness in pelvic area has improved : Valenzuela catheter present, clear urine no renal angle tenderness. No suprapubic tenderness. In puerperium. Mild lochia discharge. Extremities: No edema, Capillary Refill Less than 3 Seconds Skin: Large open operative wound after section. Wound VAC placed. surrounding cellulitis improved Musculoskeletal: No Tenderness to Palpation of Joints or Extremities. ROM intact. Neurological: Cranial nerves II-XII grossly intact, DTR 2+/4 and Symmetrical, Neuro grossly intact Psych/Mental Status: Normal Affect, Appropriate. Assessment & Plan Assessment/Plan (1) Acute renal failure: PLAN: Plan 1. Postoperative wound infection, due to polymicrobial necrotizing fasciitis after on 07/12/2022: Patient is being admitted to [facility] under [facility]HEMMER service. 08/02: . Operative tissue gram stain and culture growing Pseudomonas, Enterococcus faecalis, and anaerobic cocci. Patient on vancomycin, meropenem and clindamycin. Patient had fever on 07/31, T-max 100.7 Fahrenheit. ID consult. Discontinue clindamycin. Follow-up final culture report. Wound nurses consulted. Wound photo reviewed shows subcutaneous tissue with fine adherent slough with granulation tissue. Deep debridement was done. Patient has wound VAC placed. Patient had CT abdomen in July 30 which shows large area of edematous change with evidence of air in the deep subcutaneous tissue overlying left flank extending to lower pelvic region. No drainable abscess or fluid. This was being addressed by the surgical CONTAINERS SALES REPRESENTATIVE team. T scan from OSH was negative for any large abscess or extension into the abdominal cavity 08/03: No fever. Patient had operative debridement on 07/30/[address] Brody. ID recommended to stop vancomycin and continue meropenem. Patient has hives with penicillin and cefdinir. 08/04: ID follow-up appreciated. Discussed with Dr. Peoples. Surgical culture and wound culture shows Enterobacter, actinomyces, Pseudomonas, Enterococcus and anaerobic cocci. Patient is discharged on 3 more days of linezolid Cipro Flagyl and 14 more days of Doxy to cover for actinomyces. 2. ANGEL most likely prerenal: ANGEL resolved, BUN/creatinine normal. Discontinue IV fluid. 3. Morbid obesity: BMI 47.0 kg/m?. Weight loss counseling done. Patient also has facial hair near the chin therefore might have hyperandrogenism with suspicion of PCOD. Will need outpatient evaluation management by CONTAINERS SALES REPRESENTATIVE/antisqueak chalker DVT: Heparin Patient is medically stable for discharge. Follow-up with CONTAINERS SALES REPRESENTATIVE as mentioned in discharge instruction. Advised follow-up with ID. Charges/Coding Visit Charges Inpatient E&M: 01739 Subs Hosp L2
--- NOTE | 2022-08-04 16:10 | WOUNDNOTE ---
Home VAC approved. wound VAC dressing was changed today. reviewed the VAC alarms, etc. with patient. proof of delivery form signed and faxed back to [facility]. pt and mely deny questions at this time. demonstrated canister change as well. Pt will follow up with Dr Brody next week. no further questions or concerns voiced.
--- NOTE | 2022-08-04 16:27 | DS.PCM_ITS ---
Providers Date of Admission: 07/28/22 Primary Care Physician: Dr. Yann Dexter MD Consultations 07/28/22 20:03 Consult: Onc/Wound/vinyl dipper Routine Comment: Reason for Consult:: section wound. Comments:: please evaluate for possible wound vac 07/28/22 20:35 Consult: Hospitalist Routine Consulting Provider: Santiago Bush Reason for Consult: section wound, renal injury EMERGENT Consult: No Notified: Yes Date Notified: 07/28/22 Time Notified: 20:35 Method of Notification: Verbal 08/02/22 09:21 Consult: Infectious Disease Routine Consulting Provider: Ryan Peoples Reason for Consult: Surgical wound infection EMERGENT Consult: No Notified: Yes Date Notified: 08/02/22 Time Notified: 09:21 Method of Notification: Text 08/02/22 20:01 Consult: Infectious Disease Routine Consulting Provider: Ryan Peoples Reason for Consult: SURGICAL WOUND INFECTION EMERGENT Consult: No Notified: Yes Date Notified: 08/02/22 Time Notified: 20:02 Method of Notification: Answering Service Method of Consult:: In-Person Comments:: DUPLICATE ORDER BUT NO NOTE SEEN FROM I.S Reason For Visit: ABDOMINAL WALL CELLULITIS, ACUTE KIDNEY INJURY Diagnosis Discharge Diagnosis (1) Acute renal failure: Status: Acute Code(s): N17.9 - Acute kidney failure, unspecified Plan patient is 3 weeks post with necrotizing infection, acute renal failure- greatly appreciate medical team to help with management of renal failure - heparin for dvt prophylaxis, normal diet, activity as tolerated. - h/o gastric sleeve surgery, morbid obesity, PCOS - IV ABx continued - pseudomonas, enterobacter, enterococcus so far. ID consultation and plan greatly appreciated - anemia acute on chronic due to infection and blood loss, s/p 1 unit. hg stable - PT OT consultation - mild hyperkalemia likely due to infection and blood transfusion -wound care following for wound vac management. Medications at Discharge Home Medications prenat.vits,mirian,[id number] 1 tab PO DAILY Check with primary doctor 12/08/21 omeprazole 40 mg capsule,delayed release 20 mg PO BID heart burn 07/29/22 docusate sodium 100 mg capsule (DOK) 100 mg PO BID #60 caps 08/03/22 enoxaparin 40 mg/0.4 mL subcutaneous syringe (Lovenox) 40 mg (0.4 mL) subcut BID 14 days #11.2 mL 08/03/22 oxycodone 5 mg tablet 5 mg PO Q6H PRN pain 7 days #28 tabs 08/03/22 ciprofloxacin HCl 500 mg tablet (Cipro) 500 mg PO BID #5 tabs 08/04/22 doxycycline hyclate 100 mg capsule 100 mg PO BID #30 caps 08/04/22 linezolid 600 mg tablet 600 mg PO BID #5 tabs 08/04/22 metronidazole 500 mg tablet 500 mg PO TID #8 tabs 08/04/22 Hospital Course Operations - (panniculectomy, debridement of wound ) Summary of Care Provided Minutes Spent on Discharge: 25 Hospital Course: GEOFF MG, is a 32 Fy/o who presents to [facility] from [facility] due to acute renal failure and possible wound infection. She is status post section with BTL on 07/13/[address] Grimes. At [facility] she was found to have an elevated Cr level and in acute renal failure. CT was ordered and shows some subcutaneous air. She was transported to [facility] on 07/28/22 and started on IV abx and hospitalist was consulted to aid in treatment of her renal failure. on hospital day #2 she was feeling a little better and her Cr came down. on HD #3 she complained of worsening pain and CT was repeated showing signs of necrotizing fasciitis. General surgery was consulted and on 07/30/[address] Brody and Lizbet operated on her to debride tissue. She recovered in the ICU intubated but self extubated around midnight. The next day (HD#4) she was brought back to the OR for further wound debridement. On 08/03/22 infectious disease was consulted and adjusted antibiotics based on her culture results. on 08/04/22 She was cleared by medicine, ID, and general surgery to do outpatient follow up with the wound center and home antibiotics. Physical Exam Narrative alert and oriented, comfortable Const alert, oriented x3 and no apparent distress Constitutional Narrative: drowsy but arousable, recent dilaudid administration General Appearance: cooperative and comfortable Orientation / Consciousness: awake, oriented to person, oriented to place and oriented to time HEENT normocephalic Lymph Lymphatic: no lymphadenopathy noted Resp normal respiratory effort and normal air movement Resp Narrative: diminished at bases bilaterally CTAB Effort and Inspection: symmetric chest movement Cardio regular rate and regular rhythm Cardio Narrative: sinus tach nl s1s2 GI GI Narrative: wound vac in place, more tenderness over left than right, mild erythema around all incision Extremity normal to inspection Extremity Narrative: mild swelling no calf tenderness Skin Skin Narrative: see GI narrative Neuro oriented x3 and CN's II-XII intact bilaterally Psych Appearance: grossly normal and appropriate Activity / Motor Behavior: appropriate eye contact Weight / BMI Weight Weight: 274 lb 4.081 oz Body Mass Index (BMI) 47.4 ABG / Lab / Microbiology Data Result Diagrams: 08/04/22 07:10 08/04/22 07:10 Laboratory: Laboratory Results - last 24 hr 08/02/22 08:00: Diff Path Review Reviewed 08/02/22 17:58: Diff Path Review Reviewed 08/03/22 08:00: Platelet Estimate ADEQUATE 08/04/22 07:10: WBC 11.9 H, RBC 3.31 L, Hgb 7.9 L, Hct 26.5 L, MCV 80.1 L, MCH 23.9 L, MCHC 29.8 L, RDW Std Deviation 67.4 H, RDW Coeff of Robyn 23.2 H, Plt Count 393, MPV 10.0, Immature Gran % (Auto) 4.800 H, Neut % (Auto) 72.5 H, Lymph % (Auto) 14.3 L, Ashe % (Auto) 5.5, Eos % (Auto) 2.5, Baso % (Auto) 0.4, Absolute Neuts (auto) 8.6 H, Absolute Lymphs (auto) 1.70, Nucleated RBC % 0, Anisocytosis 1+ 08/04/22 07:10: Sodium 139, Potassium 3.8, Chloride 109 H, Carbon Dioxide 23.0, Anion Gap 7, BUN 12, Creatinine 0.50 L, Estim Creat Clear Calc 132.38, Est GFR (MDRD) Af Amer 182, Est GFR (MDRD) Non-Af 150, BUN/Creatinine Ratio 23.9 H, Glucose 95, Calcium 7.6 L Microbiology: Microbiology 07/30/22 14:55 Wound Abcess - Abdominal Gram Stain - Final 07/30/22 14:55 Wound Abcess - Abdominal Wound Culture - Final Actinomyces neuii 07/30/22 14:55 Wound Abcess - Abdominal Anaerobic Culture - Final Anaerobic cocci 07/30/22 15:22 Tissue - Abdominal Gram Stain - Final 07/30/22 15:22 Tissue - Abdominal Wound Culture - Final Enterobacter cloacae complex 08/02/22 17:53 Urine Catheter - Valenzuela Urine Culture - Final Culture exhibits no growth. 07/28/22 19:52 Wound - Abdominal Gram Stain - Final 07/28/22 19:52 Wound - Abdominal Wound Culture - Final Pseudomonas aeroginosa Enterococcus faecalis 07/28/22 19:52 Wound - Abdominal Anaerobic Culture - Final Porphyromonas species Anaerobic cocci D/C Instructions Discharge Diet: No restrictions May resume sexual activity in: 6 weeks Weight Bearing Status: Full weight bearing Call your doctor if your incision/area has: Continuous Slow Oozing, Sudden Increased Bleeding, Increased Pain/ Swelling, Increased Redness, Foul Smelling Discharge and - Call your doctor if you observe: Fever of 101 or Higher, Using more than 1 pad per hour, Shortness of breath, Chest pain and Uncontrolled pain Suture Line Care: Avoid Pulling/Pushing and Avoid Pinching/Bending Please Follow Up With: Lise Grimes MD When: Call to make an appointment with your doctor for a postop visit next week Meaningful Use Info Meaningful Use Diagnoses (Choose all that apply): None applicable Discharge Plan Admission Admit Date/Time: 07/28/22 20:29 Primary Reason for Your Visit: wound infection Attending Provider: Renata Camp Primary Care Provider: Yann Dexter Consulting Providers: Eh Nair ; Santiago Bush ; Jaquan Mcnulty ; Ryan Peoples Discharge Orders/Prescriptions Prescriptions: New enoxaparin [Lovenox] 40 mg/0.4 mL syringe 40 mg subcut BID 14 Days Qty: 11.2 1RF docusate sodium [DOK] 100 mg capsule 100 mg PO BID Qty: 60 3RF oxycodone 5 mg tablet 5 mg PO Q6H PRN (Reason: pain) 7 Days Qty: 28 0RF Rx Instructions: may take two at one time 30 minutes prior to wound vac change linezolid 600 mg tablet 600 mg PO BID Qty: 5 0RF ciprofloxacin HCl [Cipro] 500 mg tablet 500 mg PO BID Qty: 5 0RF metronidazole 500 mg tablet 500 mg PO TID Qty: 8 0RF doxycycline hyclate 100 mg capsule 100 mg PO BID Qty: 30 0RF No Action prenat.vits,mirian,[id number] Tablet 1 tab PO DAILY omeprazole 40 mg capsule,delayed release(DR/EC) 20 mg PO BID Referrals / Follow Up: Yann Dexter MD [Primary Care Provider] - Disposition Disposition (needs filled in before D/C Order can be placed): Home Health Service Charges/Coding Multi Select Codes Visit Charges Visit Charges: 78041 Disch Hosp
--- NOTE | 2022-08-05 08:38 | CASEMGMT ---
DC Summary uploaded to [facility] and sent to [facility] at this time.
[2022-08-05 10:35] LABS: Pathologist Review Reviewed
== END 2022-08-04 18:40 | disposition home health service (06) | DRG 776 ==
LOC: PCU 07-30 17:31 → ICU 07-30 17:47 → MS3 08-01 14:43
PROVIDERS: Hospitalist; Internal Medicine Critical Care Medicine; Obstetrics & Gynecology; Surgery; Admitting Provider Obstetrics & Gynecology; PCP Family Medicine; Visit Provider Obstetrics & Gynecology
PROC: 02HV33Z Insertion of Infusion Device into Superior Vena Cava, Percutaneous Approach (ICD-10-PCS; CPT 49000; principal; 2022-07-30 15:15)
PROC: 0HB7XZZ Excision of Abdomen Skin, External Approach (ICD-10-PCS; CPT 49000; principal; 2022-07-31 07:45)
DX: O85 Puerperal sepsis (principal); M72.6 Necrotizing fasciitis; O90.4 Postpartum acute kidney failure; N17.9 Acute kidney failure, unspecified; D62 Acute posthemorrhagic anemia; E87.29 Other acidosis; L03.311 Cellulitis of abdominal wall; Z68.42 Body mass index [BMI] 45.0-49.9, adult; E66.01 Morbid (severe) obesity due to excess calories; E86.0 Dehydration; E87.5 Hyperkalemia; B95.62 Methicillin resistant Staphylococcus aureus infection as the cause of diseases classified elsewhere; O90.81 Anemia of the puerperium; O99.73 Diseases of the skin and subcutaneous tissue complicating the puerperium; Z98.84 Bariatric surgery status; O86.01 Infection of obstetric surgical wound, superficial incisional site; O99.215 Obesity complicating the puerperium; O99.893 Other specified diseases and conditions complicating puerperium; O99.285 Endocrine, nutritional and metabolic diseases complicating the puerperium; O99.03 Anemia complicating the puerperium; B96.5 Pseudomonas (aeruginosa) (mallei) (pseudomallei) as the cause of diseases classified elsewhere
CPT/HCPCS: 36415; 36600; 71045; 71275; 74018; 74177; 80048; 80053; 80202; 81001; 82550; 82803; 83605; 84478; 85025; 85384; 85610; 85730; 86850; 86900; 86901; 86920; 86922; 87015; 87040; 87070; 87075; 87077; 87086; 87116; 87176; 87184; 87186; 87205; 87206; 87640; 88304; 88305; 93970; 94002; 97162; 97802; 97803; 99252; J2185; J7030; J7040; J7050; J7120; P9016; Q9967; A4216; C1751; G0463; J2405; J3010

== ENCOUNTER 2022-08-29 05:03 | Emergency (ER) | payer BC, MEDICAID, SELFPAY ==
[2022-08-29 05:06] VITALS: BP 121/63; PULSE 90; RESP 16; TEMP 36.4; O2SAT 98; BMI 43.5
--- NOTE | 2022-08-29 05:32 | EDS_ITS ---
HPI History of Present Illness Chief Complaint: Wound Check Informant: patient Narrative Narrative: Patient presents secondary to her wound VAC canister being full. She had surgery for necrotizing cellulitis over the lower abdomen last month. Wound VAC was placed at that time. Patient states that her supplies did not come in and her wound VAC canister is full. She has an appointment to be seen tomorrow and then is to go to [facility] on for reconstructive surgery. [facility], [facility] Medical History Anemia Gastric polyp GERD (gastroesophageal reflux disease) Home Medications prenat.vits,mirian,[id number]-[id number] 1 tab PO DAILY Check with primary doctor 12/08/21 [History Last Taken 07/12/22] omeprazole 40 mg capsule,delayed release 20 mg PO BID heart burn 07/29/22 [History Last Taken 07/28/22 09:00] oxycodone 5 mg tablet 5 mg PO Q6H PRN pain 7 days #28 tabs 08/03/22 [Rx Last Taken Unknown] ciprofloxacin HCl 500 mg tablet (Cipro) 500 mg PO BID #5 tabs 08/04/22 [Rx Last Taken Unknown] doxycycline hyclate 100 mg capsule 100 mg PO BID #30 caps 08/04/22 [Rx Last Take n Unknown] metronidazole 500 mg tablet 500 mg PO TID #8 tabs 08/04/22 [Rx Last Taken Unknown] Allergy/AdvReac Type Severity Reaction Status Date / Time amoxicillin [From Amoxil] Allergy Intermediate hives Verified 07/27/22 14:06 cefdinir Allergy Hives Verified 07/27/22 14:06 adhesive tape AdvReac Mild Rash Verified 07/27/22 14:06 Family History Father Hypertension Cancer prostate Aortic aneurysm DVT (deep venous thrombosis) Mother Hypertension Grandmother Cancer cervical Surgical History S/P gastric surgery Status post hip surgery Social History adopted: No household members: significant other number of children: 2 current occupational status: employed current occupation: [employer] pets and animals: No Smoking Status: Never smoker alcohol intake: never substance use type: does not use caffeine: No do you feel safe at home: Yes additional social history: Shweta Sethi ROS ROS ED Constitutional Constitutional ED: Denies chills or fever(s) Eyes Eyes: Denies change in vision or discharge from eye(s) ENT ENT ED: Denies discharge from eye(s), rhinorrhea or sore throat Cardiovascular Cardiovascular: Denies chest pain or palpitations Respiratory/Chest Respiratory/Chest: Denies cough or dyspnea Gastrointestinal Gastrointestinal: Reports abdominal pain; Denies diarrhea, nausea or vomiting Genitourinary Genitourinary ED: Denies difficulty urinating or dysuria Musculoskeletal Musculoskeletal: Denies back pain or extremity pain Integumentary Reports other Details: Abdominal wall wound with wound VAC in place. ; Denies Abrasions or rash Neurologic Neurologic: Denies headache(s) or weakness Psychiatric Psychiatric: Denies anxiety or depression Allergic/Immunologic Allergic/Immunologic ED: Denies lip swelling or urticaria EXAM Physical Exam Const Vital Signs: 08/29/22 05:06 Temperature 97.6 F L Temperature Source Oral Pulse Rate 90 Respiratory Rate 16 Blood Pressure 121/63 H Blood Pressure Mean 82 Pulse Ox 98 Oxygen Delivery Method Room Air Positive well nourished and well developed General Appearance ED: well developed HEENT Reports normocephalic and head/scalp atraumatic Eyes PERRL and EOMs intact bilaterally Neck supple Chest Wall inspection of chest normal and palpation of chest normal Resp normal respiratory effort and clear to auscultation bilaterally Cardio regular rate and regular rhythm GI GI Narrative: Wound VAC over lower abdomen. Palpation: soft Back/Spine no CVA tenderness Extremity normal to inspection Neuro oriented x3 and no sensory deficits noted Sensorium / Orientation: alert Motor Exam: strength 5/5 throughout Psych mental status grossly normal MDM MDM MDM Narrative Medical decision making narrative: Nursing grocery supervisor was able to procure 2 wound VAC canisters for the patient. She will be discharged home with new supplies. Discharge Plan Triage Chief Complaint: Wound Check Other Complaint: Wound ED Provider: Renata Mo Dx/Rx/DC Orders Clinical Impression: Encounter for management of wound VAC Instructions: ED Post Op Wound Check, General Prescriptions: No Action prenat.vits,mirian,[id number] Tablet 1 tab PO DAILY omeprazole 40 mg capsule,delayed release(DR/EC) 20 mg PO BID oxycodone 5 mg tablet 5 mg PO Q6H PRN (Reason: pain) 7 Days Qty: 28 0RF Rx Instructions: may take two at one time 30 minutes prior to wound vac change ciprofloxacin HCl [Cipro] 500 mg tablet 500 mg PO BID Qty: 5 0RF metronidazole 500 mg tablet 500 mg PO TID Qty: 8 0RF doxycycline hyclate 100 mg capsule 100 mg PO BID Qty: 30 0RF Primary Care Provider: Yann Dexter Referrals: Yann Dexter MD [Primary Care Provider] - Disposition Disposition: Home, Self Care
[2022-08-29 06:38] VITALS: BP 120/60; PULSE 80; RESP 16; O2SAT 98
[2022-08-29 06:46] VITALS: BP 132/80; PULSE 74; RESP 17; TEMP 36.7; O2SAT 99
== END 2022-08-29 06:48 | disposition home or self-care (01) ==
PROVIDERS: Emergency Provider Emergency Medicine; PCP Family Medicine; Visit Provider Emergency Medicine
DX: Z76.89 Persons encountering health services in other specified circumstances (principal); R10.9 Unspecified abdominal pain; K21.9 Gastro-esophageal reflux disease without esophagitis; D64.9 Anemia, unspecified
CPT/HCPCS: 99282